=== PATIENT | male | born 1970 | race Caucasian/White ===

== ENCOUNTER 2020-12-19 17:03 | Emergency (ER) | payer OTHER, SELFPAY ==
--- NOTE | 2020-12-19 | ECG_ITS ---
Test Reason : HYPERTENSION Blood Pressure : / mmHG Vent. Rate : 071 BPM Atrial Rate : 071 BPM P-R Int : 168 ms QRS Dur : 088 ms QT Int : 414 ms P-R-T Axes : 019 006 012 degrees QTc Int : 449 ms Normal sinus rhythm Normal ECG When compared with ECG of 12-JUL-2017 01:51, No significant change was found Referred By: Generic ED Physician Electronically Signed By:FRIEDA LUBIN MD
--- NOTE | ~2020-12-19 | US_ITS ---
EXAMINATION: US VENOUS ULTRASOUND WITH DOPPLER LOWER EXTREMITY, BILATERAL CLINICAL INFORMATION: Leg pain. COMPARISON: None TECHNIQUE: Ultrasound of the deep veins is performed from the hip to the calf with compression sonography and color and pulse Doppler assessment. Spectral analysis with color-flow imaging is performed. FINDINGS: RIGHT: There is normal venous compression and respiratory variation and augmented flow. The visualized common femoral vein, superficial femoral vein, profunda femoral vein, popliteal vein, and the trifurcation region shows no evidence of deep venous thrombosis. There is no significant popliteal fossa cyst. No evidence of thrombus within the peroneal and posterior tibial veins. LEFT: There is normal venous compression and respiratory variation and augmented flow. The visualized common femoral vein, superficial femoral vein, profunda femoral vein, popliteal vein, and the trifurcation region shows no evidence of deep venous thrombosis. There is no significant popliteal fossa cyst. No evidence of thrombus in the peroneal and posterior tibial veins. If the patient's symptoms persist, followup ultrasound in 5 days 7 days might be of value to exclude proximal propagation from a non-visualized calf vein. US/US venous duplex LE IMPRESSION: No DVT demonstrated in the bilateral lower extremities.
[2020-12-19 17:27] VITALS: BP 146/100; PULSE 83; RESP 18; TEMP 36.7; O2SAT 97; BMI 35.9
[2020-12-19 18:38] LABS: Hematocrit 45.5 % (42-52); Hemoglobin 14.9 g/dl (14.0-18.0); Mean Corpuscular HGB Conc 32.7 g/dl (31.0-36.0); Mean Corpuscular Hemoglobin 29.5 pg (27.0-33.0); Mean Corpuscular Volume 90.1 fL (80-98); Mean Platelet Volume 10.6 fL (9.4-12.4); Platelet Count 198 X10*3/uL (160-400); Red Blood Count 5.05 X10*6/uL (4.60-5.80)
[2020-12-19 18:48] LABS: Anion Gap 13 (12-20); Blood Urea Nitrogen 14 mg/dL (9-16); Calcium 9.2 mg/dL (8.4-10.2); Carbon Dioxide 25 mmol/L (22-29); Chloride 109 mmol/L (96-108); Creatinine Clr Calc Pharmacy 130.2; Estimated Glomerular Filt Rate > 60; Glucose Random 96 mg/dL (60-115); Potassium 4.4 mmol/L (3.3-5.1); Sodium 143 mmol/L (135-145)
[2020-12-19 22:00] VITALS: BP 141/76; PULSE 78; RESP 16; TEMP 37; O2SAT 97
[2020-12-19 22:52] VITALS: BP 141/74; PULSE 66; RESP 16; TEMP 36.7; O2SAT 98
--- NOTE | 2020-12-19 23:16 | ED_ITS ---
HPI - General Adult General Chief complaint: General Medical Stated complaint: leg pain Time Seen by Provider: 12/19/20 23:03 History of Present Illness HPI narrative: Patient is 50 years old presents today with having bilateral leg pain has been ongoing for few days. Has a history of being on Coumadin. Patient claims compliance with medication. No fever no chills. No diaphoresis. No nausea no vomiting. Patient from home. No trauma. Related Data Previous Rx's Medication Instructions Recorded ibuprofen 400 mg PO Q6H PRN #20 tab 12/20/20 Allergies Allergy/AdvReac Type Severity Reaction Status Date / Time No Known Allergies Allergy Verified 12/19/20 17:27 Review of Systems Review of Systems: Constitutional: No Weight loss, No Fever, No Chills, No Night Sweats, No Fatigue, No Malaise ENT/Mouth: No Hearing loss, No Ear Pain, No Nasal Congestion, No Sinus Pain, No Hoarseness, No sore throat, No Rhinorrhea, No Swallowing Difficulty Eyes: No Eye Pain, No Swelling, No Redness, No Foreign Body, No Discharge, No Vision Changes Cardiovascular: No Chest Pain, No SOB, No Dyspnea on Exertion, No Orthopnea, No Edema, No Palpitations Respiratory: No Cough, No Sputum, No Wheezing, No Smoke Exposure, No Dyspnea Gastrointestinal: No Nausea, No Vomiting, No Diarrhea, No Constipation, No abdo cornelius Pain, No Hematochezia, No Melena Genitourinary: no irregular bleeding, No Dysuria, No Urinary Frequency, No Hematuria, No Urinary Incontinence, No Urgency, No Flank Pain, No Urinary Flow Changes, No Hesitancy Musculoskeletal: No joint pain, No Myalgias, No Joint Swelling. Positive bilateral lower extremity pain Skin: No Skin Lesions, No rash Neuro: No Weakness, No Numbness, No Paresthesias, No Loss of Consciousness, No Dizziness, No Headache Psych: No Anxiety/Panic, No Depression, No SI/HI/AH/VH, No Social Issues, Heme/Lymph: No Bruising, No Bleeding,No Lymphadenopathy Endocrine: No Polyuria, No Polydipsia, No Temperature Intolerance Yes all other systems are reviewed and are negative [facility] Past Medical History Attestation statement: The following information was validated with the patient. Medical History Depression DVT (deep venous thrombosis) Social History Social History Advance Directives: No Advance Directives Information Provided: Yes Physical Exam Vital Signs: Vital Signs: Last Vital Signs Temp 98.1 F 12/19/20 22:52 Pulse 66 12/19/20 22:52 Resp 16 12/19/20 22:52 BP 141/74 H 12/19/20 22:52 Pulse Ox 98 12/19/20 22:52 Body Mass Index 35.9 Appearance: Alert. Oriented X3. No acute distress. Eyes: Pupils equal, round and reactive to light. ENT: Pharynx normal. Neck: Normal inspection. Neck supple. No lymph nodes noted. No crepitus CVS: Normal heart rate and rhythm. Pulses normal. Normal S1 and S2 Respiratory: No respiratory distress. Breath sounds normal. No Wheezing. No rales Abdomen: Soft and nontender. No rigidity. No distention. good BS x4 Skin: Skin warm and dry. Normal skin color. Normal skin turgor. Extremities: No lower extremity edema. Neurovascular intact to all extremities. No Lacerations. No Rash. No calf tenderness elicited on palpation. Full range of motion. Pulses 2+ at dorsalis pedis bilaterally. Sensation of the foot intact. Neuro: Oriented X 3. No motor deficit. No sensory deficit. Moving all extermities. No slurred speech Medical Decision Making MDM Narrative Medical decision making narrative: Patient has nonspecific bilateral leg pain. There is no swelling. No travel history. Grossly able the bend the knee moves the ankle move the hip. The Doppler bilateral lower extremity was negative for DVT. Patient's creatinine is normal. Patient take Motrin for the nonspecific ache. Close follow-up outpatient basis. Lab Data Result diagrams: 12/19/20 18:20 12/19/20 18:20 Labs: Lab Results 12/19/20 12/19/20 12/19/20 Range/Units 18:20 18:20 23:25 WBC 7.0 (4.8-10.8) X10*3/uL RBC 5.05 (4.60-5.80) X10*6/uL Hgb 14.9 (14.0-18.0) g/dl Hct 45.5 (42-52) % MCV 90.1 (80-98) fL MCH 29.5 (27.0-33.0) pg MCHC 32.7 (31.0-36.0) g/dl RDW 13.0 (11.0-16.0) % Plt Count 198 (160-400) X10*3/uL MPV 10.6 (9.4-12.4) fL Absolute Nucleated RBC 0.000 (0.0-0.012) X10*3/uL Nucleated RBC % (auto) 0.0 (0.0-0.2) /100WBC PT 38.3 H (10.8-13.0) SEC INR 3.2 H (0.9-1.1) Sodium 143 (135-145) mmol/L Potassium 4.4 (3.3-5.1) mmol/L Chloride 109 H (96-108) mmol/L Carbon Dioxide 25 (22-29) mmol/L Anion Gap 13 (12-20) BUN 14 (9-16) mg/dL Creatinine 0.95 (0.5-1.4) mg/dL Estim Creat Clear Calc 130.2 Estimated GFR > 60 Random Glucose 96 (60-115) mg/dL Calcium 9.2 (8.4-10.2) mg/dL Discharge Plan Discharge Clinical Impression: Acute leg pain Patient Disposition: Home, Self-Care Instructions: Leg Pain (ED) Prescriptions: New ibuprofen 400 mg tablet 400 mg PO Q6H PRN (Reason: pain) Qty: 20 RF: 0 Referrals: Gordon Cheng MD [Primary Care Provider] - 2 days
[2020-12-19 23:50] LABS: INTERNATIONAL NORM RATIO 3.2 (0.9-1.1); Prothrombin Time 38.3 SEC (10.8-13.0)
== END 2020-12-20 02:50 | disposition home or self-care (01) ==
PROVIDERS: Emergency Provider Emergency Medicine Emergency Medical Services; PCP Internal Medicine
DX: M79.605 Pain in left leg (principal); M79.604 Pain in right leg; Z86.718 Personal history of other venous thrombosis and embolism
CPT/HCPCS: 36415; 80048; 85027; 85610; 93005; 93970; 99284

== ENCOUNTER 2021-08-27 10:39 | Emergency (ER) | payer OTHER, SELFPAY ==
--- NOTE | 2021-08-27 | ECG_ITS ---
Test Reason : chest pain Blood Pressure : / mmHG Vent. Rate : 077 BPM Atrial Rate : 077 BPM P-R Int : 158 ms QRS Dur : 086 ms QT Int : 386 ms P-R-T Axes : 037 005 008 degrees QTc Int : 436 ms Normal sinus rhythm Cannot rule out Anterior infarct , age undetermined Abnormal ECG When compared with ECG of 19-DEC-2020 18:16, No significant change was found Referred By: Generic ED Physician Electronically Signed By:FRIEDA LUBIN MD
--- NOTE | ~2021-08-27 | XR_ITS ---
EXAMINATION: XR CHEST CLINICAL INFORMATION: Chest pain. COMPARISON: Most recent CT chest dated 08/26/2018. TECHNIQUE: 2 views of the chest were obtained. FINDINGS: Stable linear scarring versus atelectasis within the left midlung. No new airspace consolidation. Redemonstration of multiple calcified granulomas. No pleural effusion or pneumothorax. Stable cardiomediastinal silhouette. XR/XR chest 2V IMPRESSION: No acute cardiopulmonary findings.
[2021-08-27 10:44] VITALS: BP 134/82; PULSE 76; RESP 20; TEMP 37.1; O2SAT 98; BMI 34.7
[2021-08-27 11:06] VITALS: BP 114/71; PULSE 78; RESP 10; TEMP 37.1; O2SAT 98
[2021-08-27 11:16] VITALS: BP 113/65; PULSE 79; RESP 14; O2SAT 97
[2021-08-27 11:20] LABS: Basophils Percent Auto 0.4 % (0-2); Eosinophils Absolute Auto 0.2 X10*3/uL (0.0-0.4); Eosinophils Percent Auto 3.5 % (0-4); Hematocrit 50.2 % (42.0-52.0); Hemoglobin 16.7 g/dl (14.0-18.0); Imm Gran Abs Auto 0.02 X10*3/uL (0.00-0.03); Imm Gran Pct Auto 0.3 % (0.0-0.4); Lymphocytes Absolute Auto 1.7 X10*3/uL (1.2-4.9); Lymphocytes Percent Auto 25.7 % (20-40); MANUAL DIFF FLAG NO; Mean Corpuscular HGB Conc 33.3 g/dl (31.0-36.0); Mean Corpuscular Hemoglobin 29.5 pg (27.0-33.0); Mean Corpuscular Volume 88.5 fL (80.0-98.0); Monocytes Absolute Auto 0.4 X10*3/uL (0.1-1.2); Monocytes Percent Auto 5.9 % (2-11); Neutrophils Absolute Auto 4.4 x10*3/uL (2.0-8.3); Neutrophils Percent Auto 64.2 % (45-73); Platelet Count 198 X10*3/uL (160-400); Red Blood Count 5.67 X10*6/uL (4.60-5.80); Red Cell Distribution Width 13.2 % (11.0-16.0); White Blood Count 6.8 X10*3/uL (4.8-10.8)
[2021-08-27 11:25] LABS: INTERNATIONAL NORM RATIO 2.4 (0.9-1.1); Prothrombin Time 28.3 SEC (9.9-13.0)
[2021-08-27 11:29] LABS: D Dimer High Sensitivity < 150 NG/ML
[2021-08-27 11:31] LABS: IDNOW Serial# 16C4AD1C
[2021-08-27 11:32] LABS: COVID-19 Test Negative (Negative)
--- NOTE | 2021-08-27 11:37 | ED_ITS ---
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 Reports feeling off over the weekend with chills and fatigue Admits CP worse on deep inspiration. Denies cough, abdominal pain, nausea/vomiting, numbness/tingling, pedal edema, recent travel complaint: chest discomfort Onset (ago): hour(s) Related Data Previous Rx's Medication Instructions Recorded ibuprofen 400 mg tablet 400 mg PO Q6H PRN #20 tab 12/20/20 Allergies Allergy/AdvReac Type Severity Reaction Status Date / Time No Known Allergies Allergy Verified 08/27/21 10:49 Review of Systems Review of Systems: Constitutional:No Fever, + Chills, + Fatigue, + Malaise ENT/Mouth: No Ear Pain, No Nasal Congestion, No sore throat, No Rhinorrhea, No Swallowing Difficulty Eyes: No Eye Pain, No Swelling, No Redness, No Discharge Cardiovascular: + Chest Pain, + SOB, No Dyspnea on Exertion, No Orthopnea, No Edema, No Palpitations Respiratory: No Cough, No Sputum, No Dyspnea Gastrointestinal: No Nausea, No Vomiting, No Diarrhea, No Constipation, No Abdominal pain Genitourinary: No irregular bleeding, No Dysuria, No Urinary Frequency, No Hematuria, No Urgency, No Flank Pain Musculoskeletal: No joint pain, No Myalgias, No Joint Swelling Skin: No Skin Lesions, No rash Neuro: No Weakness, No Numbness, No Paresthesias, No Loss of Consciousness, No Dizziness, No Headache Yes all other systems are reviewed and are negative [facility] Past Medical History Attestation statement: The following information was validated with the patient. Medical History Depression DVT (deep venous thrombosis) Social History Social History Alcohol intake: never Patient Tobacco Use Status: Never used Tobacco Use of substances other than those prescribed or required for medical reasons: No Advance Directives: No Advance Directives Information Provided: No Physical Exam Vital Signs: Vital Signs: Last Vital Signs Temp 98.6 F 08/27/21 12:24 Pulse 77 08/27/21 12:24 Resp 12 08/27/21 12:24 BP 116/67 08/27/21 12:24 Pulse Ox 97 08/27/21 12:24 BMI result Body Mass Index 34.7 Const: General: cooperative, healthy appearing and no acute distress Orientation/consciousness: patient oriented x3 Limitations: no limitations HENMT: Head: Yes normal to inspection and Yes atraumatic Ears: hearing grossly normal bilaterally General nose exam: Normal external nose present Face and sinus: Yes normal facial exam Eyes: General: appearance normal, both eyes and all related structures EOM: EOMs intact bilaterally Neck: Neck: Yes normal visual inspection and Yes no meningeal signs Chest: Chest palpation & inspection: normal inspection of the chest, no crepitus and no tenderness Resp: Effort & Inspection: normal respiratory effort and no respiratory distress Auscultation: clear to auscultation bilaterally, no rales, no rhonchi and no wheezes Cardio: Rate: regular rate Heart sounds: S1 normal heart sound present and S2 normal heart sound present GI: Inspection: Yes normal to inspection Palpation (GI): Soft to palpation, nontender, no guarding and not rigid Skin: Rashes: no rashes Wounds: no wounds Neuro: General: patient oriented x3 and no meningeal signs Gait exam (Neuro): Normal gait present Extrem: General: Yes normal to inspection, Yes no pedal edema and Yes no calf tenderness Course Course Course Narrative: -1254--no leukocytosis. INR therapeutic, D-dimer negative. Troponin negative, labs otherwise unremarkable XR chest 2V IMPRESSION: No acute cardiopulmonary findings. -1447--repeat troponin equivocal. Mi unlikely. 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 Reports feeling off over the weekend with chills and fatigue. On exam vital signs stable, NAD/nontoxic, lungs CTA, no pedal edema/calf tenderness. CP not reproducible. Concern for viral syndrome/COVID-19 vs ACS vs DVT although patient anticoagulated Plan: EKG, labs, CXR, COVID-19 testing, re-evaluate Differential Diagnosis Differential diagnosis: Likely atypical chest pain and chest pain Medical Records Data Attestation: I reviewed the patient's medical records. Lab Data Attestation: I reviewed the patient's lab results. Result diagrams: 08/27/21 11:13 08/27/21 11:13 Labs: Lab Results 08/27/21 08/27/21 08/27/21 Range/Units 11:08 11:13 11:13 WBC 6.8 (4.8-10.8) X10*3/uL RBC 5.67 (4.60-5.80) X10*6/uL Hgb 16.7 (14.0-18.0) g/dl Hct 50.2 (42.0-52.0) % MCV 88.5 (80.0-98.0) fL MCH 29.5 (27.0-33.0) pg MCHC 33.3 (31.0-36.0) g/dl RDW 13.2 (11.0-16.0) % Plt Count 198 (160-400) X10*3/uL MPV 10.0 (9.4-12.4) fL Immature Gran % (Auto) 0.3 (0.0-0.4) % Neut % (Auto) 64.2 (45-73) % Lymph % (Auto) 25.7 (20-40) % [place] % (Auto) 5.9 (2-11) % Eos % (Auto) 3.5 (0-4) % Baso % (Auto) 0.4 (0-2) % Lymph # (Auto) 1.7 (1.2-4.9) X10*3/uL [place] # (Auto) 0.4 (0.1-1.2) X10*3/uL Eos # (Auto) 0.2 (0.0-0.4) X10*3/uL Baso # (Auto) 0.0 (0.0-0.2) X10*3/uL Abs Immat Gran (auto) 0.02 (0.00-0.03) X10*3/uL Absolute Neuts (auto) 4.4 (2.0-8.3) x10*3/uL Absolute Nucleated RBC 0.000 (0.0-0.012) X10*3/uL Nucleated RBC % (auto) 0.0 (0.0-0.2) /100WBC PT (9.9-13.0) SEC INR (0.9-1.1) D-Dimer High Sensitivty NG/ML Sodium 140 (135-145) mmol/L Potassium 4.3 (3.3-5.1) mmol/L Chloride 103 (96-108) mmol/L Carbon Dioxide 29 (22-29) mmol/L Anion Gap 12 (12-20) BUN 14 (9-16) mg/dL Creatinine 0.99 (0.5-1.4) mg/dL Estim Creat Clear Calc 121.3 Estimated GFR > 60 Random Glucose 92 (60-115) mg/dL Calcium 9.6 (8.4-10.2) mg/dL Magnesium (1.6-2.6) mg/dL Total Bilirubin (0.0-1.0) mg/dL Direct Bilirubin (0.0-0.5) mg/dL AST (5-37) U/L ALT (0-40) U/L Alkaline Phosphatase (39-117) U/L Troponin I High Sens (<3.5-35.0) ng/L B-Natriuretic Peptide (<100) pg/mL Total Protein (6.5-8.0) g/dL Albumin (3.5-5.0) g/dL COVID-19 ([place]) Negative (Negative) COVID-19 Clin Com See Note 08/27/21 08/27/21 08/27/21 Range/Units 11:13 11:13 11:13 WBC (4.8-10.8) X10*3/uL RBC (4.60-5.80) X10*6/uL Hgb (14.0-18.0) g/dl Hct (42.0-52.0) % MCV (80.0-98.0) fL MCH (27.0-33.0) pg MCHC (31.0-36.0) g/dl RDW (11.0-16.0) % Plt Count (160-400) X10*3/uL MPV (9.4-12.4) fL Immature Gran % (Auto) (0.0-0.4) % Neut % (Auto) (45-73) % Lymph % (Auto) (20-40) % [place] % (Auto) (2-11) % Eos % (Auto) (0-4) % Baso % (Auto) (0-2) % Lymph # (Auto) (1.2-4.9) X10*3/uL [place] # (Auto) (0.1-1.2) X10*3/uL Eos # (Auto) (0.0-0.4) X10*3/uL Baso # (Auto) (0.0-0.2) X10*3/uL Abs Immat Gran (auto) (0.00-0.03) X10*3/uL Absolute Neuts (auto) (2.0-8.3) x10*3/uL Absolute Nucleated RBC (0.0-0.012) X10*3/uL Nucleated RBC % (auto) (0.0-0.2) /100WBC PT (9.9-13.0) SEC INR (0.9-1.1) D-Dimer High Sensitivty < 150 NG/ML Sodium (135-145) mmol/L Potassium (3.3-5.1) mmol/L Chloride (96-108) mmol/L Carbon Dioxide (22-29) mmol/L Anion Gap (12-20) BUN (9-16) mg/dL Creatinine (0.5-1.4) mg/dL Estim Creat Clear Calc Estimated GFR Random Glucose (60-115) mg/dL Calcium (8.4-10.2) mg/dL Magnesium 2.2 (1.6-2.6) mg/dL Total Bilirubin 0.8 (0.0-1.0) mg/dL Direct Bilirubin 0.3 (0.0-0.5) mg/dL AST 15 (5-37) U/L ALT 10 (0-40) U/L Alkaline Phosphatase 70 (39-117) U/L Troponin I High Sens < 3.5 (<3.5-35.0) ng/L B-Natriuretic Peptide (<100) pg/mL Total Protein 7.3 (6.5-8.0) g/dL Albumin 4.4 (3.5-5.0) g/dL COVID-19 ([place]) (Negative) COVID-19 Clin Com 08/27/21 08/27/21 08/27/21 Range/Units 11:13 11:13 14:18 WBC (4.8-10.8) X10*3/uL RBC (4.60-5.80) X10*6/uL Hgb (14.0-18.0) g/dl Hct (42.0-52.0) % MCV (80.0-98.0) fL MCH (27.0-33.0) pg MCHC (31.0-36.0) g/dl RDW (11.0-16.0) % Plt Count (160-400) X10*3/uL MPV (9.4-12.4) fL Immature Gran % (Auto) (0.0-0.4) % Neut % (Auto) (45-73) % Lymph % (Auto) (20-40) % [place] % (Auto) (2-11) % Eos % (Auto) (0-4) % Baso % (Auto) (0-2) % Lymph # (Auto) (1.2-4.9) X10*3/uL [place] # (Auto) (0.1-1.2) X10*3/uL Eos # (Auto) (0.0-0.4) X10*3/uL Baso # (Auto) (0.0-0.2) X10*3/uL Abs Immat Gran (auto) (0.00-0.03) X10*3/uL Absolute Neuts (auto) (2.0-8.3) x10*3/uL Absolute Nucleated RBC (0.0-0.012) X10*3/uL Nucleated RBC % (auto) (0.0-0.2) /100WBC PT 28.3 H (9.9-13.0) SEC INR 2.4 H (0.9-1.1) D-Dimer High Sensitivty NG/ML Sodium (135-145) mmol/L Potassium (3.3-5.1) mmol/L Chloride (96-108) mmol/L Carbon Dioxide (22-29) mmol/L Anion Gap (12-20) BUN (9-16) mg/dL Creatinine (0.5-1.4) mg/dL Estim Creat Clear Calc Estimated GFR Random Glucose (60-115) mg/dL Calcium (8.4-10.2) mg/dL Magnesium (1.6-2.6) mg/dL Total Bilirubin (0.0-1.0) mg/dL Direct Bilirubin (0.0-0.5) mg/dL AST (5-37) U/L ALT (0-40) U/L Alkaline Phosphatase (39-117) U/L Troponin I High Sens < 3.5 (<3.5-35.0) ng/L B-Natriuretic Peptide < 10 (<100) pg/mL Total Protein (6.5-8.0) g/dL Albumin (3.5-5.0) g/dL COVID-19 ([place]) (Negative) COVID-19 Clin Com Discharge Plan Discharge Clinical Impression: Atypical chest pain Patient Disposition: Home, Self-Care Instructions: Chest Pain (ED) Additional Instructions: Your blood work was reassuring today Your chest x-ray was unremarkable. you tested negative for COVID-19 Please follow-up with her doctor and Cardiology. If her symptoms persist or worsen, pain becomes more constant/unbearable please return to the emergency department Prescriptions: No Action ibuprofen 400 mg tablet 400 mg PO Q6H PRN (Reason: pain) Qty: 20 0RF Referrals: Parish Lemus MD [Physician] - 5 days
[2021-08-27 11:43] LABS: Alanine Aminotransferase 10 U/L (0-40); Albumin Level 4.4 g/dL (3.5-5.0); Alkaline Phosphatase 70 U/L (39-117); Aspartate Amino Transferase 15 U/L (5-37); Bilirubin Direct 0.3 mg/dL (0.0-0.5); Bilirubin Total 0.8 mg/dL (0.0-1.0); Magnesium 2.2 mg/dL (1.6-2.6); Total Protein 7.3 g/dL (6.5-8.0)
[2021-08-27 11:44] LABS: B Type Natriuretic Peptide < 10 pg/mL (<100); Troponin-I High Sensitivity < 3.5 ng/L (<3.5-35.0)
[2021-08-27 11:57] LABS: Anion Gap 12 (12-20); Blood Urea Nitrogen 14 mg/dL (9-16); Calcium 9.6 mg/dL (8.4-10.2); Carbon Dioxide 29 mmol/L (22-29); Chloride 103 mmol/L (96-108); Creatinine Clr Calc Pharmacy 121.3; Estimated Glomerular Filt Rate > 60; Glucose Random 92 mg/dL (60-115); Potassium 4.3 mmol/L (3.3-5.1); Sodium 140 mmol/L (135-145)
[2021-08-27 12:24] VITALS: BP 116/67; PULSE 77; RESP 12; TEMP 37; O2SAT 97
[2021-08-27 14:44] LABS: Troponin-I High Sensitivity < 3.5 ng/L (<3.5-35.0)
[2021-08-27 14:56] VITALS: BP 102/66; PULSE 76; RESP 13; TEMP 37.1; O2SAT 97
== END 2021-08-27 15:05 | disposition home or self-care (01) ==
PROVIDERS: Physician Assistant; Emergency Provider Emergency Medicine; PCP Internal Medicine
DX: R07.89 Other chest pain (principal); R06.02 Shortness of breath; Z86.718 Personal history of other venous thrombosis and embolism; Z79.01 Long term (current) use of anticoagulants; Z20.822 Contact with and (suspected) exposure to COVID-19; Z79.899 Other long term (current) drug therapy
CPT/HCPCS: 36415; 71046; 80048; 80076; 83735; 83880; 84484; 85025; 85379; 85610; 87635; 93005; 99285

== ENCOUNTER 2021-08-29 12:44 | Emergency (ER) | payer OTHER, SELFPAY ==
--- NOTE | ~2021-08-29 | CT_ITS ---
EXAMINATION: CT HEAD WITHOUT CONTRAST CLINICAL INFORMATION: Confusion. Headache. Rule out bleed. COMPARISON: Previous head CT and brain MRI June 2017 TECHNIQUE: Contiguous axial imaging was performed from the skull base to vertex without intravenous administration of contrast. This CT examination was performed using dose optimization techniques as appropriate, variously including the following: *Automated exposure control *Adjustment of mA and/or kV according to patient size (this includes techniques or standardized protocols for targeted exams where dose is matched to indication/reason for exam; i.e. extremities or head) *Use of iterative reconstruction technique DLP: 752 mGy-cm FINDINGS: There is no evidence of acute intracranial hemorrhage or territorial infarction. No abnormal mass effect or midline shift is seen. Sharpe to white matter differentiation is well preserved. No extra-axial fluid collections are identified. The ventricles are normal in size. There is no abnormal attenuation within the brain parenchyma. The osseous structures and soft tissues are normal. The mastoid air cells and visualized portions of the paranasal sinuses are well aerated. CT/CT head/brain wo con IMPRESSION: No acute intracranial findings.
--- NOTE | ~2021-08-29 | XR_ITS ---
EXAMINATION: XR CHEST CLINICAL INFORMATION: Chest pain. Rule out pneumonia. COMPARISON: Previous chest x-ray most recent August 27, 2021 TECHNIQUE: 2 views of the chest were obtained. FINDINGS: The cardiac and mediastinal contours are stable. There are small right pulmonary nodules that are stable and probably represent calcified granulomas. There is linear scarring or subsegmental atelectasis at the left lung base. This is similar to recent exam. The lungs are otherwise clear. There is no pleural effusion or pneumothorax. There are degenerative changes of the spine. XR/XR chest 2V IMPRESSION: No evidence for acute disease in the chest.
[2021-08-29 13:22] VITALS: BP 133/80; PULSE 76; RESP 18; O2SAT 98; BMI 34.7
--- NOTE | 2021-08-29 14:25 | PC.NURSE ---
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 denies hallucinations or any unsafe thoughts or plans to hurt self or others.
[2021-08-29 15:05] LABS: Appearance Urine CLEAR; Color Urine YELLOW; Glucose Urine UA NEG (NEG); Leukocyte Esterase Urine NEG (NEG); Nitrite Urine NEG (NEG); UACC Culture Trigger NO; Urine Blood 2+ (NEG); Urine Ketones 15 MG/DL (NEG); Urine Protein NEG (NEG-TRACE)
--- NOTE | 2021-08-29 15:07 | ECG_ITS ---
Test Reason : MEDCLEARANCE Blood Pressure : / mmHG Vent. Rate : 066 BPM Atrial Rate : 066 BPM P-R Int : 162 ms QRS Dur : 096 ms QT Int : 428 ms P-R-T Axes : 024 007 008 degrees QTc Int : 448 ms Normal sinus rhythm Normal ECG When compared with ECG of 27-AUG-2021 10:47, No significant change was found Referred By: Allen Anna Electronically Signed By:FRIEDA LUBIN MD
--- NOTE | 2021-08-29 15:09 | ED.AMS ---
HPI - Altered Mental Status General Chief Complaint: Psychiatric Symptoms Stated Complaint: spaced out - sent from Dr office Time Seen by Provider: 08/29/21 14:23 Source: patient and family (, Alda) Mode of arrival: ambulatory Limitations: no limitations History of Present Illness HPI narrative: 51-year-old male who presents emergency department complaining of I feel very anxious, nervous and tired. According to his , today the patient seemed to be off. He was unable to recall details of what happened in the morning. The patient states that he is depressed and feeling very anxious. He cannot identify any trigger for his symptoms. He states he does have a history of depression but was feeling better and stopped his medications about a urine half prior. He states that he has been having difficulty sleeping over the past several nights he has had insomnia. He has also had a decreased appetite. The patient was seen in the emergency department on 08/27/2021 for substernal chest pressure and shortness of breath. At that time he also stated that he was feeling off over the weekend. 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 The patient's workup for his last ED visit was unremarkable, his INR was normal, his D-dimer was below detectable limits in his troponin was below detectable limits x2. Related Data Previous Rx's Medication Instructions Recorded ibuprofen 400 mg tablet 400 mg PO Q6H PRN #20 tab 12/20/20 lorazepam 2 mg tablet (Ativan) 2 mg PO TID PRN #14 tab 08/29/21 Allergies Allergy/AdvReac Type Severity Reaction Status Date / Time No Known Allergies Allergy Verified 08/27/21 10:49 [facility] Past Medical History Medical History Depression DVT (deep venous thrombosis) Social History Social History Alcohol intake: never Patient Tobacco Use Status: Never used Tobacco Advance Directives: No Advance Directives Information Provided: No Physical Exam ED Vital Signs: Vital Signs - 24 hr 08/29/21 13:22 Pulse Rate 76 Respiratory Rate 18 Blood Pressure 133/80 Pulse Oximetry 98 BMI result Body Mass Index 34.7 Course Course Course Narrative: 51-year-old male who presents emergency department for evaluation of multiple complaints including anxiety, depression, difficulty with his memory, chest pain, insomnia, decreased appetite. Patient does have a history of depression but has not been on medications for 1.5 years. Vital signs were unremarkable. Physical examination was unremarkable. The patient's workup included EKG, COVID-19, drug screen, urinalysis, CBC, alcohol, PT/INR, comprehensive metabolic panel, D-dimer, PTT and troponin. All of these tests were unremarkable. Patient was seen by the crisis counselor who felt that the patient could be managed as an outpatient. Patient did receive Ativan 2 mg orally with some improvement of his anxiety. Patient is following up with his provider tomorrow to discuss restarting his anti depression medications. The patient was given a prescription for Ativan 2 mg tablets, 1 pill every 6-8 hours as needed for anxiety, dispense 12. MDM - Altered Mental Status Lab Data Result diagrams: 08/29/21 17:02 08/29/21 17:02 Labs: Lab Results 08/29/21 08/29/21 08/29/21 Range/Units 14:43 14:43 14:43 WBC (4.8-10.8) X10*3/uL RBC (4.60-5.80) X10*6/uL Hgb (14.0-18.0) g/dl Hct (42.0-52.0) % MCV (80.0-98.0) fL MCH (27.0-33.0) pg MCHC (31.0-36.0) g/dl RDW (11.0-16.0) % Plt Count (160-400) X10*3/uL MPV (9.4-12.4) fL Immature Gran % (Auto) (0.0-0.4) % Neut % (Auto) (45-73) % Lymph % (Auto) (20-40) % [place] % (Auto) (2-11) % Eos % (Auto) (0-4) % Baso % (Auto) (0-2) % Lymph # (Auto) (1.2-4.9) X10*3/uL [place] # (Auto) (0.1-1.2) X10*3/uL Eos # (Auto) (0.0-0.4) X10*3/uL Baso # (Auto) (0.0-0.2) X10*3/uL Abs Immat Gran (auto) (0.00-0.03) X10*3/uL Absolute Neuts (auto) (2.0-8.3) x10*3/uL Absolute Nucleated RBC (0.0-0.012) X10*3/uL Nucleated RBC % (auto) (0.0-0.2) /100WBC PT (9.9-13.0) SEC INR (0.9-1.1) APTT (24.1-38.0) SEC D-Dimer High Sensitivty NG/ML Sodium (135-145) mmol/L Potassium (3.3-5.1) mmol/L Chloride (96-108) mmol/L Carbon Dioxide (22-29) mmol/L Anion Gap (12-20) BUN (9-16) mg/dL Creatinine (0.5-1.4) mg/dL Estim Creat Clear Calc Estimated GFR Random Glucose (60-115) mg/dL Calcium (8.4-10.2) mg/dL Total Bilirubin (0.0-1.0) mg/dL AST (5-37) U/L ALT (0-40) U/L Alkaline Phosphatase (39-117) U/L Troponin I High Sens (<3.5-35.0) ng/L Total Protein (6.5-8.0) g/dL Albumin (3.5-5.0) g/dL Urine Color YELLOW Urine Appearance CLEAR Urine pH 6.0 (5.0-8.0) Ur Specific [place] 1.020 (1.005-1.025) Urine Protein NEG (NEG-TRACE) MG/DL Urine Glucose (UA) NEG (NEG) MG/DL Urine Ketones 15 (NEG) MG/DL Urine Blood 2+ H (NEG) Urine Nitrite NEG (NEG) Ur Leukocyte Esterase NEG (NEG) Urine RBC 10-14 H (0) /HPF Urine WBC 0 (0-4) /HPF Ur Squamous Epith Cells NONE /LPF Urine Bacteria NONE /LPF Urine Yeast TRACE /HPF Urine Opiates Screen Not Detected (Not Detect) Urine Fentanyl Screen Not Detected (Not Detect) Ur Barbiturates Screen Not Detected (Not Detect) Ur Phencyclidine Scrn Not Detected (Not Detect) Ur Amphetamines Screen Not Detected (Not Detect) U Benzodiazepines Scrn Not Detected (Not Detect) Urine Cocaine Screen Not Detected (Not Detect) U Marijuana (THC) Screen Not Detected (Not Detect) Ethyl Alcohol mg/dL COVID-19 ([place]) Negative (Negative) COVID-19 Clin Com See Note 08/29/21 08/29/21 08/29/21 Range/Units 17:02 17:02 17:02 WBC 6.7 (4.8-10.8) X10*3/uL RBC 5.45 (4.60-5.80) X10*6/uL Hgb 16.1 (14.0-18.0) g/dl Hct 48.3 (42.0-52.0) % MCV 88.6 (80.0-98.0) fL MCH 29.5 (27.0-33.0) pg MCHC 33.3 (31.0-36.0) g/dl RDW 13.2 (11.0-16.0) % Plt Count 189 (160-400) X10*3/uL MPV 10.3 (9.4-12.4) fL Immature Gran % (Auto) 0.1 (0.0-0.4) % Neut % (Auto) 62.7 (45-73) % Lymph % (Auto) 28.4 (20-40) % [place] % (Auto) 5.4 (2-11) % Eos % (Auto) 2.8 (0-4) % Baso % (Auto) 0.6 (0-2) % Lymph # (Auto) 1.9 (1.2-4.9) X10*3/uL [place] # (Auto) 0.4 (0.1-1.2) X10*3/uL Eos # (Auto) 0.2 (0.0-0.4) X10*3/uL Baso # (Auto) 0.0 (0.0-0.2) X10*3/uL Abs Immat Gran (auto) 0.01 (0.00-0.03) X10*3/uL Absolute Neuts (auto) 4.2 (2.0-8.3) x10*3/uL Absolute Nucleated RBC 0.000 (0.0-0.012) X10*3/uL Nucleated RBC % (auto) 0.0 (0.0-0.2) /100WBC PT (9.9-13.0) SEC INR (0.9-1.1) APTT 48.4 H (24.1-38.0) SEC D-Dimer High Sensitivty < 150 NG/ML Sodium 140 (135-145) mmol/L Potassium 4.5 (3.3-5.1) mmol/L Chloride 104 (96-108) mmol/L Carbon Dioxide 26 (22-29) mmol/L Anion Gap 15 (12-20) BUN 14 (9-16) mg/dL Creatinine 0.95 (0.5-1.4) mg/dL Estim Creat Clear Calc 126.4 Estimated GFR > 60 Random Glucose 86 (60-115) mg/dL Calcium 9.5 (8.4-10.2) mg/dL Total Bilirubin 0.9 (0.0-1.0) mg/dL AST 16 (5-37) U/L ALT 11 (0-40) U/L Alkaline Phosphatase 70 (39-117) U/L Troponin I High Sens (<3.5-35.0) ng/L Total Protein 7.3 (6.5-8.0) g/dL Albumin 4.4 (3.5-5.0) g/dL Urine Color Urine Appearance Urine pH (5.0-8.0) Ur Specific [place] (1.005-1.025) Urine Protein (NEG-TRACE) MG/DL Urine Glucose (UA) (NEG) MG/DL Urine Ketones (NEG) MG/DL Urine Blood (NEG) Urine Nitrite (NEG) Ur Leukocyte Esterase (NEG) Urine RBC (0) /HPF Urine WBC (0-4) /HPF Ur Squamous Epith Cells /LPF Urine Bacteria /LPF Urine Yeast /HPF Urine Opiates Screen (Not Detect) Urine Fentanyl Screen (Not Detect) Ur Barbiturates Screen (Not Detect) Ur Phencyclidine Scrn (Not Detect) Ur Amphetamines Screen (Not Detect) U Benzodiazepines Scrn (Not Detect) Urine Cocaine Screen (Not Detect) U Marijuana (THC) Screen (Not Detect) Ethyl Alcohol mg/dL COVID-19 ([place]) (Negative) COVID-19 Clin Com 08/29/21 08/29/21 08/29/21 Range/Units 17:02 17:02 17:02 WBC (4.8-10.8) X10*3/uL RBC (4.60-5.80) X10*6/uL Hgb (14.0-18.0) g/dl Hct (42.0-52.0) % MCV (80.0-98.0) fL MCH (27.0-33.0) pg MCHC (31.0-36.0) g/dl RDW (11.0-16.0) % Plt Count (160-400) X10*3/uL MPV (9.4-12.4) fL Immature Gran % (Auto) (0.0-0.4) % Neut % (Auto) (45-73) % Lymph % (Auto) (20-40) % [place] % (Auto) (2-11) % Eos % (Auto) (0-4) % Baso % (Auto) (0-2) % Lymph # (Auto) (1.2-4.9) X10*3/uL [place] # (Auto) (0.1-1.2) X10*3/uL Eos # (Auto) (0.0-0.4) X10*3/uL Baso # (Auto) (0.0-0.2) X10*3/uL Abs Immat Gran (auto) (0.00-0.03) X10*3/uL Absolute Neuts (auto) (2.0-8.3) x10*3/uL Absolute Nucleated RBC (0.0-0.012) X10*3/uL Nucleated RBC % (auto) (0.0-0.2) /100WBC PT 29.4 H (9.9-13.0) SEC INR 2.5 H (0.9-1.1) APTT (24.1-38.0) SEC D-Dimer High Sensitivty NG/ML Sodium (135-145) mmol/L Potassium (3.3-5.1) mmol/L Chloride (96-108) mmol/L Carbon Dioxide (22-29) mmol/L Anion Gap (12-20) BUN (9-16) mg/dL Creatinine (0.5-1.4) mg/dL Estim Creat Clear Calc Estimated GFR Random Glucose (60-115) mg/dL Calcium (8.4-10.2) mg/dL Total Bilirubin (0.0-1.0) mg/dL AST (5-37) U/L ALT (0-40) U/L Alkaline Phosphatase (39-117) U/L Troponin I High Sens < 3.5 (<3.5-35.0) ng/L Total Protein (6.5-8.0) g/dL Albumin (3.5-5.0) g/dL Urine Color Urine Appearance Urine pH (5.0-8.0) Ur Specific [place] (1.005-1.025) Urine Protein (NEG-TRACE) MG/DL Urine Glucose (UA) (NEG) MG/DL Urine Ketones (NEG) MG/DL Urine Blood (NEG) Urine Nitrite (NEG) Ur Leukocyte Esterase (NEG) Urine RBC (0) /HPF Urine WBC (0-4) /HPF Ur Squamous Epith Cells /LPF Urine Bacteria /LPF Urine Yeast /HPF Urine Opiates Screen (Not Detect) Urine Fentanyl Screen (Not Detect) Ur Barbiturates Screen (Not Detect) Ur Phencyclidine Scrn (Not Detect) Ur Amphetamines Screen (Not Detect) U Benzodiazepines Scrn (Not Detect) Urine Cocaine Screen (Not Detect) U Marijuana (THC) Screen (Not Detect) Ethyl Alcohol < 10 mg/dL COVID-19 ([place]) (Negative) COVID-19 Clin Com Discharge Plan Discharge Clinical Impression: Anxiety, Episodic memory loss Depression Qualifiers: Depression Type: unspecified Qualified Code(s): F32.A - Depression, unspecified Chest pain Qualifiers: Chest pain type: unspecified Qualified Code(s): R07.9 - Chest pain, unspecified Patient Disposition: Home, Self-Care Additional Instructions: Your laboratory evaluation today was normal. You had a CBC, CMP, D-dimer, drug screen, alcohol level, COVID-19 test, high sensitivity troponin I, D-dimer. All of these tests were normal. Your urinalysis did reveal a small amount of microscopic blood, but this is not significant and not related to your symptoms. Your INR 2.5 which is in the therapeutic range of 2-3.0. Your EKG was unremarkable. Your chest x-ray was normal. The CT scan of your head without contrast was normal. At this time, I think that your symptoms are caused by depression anxiety. I am giving you a prescription for Ativan 2 mg pills, you can take 1 pill every 6-8 hours as needed. This medication is a benzodiazepine and can be addicting. If your concerned about addiction do not get this medication filled. Follow-up with your doctor tomorrow as scheduled. Please return to the emergency department if your symptoms get worse or if you develop any symptoms that are concerning to you. Prescriptions: New lorazepam [Ativan] 2 mg tablet 2 mg PO TID PRN (Reason: anxiety) Qty: 14 0RF Rx Instructions: Patient may request partial fill No Action ibuprofen 400 mg tablet 400 mg PO Q6H PRN (Reason: pain) Qty: 20 0RF
[2021-08-29 15:13] LABS: WBC Urine 0 /HPF (0-4)
[2021-08-29 15:19] LABS: Amphetamine Screen Urine Not Detected (Not Detect); Barbiturates, Urine Not Detected (Not Detect); Benzodiazepines Screen Urine Not Detected (Not Detect); Cannabinoid Screen Urine Not Detected (Not Detect); Cocaine Screen Urine Not Detected (Not Detect); Fentanyl, urine Not Detected (Not Detect); Opiate Screen Urine Not Detected (Not Detect); Phencyclidine Screen Urine Not Detected (Not Detect)
[2021-08-29 15:20] LABS: COVID-19 Test Negative (Negative); IDNOW Serial# 55D5AD1C
[2021-08-29] MEDS: LORazepam 1 MG TABLET 2 MG PO (15:48)
[2021-08-29 17:08] LABS: MANUAL DIFF FLAG NO
[2021-08-29 17:09] LABS: Basophils Percent Auto 0.6 % (0-2); Eosinophils Absolute Auto 0.2 X10*3/uL (0.0-0.4); Eosinophils Percent Auto 2.8 % (0-4); Hematocrit 48.3 % (42.0-52.0); Hemoglobin 16.1 g/dl (14.0-18.0); Imm Gran Abs Auto 0.01 X10*3/uL (0.00-0.03); Imm Gran Pct Auto 0.1 % (0.0-0.4); Lymphocytes Absolute Auto 1.9 X10*3/uL (1.2-4.9); Lymphocytes Percent Auto 28.4 % (20-40); Mean Corpuscular HGB Conc 33.3 g/dl (31.0-36.0); Mean Corpuscular Hemoglobin 29.5 pg (27.0-33.0); Mean Corpuscular Volume 88.6 fL (80.0-98.0); Mean Platelet Volume 10.3 fL (9.4-12.4); Monocytes Absolute Auto 0.4 X10*3/uL (0.1-1.2); Monocytes Percent Auto 5.4 % (2-11); Neutrophils Absolute Auto 4.2 x10*3/uL (2.0-8.3); Neutrophils Percent Auto 62.7 % (45-73); Platelet Count 189 X10*3/uL (160-400); Red Blood Count 5.45 X10*6/uL (4.60-5.80); Red Cell Distribution Width 13.2 % (11.0-16.0); White Blood Count 6.7 X10*3/uL (4.8-10.8)
[2021-08-29 17:16] LABS: INTERNATIONAL NORM RATIO 2.5 (0.9-1.1); Prothrombin Time 29.4 SEC (9.9-13.0)
[2021-08-29 17:19] LABS: Partial Thromboplastin Time 48.4 SEC (24.1-38.0)
[2021-08-29 17:31] LABS: Alanine Aminotransferase 11 U/L (0-40); Albumin Level 4.4 g/dL (3.5-5.0); Alkaline Phosphatase 70 U/L (39-117); Anion Gap 15 (12-20); Aspartate Amino Transferase 16 U/L (5-37); Bilirubin Total 0.9 mg/dL (0.0-1.0); Blood Urea Nitrogen 14 mg/dL (9-16); Calcium 9.5 mg/dL (8.4-10.2); Carbon Dioxide 26 mmol/L (22-29); Chloride 104 mmol/L (96-108); Creatinine Clr Calc Pharmacy 126.4; Estimated Glomerular Filt Rate > 60; Glucose Random 86 mg/dL (60-115); Potassium 4.5 mmol/L (3.3-5.1); Sodium 140 mmol/L (135-145); Total Protein 7.3 g/dL (6.5-8.0)
[2021-08-29 17:34] LABS: D Dimer High Sensitivity < 150 NG/ML; Troponin-I High Sensitivity < 3.5 ng/L (<3.5-35.0)
[2021-08-29 17:35] LABS: Ethanol < 10 mg/dL
--- NOTE | 2021-08-29 18:17 | MHC.CARE ---
Pt is tired and oriented x4, laying on his bed in the behavioral health pod, dressed in hospital attire. He is disheveled and appears older than his stated age. Eye contact is intermittent. Speech is minimal. Sleep is poor. Appetite is okay. Mood is anxious with congruent affect. Pt denies AVH and does not appear to be responding to internal stimuli. Pt endorses passive thoughts of , no plan or intent. Pt denies HI/. Insight and judgment are fair. Memory and impulse control are intact. Concentration is okay. Pt is a [age] year old, , Greek-speaking, , cisgender male, who met with CARE Team today at [facility] ED secondary to worsening anxiety and depression. Pt is scheduled to meet with his PCP in the morning virtually to discuss restarting pt on his psychiatric medications which he stopped over a year ago. He reports increased panic attacks and feelings of worthlessness over the past week or so. He is interested in starting one-on-one therapy and meeting with an outpatient psychiatric provider so CARE Team will refer him to [facility]. CARE Team explored higher levels of care with pt, but pt is extremely resistant to both PHP and inpt psychiatric treatment at this time. The plan is for pt to be discharged home to meet with his PCP in the morning about restarting his psychiatric medications, he has been encouraged to reach out to [facility] crisis for assessment if his symptoms worsen or his PCP is not willing to restart his medications. CARE Team will call pt after his appointment in the morning to follow up with him. This disposition is discussed with and agreed upon by ED attending physician, Dr. Anna, and CARE dental financial coordinator, Roxanne Robison [employer].
--- NOTE | 2021-08-30 10:32 | MHC.CARE ---
CARE Team contacts pt as a follow up to his ED visit. Pt stated that he has been feeling better since his visit and found this facility to be very helpful to him.? He reports anxiety but it is not as elevated as it was when he arrived here.? He attributes this to some frustration resulting from the visit with his PCP and his not making any progress with his PCP and treatment for anxiety.? He reports that he has another appointment at the same facility tomorrow at 1115 with a different provider. Pt is looking forward to getting into therapy ([facility] referral placed by CARE Team).
== END 2021-08-29 18:55 | disposition home or self-care (01) ==
PROVIDERS: Emergency Provider Emergency Medicine Emergency Medical Services; PCP Internal Medicine
DX: R41.3 Other amnesia (principal); F41.9 Anxiety disorder, unspecified; F32.A Depression, unspecified; R07.9 Chest pain, unspecified; Z20.822 Contact with and (suspected) exposure to COVID-19; Z86.718 Personal history of other venous thrombosis and embolism; Z79.01 Long term (current) use of anticoagulants
CPT/HCPCS: 36415; 70450; 71046; 80053; 80307; 81001; 82077; 84484; 85025; 85379; 85610; 85730; 87635; 93005; 99284

== ENCOUNTER 2022-01-29 12:05 | Emergency (ER) | payer OTHER, SELFPAY ==
[2022-01-29 13:33] VITALS: BP 133/65; PULSE 75; RESP 18; TEMP 37.2; O2SAT 97; BMI 33.3
--- NOTE | 2022-01-29 15:15 | ED.GENADULT ---
HPI - General Adult General Chief complaint: General Medical Stated complaint: Bumps on arms and legs Time Seen by Provider: 01/29/22 15:08 Source: patient Mode of arrival: ambulatory Limitations: no limitations History of Present Illness HPI narrative: Patient presents emergency department for evaluation of her rash that started on his legs yesterday noticed a few small bumps on his arm well today. He tried calamine lotion and [id number] anti-itch cream without improvement. He denies any known exposures, being outdoors, plant exposure, new detergents/soaps/clothing. Denies fevers, or chills. Others in the home do not have a similar rash. Related Data Previous Rx's Medication Instructions Recorded ibuprofen 400 mg tablet 400 mg PO Q6H PRN pain #20 tabs 12/20/20 lorazepam 2 mg tablet (Ativan) 2 mg PO TID PRN anxiety #14 tabs 08/29/21 hydrocortisone 2.5 % topical cream 1 appl topical BID 1 week #28 grams 01/29/22 Allergies Allergy/AdvReac Type Severity Reaction Status Date / Time No Known Allergies Allergy Verified 01/29/22 13:33 Review of Systems Review of Systems: Skin: Positive rash Yes all other systems are reviewed and are negative PMFSH Past Medical History Attestation statement: The following information was validated with the patient. Source: old records reviewed Medical History Depression DVT (deep venous thrombosis) Social History Social History Alcohol intake: never Patient Tobacco Use Status: Never used Tobacco Advance Directives: No Advance Directives Information Provided: Yes Physical Exam ED Vital Signs: Vital Signs - 24 hr 01/29/22 13:33 Temperature 99.0 F Pulse Rate 75 Respiratory Rate 18 Blood Pressure 133/65 Pulse Oximetry 97 Oxygen Delivery Method Room Air BMI result Body Mass Index 33.3 Appearance: Alert.?Oriented to person, place and time. No acute distress.?Normal affect. Neck: Normal inspection.? Neck supple.?? CVS: Heart sounds normal. Normal heart rate and rhythm.? Pulses normal.?? Respiratory: No respiratory distress.? Lung sounds clear to auscultation bilaterally?? Abdomen: Soft and non-tender. ? Skin: Skin warm and dry.? Normal skin color.? Maculopapular rash to the bilateral lower extremities Extremities: No lower extremity edema.? No calf ttp? Neuro: Moves all extremities spontaneously. Sensation intact bilaterally. No motor deficits Ambulates with normal steady gait. Course Course Course Narrative: Patient is a 51-year-old male who presents emergency department for evaluation of a rash to the bilateral lower extremities with extension to the pains today. Unknown causes exposure. Denies any prior similar we presenting rashes. Failed OTC measures. Not consistent with scabies, no tracking. Non-tender upon palpation. No surrounding warmth, swelling, drainage. Consistent with contact dermatitis. Discussed cleansing with warm water and consented so, he prescription for topical steroids, follow-up with primary care provider as needed. Discussed worrisome signs and symptoms to return back to the emergency department for. All questions were answered, he was discharged in stable condition. Medical Decision Making Medical Records Medical records reviewed: Yes I reviewed the patient's medical records. Discharge Plan Discharge Clinical Impression: Contact dermatitis Patient Disposition: Home, Self-Care Instructions: Contact Dermatitis (ED) Additional Instructions: Be sure to cleansed the areas with warm water and non scented soap. Given given a prescription for hydrocortisone cream apply this twice daily to the areas after cleansing. Try to avoid scratching the area to prevent any further spread or worsening of symptoms. Follow-up with your primary care provider as needed. Prescriptions: New hydrocortisone 2.5 % cream 1 appl topical BID 7 Days Qty: 28 0RF No Action ibuprofen 400 mg tablet 400 mg PO Q6H PRN (Reason: pain) Qty: 20 0RF lorazepam [Ativan] 2 mg tablet 2 mg PO TID PRN (Reason: anxiety) Qty: 14 0RF Rx Instructions: Patient may request partial fill Discharge Date/Time: 01/29/22 15:45
== END 2022-01-29 15:45 | disposition home or self-care (01) ==
PROVIDERS: Emergency Provider Emergency Medicine; PCP Internal Medicine
DX: L25.9 Unspecified contact dermatitis, unspecified cause (principal)
CPT/HCPCS: 99282; 99283

== ENCOUNTER 2022-06-18 06:32 | Emergency (ER) | payer OTHER, SELFPAY ==
[2022-06-18 06:57] VITALS: BP 135/69; PULSE 71; RESP 20; TEMP 36.2; O2SAT 99; BMI 33.3
[2022-06-18 07:17] VITALS: BP 132/70; PULSE 69; RESP 15; TEMP 36.8; O2SAT 99
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
== END 2022-06-18 08:22 | disposition home or self-care (01) ==
PROVIDERS: Emergency Provider Emergency Medicine; PCP Internal Medicine
DX: T23.122A Burn of first degree of single left finger (nail) except thumb, initial encounter (principal); T31.0 Burns involving less than 10% of body surface; X17.XXXA Contact with hot engines, machinery and tools, initial encounter; Y93.9 Activity, unspecified; Y92.9 Unspecified place or not applicable; Y99.9 Unspecified external cause status
CPT/HCPCS: 99283; 99284

== ENCOUNTER 2022-09-08 19:16 | Emergency (ER) | payer OTHER, SELFPAY ==
--- NOTE | ~2022-09-08 | XR_ITS ---
EXAMINATION: CR KNEE, LEFT CLINICAL INFORMATION: Pain. COMPARISON: None available. TECHNIQUE: Two views of the left knee. FINDINGS: Mild periarticular osteopenia. No acute fracture or dislocation. Minimal joint space narrowing in the medial femoral compartment and patellofemoral compartments. No significant articular surface spurring in the knee joint. Prominent spurring at the superior pole of the patella at the quadriceps insertion site seen. No significant knee joint effusion. XR/XR knee LT 2V IMPRESSION: 1. Mild periarticular osteopenia. No acute fracture or dislocation. 2. Mild degenerative changes in the medial femoral compartment and patellofemoral compartments.
[2022-09-08 19:53] VITALS: BP 111/65; PULSE 75; RESP 18; TEMP 36.6; O2SAT 98; BMI 37.2
--- NOTE | 2022-09-08 19:56 | ED.GENADULT ---
HPI - General Adult General Chief complaint: Extremity Injury, Lower <MINDY Rae - Last Filed: 09/08/22 19:57> Stated complaint: left knee pain <MINDY Rae - Last Filed: 09/08/22 19:57> Time Seen by Provider: 09/08/22 21:28 <MINDY Rae - Last Filed: 09/08/22 19:57> Source: patient, family and RN notes reviewed <Lionel Young - Last Filed: 09/08/22 21:49> Mode of arrival: wheelchair <Lionel Young - Last Filed: 09/08/22 21:49> Limitations: no limitations <Lionel Young - Last Filed: 09/08/22 21:49> History of Present Illness HPI narrative: 52-year-old male presents for evaluation of left knee pain The patient reports that his symptoms started about an hour prior to arrival. He reports that he felt well when he woke up this morning. He states that he was on his knees working on a car for several hours. He did not fall or experiencing twisting injuries. He reports that after showering he noticed that his left knee was significantly painful and he is having difficulty walking on the leg. No other complaints or concerns <Lionel Young - Last Filed: 09/08/22 21:49> Related Data Home medications: Home Medications Medication Instructions Recorded Confirmed cholecalciferol (vitamin D3) 25 25 mcg PO DAILY 01/31/22 mcg (1,000 unit) tablet fluoxetine 40 mg capsule 40 mg PO DAILY 01/31/22 melatonin 5 mg tablet 5 mg PO BEDTIME 01/31/22 warfarin 5 mg tablet 5 mg PO DAILY 01/31/22 Previous Rx's Medication Instructions Recorded hydrocortisone 2.5 % topical cream 1 appl topical BID 1 week #28 grams 01/29/22 hydroxyzine HCl 25 mg tablet 25 mg PO BID PRN itching #14 tabs 01/31/22 prednisone 20 mg tablet 40 mg PO DAILY 5 days #10 tabs 01/31/22 bacitracin 500 unit/gram topical 1 appl topical Q8H #14 grams 06/18/22 ointment oxycodone-acetaminophen 5 mg-325 1 tab PO Q6H PRN severe pain 09/08/22 mg tablet (Percocet) (scale score 7-10) #14 tabs <MINDY Rae - Last Filed: 09/08/22 19:57> Allergies/adverse reactions: Allergies Allergy/AdvReac Type Severity Reaction Status Date / Time No Known Allergies Allergy Verified 09/08/22 19:52 <MINDY Rae - Last Filed: 09/08/22 19:57> Review of Systems Constitutional: Constitutional: Denies fever(s) and Denies frequent falls <Lionel Young - Last Filed: 09/08/22 21:49> Respiratory: Respiratory: Denies cough <Lionel Yuong - Last Filed: 09/08/22 21:49> Musculoskeletal: Musculoskeletal: Reports arthralgias and Reports joint swelling <Lionel Young - Last Filed: 09/08/22 21:49> Integumentary/Breasts: Comments: And I skin changes <Lionel Young - Last Filed: 09/08/22 21:49> Neurologic: Denies frequent falls <Lionel Young - Last Filed: 09/08/22 21:49> [facility] Past Medical History Medical History: Medical History Depression DVT (deep venous thrombosis) <MINDY Rae - Last Filed: 09/08/22 19:57> Social History Social History: Social History Alcohol intake: never Patient Tobacco Use Status: Never used Tobacco Advance Directives: No Advance Directives Information Provided: No <MINDY Rae - Last Filed: 09/08/22 19:57> Physical Exam ED Vital Signs: Vital Signs - 24 hr 09/08/22 19:53 Temperature 97.9 F Pulse Rate 75 Respiratory Rate 18 Blood Pressure 111/65 Pulse Oximetry 98 BMI result Body Mass Index 37.2 <MINDY Rae - Last Filed: 09/08/22 19:57> Vital Signs - 24 hr 09/08/22 19:53 Temperature 97.9 F Pulse Rate 75 Respiratory Rate 18 Blood Pressure 111/65 Pulse Oximetry 98 BMI result Body Mass Index 37.2 <Lionel Young - Last Filed: 09/08/22 21:49> Const General: healthy appearing, comfortable, no acute distress, alert and awake <Lionel Hoang Last Filed: 09/08/22 21:49> Nutritional Appearance: well nourished <Lionelausten Hoang Last Filed: 09/08/22 21:49> Orientation/consciousness: patient oriented x3 <Lionelausten Hoang Last Filed: 09/08/22 21:49> Resp Effort & Inspection: normal respiratory effort, able to speak in complete sentences, no audible wheezes and not labored <Lionelausten Hoang Last Filed: 09/08/22 21:49> Skin General skin exam: no rashes or lesions noted and elasticity normal <Lionel [place] - Last Filed: 09/08/22 21:49> Lesions: no lesions <Lionelausten Hoang Last Filed: 09/08/22 21:49> Rashes: no rashes <Lionelausten Hoang Last Filed: 09/08/22 21:49> Neuro General: patient oriented x3 <Lionelausten Hoagn Last Filed: 09/08/22 21:49> Extrem Other: Finger amputation of left hand. And the patient has mild edema in the left infrapatellar region. This area is tender to palpation. There are no overlying skin changes. There is a trace joint effusion. There is a left lower extremity off the bed without assistance. No laxity with anterior drawer testing. <Lionel Young Last Filed: 09/08/22 21:49> Course Course Course Narrative: RME performed by Fatuma Reeder PA-C. Patient is a 52 year old male presenting to the emergency department with left knee pain. Patient was working on a car, was on his knees, and now his pain when he extends his left knee. Imaging ordered. <MINDY Rae - Last Filed: 09/08/22 19:57> Medical Decision Making Medical Decision Making MDM Narrative: Likely the patient likely has osteoarthritis of the left knee. He likely exacerbated this well kneeling down to work on the car. There are no skin changes, redness, fevers to suggest infectious process. There was no traumatic injury to suggest ligamentous injury. The patient is on Coumadin for history of DVT. Therefore we can not give NSAIDs. The patient treated with Percocet for short course. He will follow-up with orthopedics <Lionel Young - Last Filed: 09/08/22 21:49> Differential Diagnosis Knee pain Knee sprain Osteoarthritis Joint effusion Hemarthrosis Septic joint less likely Ligamentous injury The fracture <Lionel Young - Last Filed: 09/08/22 21:49> Radiology Impression Discussion of test interpretation with radiology: I have reviewed the radiologist's reading. <Lionel Young - Last Filed: 09/08/22 21:49> Radiologist Impression: Mild degenerative changes the left knee without acute fracture <Lionel Young - Last Filed: 09/08/22 21:49> Discharge Plan Discharge Clinical Impression: Acute pain of left knee <MINDY Rae - Last Filed: 09/08/22 19:57> Patient Disposition: Home, Self-Care <MINDY Rae - Last Filed: 09/08/22 19:57> Instructions: Knee Pain (ED) <MINDY Rae - Last Filed: 09/08/22 19:57> Additional Instructions: Your pain is likely related to osteoarthritis that was exacerbated by kneeling down today. There are no evidence of bony injuries. Unfortunately you cannot take NSAIDs due to your Coumadin use. Take Percocet as needed for severe, breakthrough pain. Alcohol or drive after taking it I ice to the area every 4 hours for 15 minutes for the next 2-3 days Elevate the leg above your heart while resting <MINDY Rae - Last Filed: 09/08/22 19:57> Prescriptions: New oxycodone-acetaminophen [Percocet] 5-325 mg tablet 1 tab PO Q6H PRN (Reason: severe pain (scale score 7-10)) Qty: 14 0RF Rx Instructions: Partial Fill upon patient request. No Action hydrocortisone 2.5 % cream 1 appl topical BID 7 Days Qty: 28 0RF bacitracin 500 unit/gram ointment 1 appl topical Q8H Qty: 14 0RF warfarin 5 mg tablet 5 mg PO DAILY cholecalciferol (vitamin D3) 25 mcg (1,000 unit) tablet 25 mcg PO DAILY fluoxetine 40 mg capsule 40 mg PO DAILY melatonin 5 mg tablet 5 mg PO BEDTIME prednisone 20 mg tablet 40 mg PO DAILY 5 Days Qty: 10 0RF hydroxyzine HCl 25 mg tablet 25 mg PO BID PRN (Reason: itching) Qty: 14 0RF <MINDY Rae - Last Filed: 09/08/22 19:57> Referrals: Raphael Garvey MD [Physician] - <MINDY Rae - Last Filed: 09/08/22 19:57>
[2022-09-08] MEDS: Acetaminophen 325 MG TABLET 650 MG PO (21:46)
[2022-09-08] MEDS: oxyCODONE HCl Immed Release 5 MG TABLET 10 MG PO (21:46)
== END 2022-09-08 21:53 | disposition home or self-care (01) ==
PROVIDERS: Emergency Provider Emergency Medicine Emergency Medical Services; PCP Internal Medicine
DX: M25.562 Pain in left knee (principal); Z86.718 Personal history of other venous thrombosis and embolism; Z79.899 Other long term (current) drug therapy; Z79.01 Long term (current) use of anticoagulants
CPT/HCPCS: 73560; 99283

== ENCOUNTER 2023-04-09 10:57 | Emergency (ER) | payer OTHER, SELFPAY ==
--- NOTE | ~2023-04-09 | CT_ITS ---
EXAMINATION: CT HEAD WITHOUT CONTRAST CLINICAL INFORMATION: Fall. On Coumadin. COMPARISON: 08/29/2021. TECHNIQUE: Contiguous axial imaging was performed from the skull base to vertex without intravenous administration of contrast. This CT examination was performed using dose optimization techniques as appropriate, variously including the following: *Automated exposure control *Adjustment of mA and/or kV according to patient size (this includes techniques or standardized protocols for targeted exams where dose is matched to indication/reason for exam; i.e. extremities or head) *Use of iterative reconstruction technique DLP: 719 mGy-cm FINDINGS: The lateral, third and fourth ventricles are normally outlined. The cortical sulci and basal cisterns are normally outlined as well. There is no acute territorial defect, hemorrhage or midline shift. The extra-axial spaces are unremarkable. Calvarium: Intact. Maxillofacial sinuses and mastoids: Clear as visualized. CT/CT head/brain wo IV con IMPRESSION: No acute intracranial pathology.
--- NOTE | ~2023-04-09 | XR_ITS ---
Examination: Bilateral foot and bilateral ankle. CLINICAL INDICATION: Fall. Pain. COMPARISON: Left foot and left ankle 06/19/2011. TECHNIQUE: 3 views each foot and 2 views each ankle. FINDINGS: Left foot: There is a small calcaneal heel and retrocalcaneal enthesophytes. There is a tiny screw along the distal fifth metatarsal from previous intervention. No acute fracture or dislocation seen. The ankle mortise and subtalar joints are normal. Left ankle: The ankle mortise and subtalar joints are normal. No fracture or dislocation seen. No soft tissue swelling visualized. Small calcaneal heel spur is seen. Right ankle: The ankle mortise and subtalar joints are normal. No visible acute fracture or dislocation seen. There is a moderate-sized retrocalcaneal and a tiny calcaneal heel enthesophytes. Right foot: The distal foot joints are maintained. No bony erosive changes, loose bodies or periosteal thickening. No fracture or dislocation. The soft tissues are normal. XR/XR foot LT 2V IMPRESSION: No acute fracture or dislocation either ankle or foot. Small calcaneal heel and retrocalcaneal enthesophytes bilaterally. No abnormal joint effusion seen either.
--- NOTE | ~2023-04-09 | XR_ITS ---
Examination: Bilateral foot and bilateral ankle. CLINICAL INDICATION: Fall. Pain. COMPARISON: Left foot and left ankle 06/19/2011. TECHNIQUE: 3 views each foot and 2 views each ankle. FINDINGS: Left foot: There is a small calcaneal heel and retrocalcaneal enthesophytes. There is a tiny screw along the distal fifth metatarsal from previous intervention. No acute fracture or dislocation seen. The ankle mortise and subtalar joints are normal. Left ankle: The ankle mortise and subtalar joints are normal. No fracture or dislocation seen. No soft tissue swelling visualized. Small calcaneal heel spur is seen. Right ankle: The ankle mortise and subtalar joints are normal. No visible acute fracture or dislocation seen. There is a moderate-sized retrocalcaneal and a tiny calcaneal heel enthesophytes. Right foot: The distal foot joints are maintained. No bony erosive changes, loose bodies or periosteal thickening. No fracture or dislocation. The soft tissues are normal. XR/XR foot RT 2V IMPRESSION: No acute fracture or dislocation either ankle or foot. Small calcaneal heel and retrocalcaneal enthesophytes bilaterally. No abnormal joint effusion seen either.
--- NOTE | ~2023-04-09 | XR_ITS ---
EXAMINATION: XR KNEE, LEFT CLINICAL INFORMATION: Mechanical fall, knee pain. COMPARISON: Left knee 09/08/2022. TECHNIQUE: Two views of the left knee. FINDINGS: Trace suprapatellar joint effusion is unchanged. Mild degenerative changes in the medial and patellofemoral compartments No discrete fracture. XR/XR knee LT 2V IMPRESSION: No fracture. Mild degenerative changes and trace joint effusion appear stable.
--- NOTE | ~2023-04-09 | XR_ITS ---
Examination: Bilateral foot and bilateral ankle. CLINICAL INDICATION: Fall. Pain. COMPARISON: Left foot and left ankle 06/19/2011. TECHNIQUE: 3 views each foot and 2 views each ankle. FINDINGS: Left foot: There is a small calcaneal heel and retrocalcaneal enthesophytes. There is a tiny screw along the distal fifth metatarsal from previous intervention. No acute fracture or dislocation seen. The ankle mortise and subtalar joints are normal. Left ankle: The ankle mortise and subtalar joints are normal. No fracture or dislocation seen. No soft tissue swelling visualized. Small calcaneal heel spur is seen. Right ankle: The ankle mortise and subtalar joints are normal. No visible acute fracture or dislocation seen. There is a moderate-sized retrocalcaneal and a tiny calcaneal heel enthesophytes. Right foot: The distal foot joints are maintained. No bony erosive changes, loose bodies or periosteal thickening. No fracture or dislocation. The soft tissues are normal. XR/XR ankle LT min 3V IMPRESSION: No acute fracture or dislocation either ankle or foot. Small calcaneal heel and retrocalcaneal enthesophytes bilaterally. No abnormal joint effusion seen either.
--- NOTE | ~2023-04-09 | XR_ITS ---
Examination: Bilateral foot and bilateral ankle. CLINICAL INDICATION: Fall. Pain. COMPARISON: Left foot and left ankle 06/19/2011. TECHNIQUE: 3 views each foot and 2 views each ankle. FINDINGS: Left foot: There is a small calcaneal heel and retrocalcaneal enthesophytes. There is a tiny screw along the distal fifth metatarsal from previous intervention. No acute fracture or dislocation seen. The ankle mortise and subtalar joints are normal. Left ankle: The ankle mortise and subtalar joints are normal. No fracture or dislocation seen. No soft tissue swelling visualized. Small calcaneal heel spur is seen. Right ankle: The ankle mortise and subtalar joints are normal. No visible acute fracture or dislocation seen. There is a moderate-sized retrocalcaneal and a tiny calcaneal heel enthesophytes. Right foot: The distal foot joints are maintained. No bony erosive changes, loose bodies or periosteal thickening. No fracture or dislocation. The soft tissues are normal. XR/XR ankle RT min 3V IMPRESSION: No acute fracture or dislocation either ankle or foot. Small calcaneal heel and retrocalcaneal enthesophytes bilaterally. No abnormal joint effusion seen either.
--- NOTE | 2023-04-09 11:45 | ED_ITS ---
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 Patient thinks he rolled his ankles but noticed they were becoming bruised and swollen and notes I'm not sure what happened, my legs just gave out. Patient cannot ambulate secondary to bilateral ankle pain. Patient denies dizziness/lightheadedness preceding the fall. Denies head strike or LOC. Patient denies fever, chills, chest pain, SOB, numbness/tingling. He reports this has not happened in the past. MD complaint: left knee and ankle pain, right ankle pain s/p fall Onset (ago): hour(s) Location: lower extremity (bilateral ankles and left knee) Radiation: non-radiation Severity: moderate Severity scale (1-10): 8 Quality: sharp and constant Pain Consistency: constant Relieving factors: rest Exacerbating factors: movement Associated symptoms: denies other symptoms Treatments prior to arrival: none Related Data Home Medications Medication Instructions Recorded Confirmed cholecalciferol (vitamin D3) 25 25 mcg PO DAILY 01/31/22 mcg (1,000 unit) tablet fluoxetine 40 mg capsule 40 mg PO DAILY 01/31/22 melatonin 5 mg tablet 5 mg PO BEDTIME 01/31/22 warfarin 5 mg tablet 5 mg PO DAILY 01/31/22 Previous Rx's Medication Instructions Recorded hydrocortisone 2.5 % topical cream 1 appl topical BID 1 week #28 grams 01/29/22 hydroxyzine HCl 25 mg tablet 25 mg PO BID PRN itching #14 tabs 01/31/22 prednisone 20 mg tablet 40 mg (2 x 20 mg) PO DAILY 5 days 01/31/22 #10 tabs bacitracin 500 unit/gram topical 1 appl topical Q8H #14 grams 06/18/22 ointment oxycodone-acetaminophen 5 mg-325 1 tab PO Q6H PRN severe pain 09/08/22 mg tablet (Percocet) (scale score 7-10) #14 tabs oxycodone 10 mg tablet 10 mg PO Q8H PRN severe pain 04/09/23 (scale score 7-10) #7 tabs Allergies Allergy/AdvReac Type Severity Reaction Status Date / Time No Known Allergies Allergy Verified 09/08/22 19:52 Review of Systems Review of Systems: Constitutional: No Fever, No Chills ENT/Mouth: No sore throat, No Rhinorrhea, No Swallowing Difficulty Eyes: No Eye Pain, No Swelling, No Redness Cardiovascular: No Chest Pain, No SOB, No Orthopnea, No Edema Respiratory: No Cough, No Sputum, No Wheezing, No dyspnea Gastrointestinal: No Nausea, No Vomiting, No Diarrhea, No abdominal Pain, No Hematochezia, No Melena Genitourinary: No Dysuria, No Urinary Frequency, No Hematuria Musculoskeletal: No Myalgias. +left knee swelling and pain w movement. +bilateral ankle swelling, bruising, and pain with movement. Cannot ambulate secondary to pain. Skin: No Skin Lesions, No rash. Bruising on bilateral ankles. Neuro: No Weakness, No Numbness, No Dizziness, No Headache Psych: No Anxiety/Panic, No Depression Heme/Lymph: +Bruising on bilateral ankles, No Lymphadenopathy Endocrine: No Polyuria, No Polydipsia PMFSH Past Medical History Medical History Depression DVT (deep venous thrombosis) Social History Social History Alcohol intake: never Patient Tobacco Use Status: Never used Tobacco Advance Directives: No Advance Directives Information Provided: No Physical Exam ED Vital Signs: Vital Signs - 24 hr 04/09/23 11:47 Temperature 98.6 F Pulse Rate 68 Respiratory Rate 20 Blood Pressure 138/66 Pulse Oximetry 98 Oxygen Delivery Method Room Air BMI result Body Mass Index 34.7 Appearance: Alert. Oriented X3. No acute distress. Head: normocephalic, atraumatic. Eyes: Pupils equal, round and reactive to light. ENT: Pharynx normal. No tonsillar swelling or exudate. Neck: Normal inspection. Neck supple. CVS: Normal heart rate and rhythm. Pulses normal. Respiratory: No respiratory distress. Breath sounds normal. Abdomen: Soft and nontender. +BS x4 Skin: Skin warm and dry. Normal skin color. Normal skin turgor. No rashes. Extremities: No lower extremity edema. +posterior knee tender to palpation on the left, limited ROM secondary to pain. Mild L knee swelling compared to the right. +swelling and bruising of the lateral aspect of bilateral feet. Bilateral ankle ROM decreased secondary to pain. tender lateral malleoli bilaterally. LE sensation intact. Pedal pulses present. Neuro/psych: Oriented X 3. No motor deficit. No sensory deficit. CN II-XII intact. Normal speech and cognition. gait not tested due to pain Course Course Course Narrative: This is an RME: Additional HPI, ROS, PE not included below will be deferred to primary provider. 53-year-old male presenting for bilateral ankle pain and left knee pain after a mechanical fall this morning. States knees gave out and both ankles rolled. Denies dizziness, syncope, and head strike. 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 Vitals stable. INR checked 2 weeks ago and it was within normal range. Head CT was unremarkable as well and xrays of the left knee, bilateral ankles and feet were all unremarkable for acute findings. Based on the unremarkable xrays and head CT, patient is consistent with a bilateral ankle sprain and left knee sprain. Patient was instructed to limit weight bearing with use of crutches. Patient was encouraged to use inez wraps and tylenol for pain as needed. He additionally will be discharged with oxycodone 10mg x7tabs. Patient was instructed to return to the ED in the case of symptom persistence or worsening. Differential Diagnosis Differential Diagnoses: The differential diagnosis associated with the prese ntation includes Bilateral ankle sprain, left knee sprain. Less likely bilateral ankle fracture or ligament tear, left knee fracture or ligament tear. Admission/Observation Consideration of admission/observation: Escalation of care including admission/observation considered fall on coumadin, considered obs vs admit Independent Interpretation I performed an independent interpretation of an: Plain X-Ray and CT Scan Interpretation: CT head without acute bleed or edema Xrays of the ankles, feet and knee reviewed - no acute fracture appreciated, agree w/ radiology read Radiology Impression Discussion of test interpretation with radiology: I have reviewed the radiologist's reading. Radiologist Impression: CT/CT head/brain wo IV con IMPRESSION: No acute intracranial pathology. XR/XR foot LT 2V IMPRESSION: No acute fracture or dislocation either ankle or foot. Small calcaneal heel and retrocalcaneal enthesophytes bilaterally. No abnormal joint effusion seen either. XR/XR knee LT 2V IMPRESSION: No fracture. Mild degenerative changes and trace joint effusion appear stable. External Record Review External record reviewed: Prior outpatient labs Prescription Management I considered prescription management with: Pain Medication Chronic Conditions Patient?s care impacted by: Other (DVT's on Coumadin) Critical Care Time Critical Care Time Critical Care Time: No Discharge Plan Discharge Clinical Impression: Ankle sprain Qualifiers: Encounter type: initial encounter Involved ligament of ankle: unspecified ligament Laterality: unspecified laterality Qualified Code(s): S93.409A - Sprain of unspecified ligament of unspecified ankle, initial encounter Left knee sprain Qualifiers: Encounter type: initial encounter Involved ligament of knee: unspecified ligament Qualified Code(s): S83.92XA - Sprain of unspecified site of left knee, initial encounter Patient Disposition: Home, Self-Care Instructions: Ankle Sprain (DC), Knee Sprain (ED) Additional Instructions: Your x-rays today did not show any traumatic injuries. Your CT head was normal. Rest your ankle/knee and elevate your foot when possible. Recommend INEZ wrap for support and compression. Use ice several times per day for the next 48 hours. You may bear weight as tolerated. If pain is too severe, use crutches until better. Take Tylenol 975 mg around the clock (every 6-8 hours) as needed for pain. Follow up with your doctor as needed. If pain persists, recommend following up with Orthopedics - name and number below Prescriptions: New oxycodone 10 mg tablet 10 mg PO Q8H PRN (Reason: severe pain (scale score 7-10)) Qty: 7 0RF Rx Instructions: Partial Fill upon patient request. No Action hydrocortisone 2.5 % cream 1 appl topical BID 7 Days Qty: 28 0RF bacitracin 500 unit/gram ointment 1 appl topical Q8H Qty: 14 0RF oxycodone-acetaminophen [Percocet] 5-325 mg tablet 1 tab PO Q6H PRN (Reason: severe pain (scale score 7-10)) Qty: 14 0RF Rx Instructions: Partial Fill upon patient request. warfarin 5 mg tablet 5 mg PO DAILY cholecalciferol (vitamin D3) 25 mcg (1,000 unit) tablet 25 mcg PO DAILY fluoxetine 40 mg capsule 40 mg PO DAILY melatonin 5 mg tablet 5 mg PO BEDTIME prednisone 20 mg tablet 40 mg PO DAILY 5 Days Qty: 10 0RF hydroxyzine HCl 25 mg tablet 25 mg PO BID PRN (Reason: itching) Qty: 14 0RF Referrals: [facility] [place] Orthopedic Surgeons [Provider Group] Luis Fernando Sinha MD [Primary Care Provider] - Stand Alone Forms: Work/School Release Interventions: ED Discharge Assessment Last Done: 04/09/23 16:47 Discharge Date/Time: 04/09/23 16:47
[2023-04-09 11:47] VITALS: BP 138/66; PULSE 68; RESP 20; TEMP 37; O2SAT 98; BMI 34.7
--- NOTE | 2023-04-09 13:15 | ED_ITS ---
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 Patient thinks he rolled his ankles but noticed they were becoming bruised and swollen. Patient cannot ambulate secondary to bilateral ankle pain. Patient denies dizziness/lightheadedness preceding the fall. Denies head strike or LOC. Patient denies fever, chills, chest pain, SOB, numbness/tingling. Related Data Home Medications Medication Instructions Recorded Confirmed cholecalciferol (vitamin D3) 25 25 mcg PO DAILY 01/31/22 mcg (1,000 unit) tablet fluoxetine 40 mg capsule 40 mg PO DAILY 01/31/22 melatonin 5 mg tablet 5 mg PO BEDTIME 01/31/22 warfarin 5 mg tablet 5 mg PO DAILY 01/31/22 Previous Rx's Medication Instructions Recorded hydrocortisone 2.5 % topical cream 1 appl topical BID 1 week #28 grams 01/29/22 hydroxyzine HCl 25 mg tablet 25 mg PO BID PRN itching #14 tabs 01/31/22 prednisone 20 mg tablet 40 mg (2 x 20 mg) PO DAILY 5 days 01/31/22 #10 tabs bacitracin 500 unit/gram topical 1 appl topical Q8H #14 grams 06/18/22 ointment oxycodone-acetaminophen 5 mg-325 1 tab PO Q6H PRN severe pain 09/08/22 mg tablet (Percocet) (scale score 7-10) #14 tabs Allergies Allergy/AdvReac Type Severity Reaction Status Date / Time No Known Allergies Allergy Verified 09/08/22 19:52 [facility] Past Medical History Medical History Depression DVT (deep venous thrombosis) Social History Social History Alcohol intake: never Patient Tobacco Use Status: Never used Tobacco Advance Directives: No Advance Directives Information Provided: No Physical Exam Vital Signs: Vital Signs: Last Vital Signs Temp 98.6 F 04/09/23 11:47 Pulse 68 04/09/23 11:47 Resp 20 04/09/23 11:47 BP 138/66 04/09/23 11:47 Pulse Ox 98 04/09/23 11:47 O2 Del Method Room Air 04/09/23 11:47 BMI result Body Mass Index 34.7 Discharge Plan Discharge Prescriptions: No Action hydrocortisone 2.5 % cream 1 appl topical BID 7 Days Qty: 28 0RF bacitracin 500 unit/gram ointment 1 appl topical Q8H Qty: 14 0RF oxycodone-acetaminophen [Percocet] 5-325 mg tablet 1 tab PO Q6H PRN (Reason: severe pain (scale score 7-10)) Qty: 14 0RF Rx Instructions: Partial Fill upon patient request. warfarin 5 mg tablet 5 mg PO DAILY cholecalciferol (vitamin D3) 25 mcg (1,000 unit) tablet 25 mcg PO DAILY fluoxetine 40 mg capsule 40 mg PO DAILY melatonin 5 mg tablet 5 mg PO BEDTIME prednisone 20 mg tablet 40 mg PO DAILY 5 Days Qty: 10 0RF hydroxyzine HCl 25 mg tablet 25 mg PO BID PRN (Reason: itching) Qty: 14 0RF
== END 2023-04-09 16:47 | disposition home or self-care (01) ==
PROVIDERS: Emergency Provider Emergency Medicine Emergency Medical Services; PCP Internal Medicine
DX: S93.401A Sprain of unspecified ligament of right ankle, initial encounter (principal); S93.402A Sprain of unspecified ligament of left ankle, initial encounter; S83.92XA Sprain of unspecified site of left knee, initial encounter; W18.30XA Fall on same level, unspecified, initial encounter; Z86.718 Personal history of other venous thrombosis and embolism; Z79.01 Long term (current) use of anticoagulants; Z79.899 Other long term (current) drug therapy; Y93.89 Activity, other specified; Y92.9 Unspecified place or not applicable; Y99.9 Unspecified external cause status
CPT/HCPCS: 70450; 73560; 73610; 73620; 99282; 99284

== ENCOUNTER 2023-04-09 23:27 | Observation (INO) | payer OTHER, SELFPAY ==
[2023-04-09 23:36] VITALS: BP 105/64; PULSE 64; O2SAT 95
--- NOTE | 2023-04-09 23:59 | ECG_ITS ---
Test Reason : SYNOCOPE Blood Pressure : / mmHG Vent. Rate : 056 BPM Atrial Rate : 056 BPM P-R Int : 176 ms QRS Dur : 096 ms QT Int : 476 ms P-R-T Axes : 022 -04 003 degrees QTc Int : 459 ms Sinus bradycardia Otherwise normal ECG When compared with ECG of 29-AUG-2021 16:29, No significant change was found Referred By: Ellie Caldera Electronically Signed By:SHAVON JACOBSON MD
[2023-04-10] VITALS (10 sets, daily range): BP systolic 94–127; BP diastolic 51–70; PULSE 54–66; RESP 16–20; TEMP 36.2–36.9; O2SAT 96–97; BMI 37.8; BMI 36.9
--- NOTE | 2023-04-10 00:01 | ED_ITS ---
HPI - Syncope General Chief Complaint: Extremity Injury, Lower Stated Complaint: Weakness Time Seen by Provider: 04/09/23 23:45 Source: patient, family, EMS and old records reviewed Mode of arrival: EMS Limitations: no limitations History of Present Illness HPI narrative: 53 yo male with PMH of depression, unprovoked DVT on coumadin here with c/o seen earlier today when he was walking he did have a sense he was going to pass out nausea and lightheaded then woke up with injured R leg - at that time came here xrays showed sprain and CT head done no ICH. Tonight went home took oxycodone 10mg for pain, smoked THC went to urinate and had sweats, dizziness and woke up slumped over - no headache no head trauma reported he is sleepy now. MD complaint: loss of consciousness Onset (ago): minute(s) (prior to arrival ) -: second(s) Prodromal symptoms: lightheaded, diaphoresis and nausea/vomiting Witnessed: No Context: after urination Injuries sustained associated with event: none Current symptoms: weakness History: previous syncopal episode (hx of fainting when he doesn't feel good) Treatments prior to arrival: IV fluids Related Data Home Medications Medication Instructions Recorded Confirmed cholecalciferol (vitamin D3) 25 25 mcg PO DAILY 01/31/22 mcg (1,000 unit) tablet fluoxetine 40 mg capsule 40 mg PO DAILY 01/31/22 melatonin 5 mg tablet 5 mg PO BEDTIME 01/31/22 warfarin 5 mg tablet 5 mg PO DAILY 01/31/22 Previous Rx's Medication Instructions Recorded hydrocortisone 2.5 % topical cream 1 appl topical BID 1 week #28 grams 01/29/22 hydroxyzine HCl 25 mg tablet 25 mg PO BID PRN itching #14 tabs 01/31/22 prednisone 20 mg tablet 40 mg (2 x 20 mg) PO DAILY 5 days 01/31/22 #10 tabs bacitracin 500 unit/gram topical 1 appl topical Q8H #14 grams 06/18/22 ointment oxycodone-acetaminophen 5 mg-325 1 tab PO Q6H PRN severe pain 09/08/22 mg tablet (Percocet) (scale score 7-10) #14 tabs oxycodone 10 mg tablet 10 mg PO Q8H PRN severe pain 10/17/23 (scale score 7-10) #7 tabs Allergies Allergy/AdvReac Type Severity Reaction Status Date / Time No Known Allergies Allergy Verified 09/08/22 19:52 Review of Systems 2 Review of Systems: Constitutional : No Fever, No Chills, No Fatigue ENT/Mouth : No sore throat, No Rhinorrhea Eyes: No Eye Pain, No Swelling, No Redness Cardiovascular : No Chest Pain, No SOB, No Dyspnea on Exertion Respiratory : No Cough, No Sputum Gastrointestinal : No Nausea, No Vomiting, No Diarrhea, No abdominal Pain Genitourinary : No Dysuria, No Urinary Frequency, No Hematuria, Musculoskeletal : No joint pain, No Myalgias, No Joint Swelling Skin : No Skin Lesions, No rash Neuro : No Weakness, No Numbness, pos Dizziness, no Headache Psych : No Anxiety/Panic, No Depression Heme/Lymph: No Bruising, No Bleeding,No Lymphadenopathy Endocrine : No Polyuria, No Polydipsia All other systems reviewed and are negative [facility] Past Medical History Attestation statement: The following information was validated with the patient. Source: old records reviewed Medical History Depression DVT (deep venous thrombosis) Social History Social History Alcohol intake: current Alcohol intake frequency: holidays/special occasions only Patient Tobacco Use Status: Never used Tobacco Smoked in Last 30 Days: No Substance Use Type: Marijuana Substance Use Frequency: Daily Advance Directives: No Advance Directives Information Provided: No Physical Exam 2 Vital Signs: Vital Signs: Last Vital Signs Temp 98.4 F 04/10/23 00:22 Pulse 59 04/10/23 00:26 Resp 17 04/10/23 00:22 BP 94/51 L 04/10/23 00:26 Pulse Ox 97 04/10/23 00:22 O2 Del Method Room Air 04/10/23 00:22 BMI result Body Mass Index 37.8 Appearance: Alert. Oriented X3. No acute distress. Eyes: Pupils equal, round and reactive to light. ENT: Pharynx normal. atraumatic Neck: Normal inspection. Neck supple. CVS: Normal heart rate and rhythm. Pulses normal. Respiratory: No respiratory distress. Breath sounds normal. Abdomen: Soft and nontender. Skin: Skin warm and dry. Normal skin color. Normal skin turgor. Extremities: No lower extremity edema. No calf ttp L leg ankle and knee wrapped Neuro: Oriented X 3. No motor deficit. No sensory deficit. Course Course Course Narrative: possibly orthostatic BP 100+ laying thwn down to 94 sitting he cannot stand due to left leg injury I did order 3L of IVF any time we stand him he becomes weak and feels he is going to fall over at this time I do not feel safe sending him home 2nd possible syncope today and he is anticoagulated. Medications Administered Discontinued Medications Generic Name Dose Route Start Last Admin Trade Name Jonas PRN Reason Stop Dose Admin Acetaminophen 650 mg 04/10/23 02:32 04/10/23 04:05 Acetaminophen 325 Mg Tablet PO 04/10/23 02:33 650 mg ONCE ONE Administration Sodium Chloride 1,000 mls @ 999 mls/hr 04/09/23 23:45 04/10/23 00:17 Ns IVCONT 04/10/23 00:45 999 mls/hr .Q1H1M RAUL Administration Sodium Chloride 1,000 mls @ 999 mls/hr 04/10/23 02:45 04/10/23 03:42 Ns IV 04/10/23 03:45 999 mls/hr .Q1H1M RAUL Administration Medical Decision Making Medical Decision Making [facility] Narrative: 53 yo male with PMH of DVT on coumadin here with 2nd visit today suspect 2 syncopal events tonights event was after a dose of oxycodone, THC and urinating did have a prodrome he has no signs of head trauma or headache - he had event earlier today with negative head CT where he just woke up and was on the groun - he is not having CP/SOB preceding episodes. At this time will obtain labs, EKG, hydrated, ortho VS and observe in ED. He does have hx of syncopal events in the past but has not felt this weak with them. Differential Diagnosis Differential Diagnoses: The differential diagnosis associated with the presentation includes syncope, orthostatic hypotension Admission/Observation Consideration of admission/observation: Escalation of care including admission/observation considered after observation x 5 hours, 3L of IVF still weak and does not feel he can stand will admit Consult Healthcare Provider Management of the patient was discussed with: Hospitalist (agrees to admit) Lab Data [facility] Lab Attestation statement: I reviewed the patient's lab results. 04/10/23 00:37 04/10/23 00:37 Labs: Lab Results 04/10/23 04/10/23 Range/Units 00:37 01:33 WBC 10.3 (4.8-10.8) X10*3/uL RBC 4.68 (4.60-5.80) X10*6/uL Hgb 13.9 L (14.0-18.0) g/dl Hct 42.5 (42.0-52.0) % MCV 90.8 (80.0-98.0) fL MCH 29.7 (27.0-33.0) pg MCHC 32.7 (31.0-36.0) g/dl RDW 13.8 (11.0-16.0) % Plt Count 189 (160-400) X10*3/uL MPV 10.4 (9.4-12.4) fL Immature Gran % (Auto) 1.1 H (0.0-0.4) % Neut % (Auto) 69.5 (45-73) % Lymph % (Auto) 12.6 L (20-40) % [place] % (Auto) 7.4 (2-11) % Eos % (Auto) 8.9 H (0-4) % Baso % (Auto) 0.5 (0-2) % Lymph # (Auto) 1.3 (1.2-4.9) X10*3/uL [place] # (Auto) 0.8 (0.1-1.2) X10*3/uL Eos # (Auto) 0.9 H (0.0-0.4) X10*3/uL Baso # (Auto) 0.1 (0.0-0.2) X10*3/uL Abs Immat Gran (auto) 0.11 H (0.00-0.03) X10*3/uL Absolute Neuts (auto) 7.2 (2.0-8.3) x10*3/uL Absolute Nucleated RBC 0.000 (0.0-0.012) X10*3/uL Nucleated RBC % (auto) 0.0 (0.0-0.2) /100WBC PT 29.6 H (11.1-13.3) SEC INR 2.4 H (0.9-1.1) Sodium 138 (135-145) mmol/L Potassium 4.1 (3.3-5.1) mmol/L Chloride 106 (96-108) mmol/L Carbon Dioxide 25 (22-29) mmol/L Anion Gap 11 L (12-20) BUN 15 (9-16) mg/dL Creatinine 0.97 (0.5-1.4) mg/dL Estim Creat Clear Calc 126.4 Estimated GFR > 60 Random Glucose 115 (60-115) mg/dL Calcium 8.4 D (8.4-10.2) mg/dL Magnesium 2.1 (1.6-2.6) mg/dL Total Bilirubin 0.7 (0.0-1.0) mg/dL Direct Bilirubin 0.2 (0.0-0.5) mg/dL AST 14 (5-37) U/L ALT 10 (0-40) U/L Alkaline Phosphatase 68 (39-117) U/L Troponin I High Sens < 2.7 (<3.5-35.0) ng/L Total Protein 6.3 L (6.5-8.0) g/dL Albumin 3.7 (3.5-5.0) g/dL Lipase 29 (8-78) U/L Urine Color Dark Yellow Urine Appearance Clear Urine pH 5.5 (5.0-9.0) Ur Specific [place] 1.025 (1.005-1.025) Urine Protein Trace (Neg-Trace) mg/dL Urine Glucose (UA) 250 H (Negative) mg/dL Urine Ketones Trace (Negative) mg/dL Urine Blood Negative (Negative) Urine Nitrite Negative (Negative) Ur Leukocyte Esterase Negative (Negative) Urine Opiates Screen Not Detected (Not Detect) Urine Fentanyl Screen Not Detected (Not Detect) Ur Barbiturates Screen Not Detected (Not Detect) Ur Phencyclidine Scrn Not Detected (Not Detect) Ur Amphetamines Screen Not Detected (Not Detect) U Benzodiazepines Scrn Not Detected (Not Detect) Urine Cocaine Screen Not Detected (Not Detect) U Marijuana (THC) Screen POSITIVE H (Not Detect) Ethyl Alcohol < 10 mg/dL COVID-19 ([place]) Negative (Negative) COVID-19 Clin Com See Note Independent Interpretation I performed an independent interpretation of an: EKG Interpretation: Rate: 56 Rhythm: sinus bradycardia [place]: normal Normal P waves. Normal MARCELA. Normal QRS complex. ST T wave : normal no BOSSMAN, inverted t wave III qTC: normal prior studies: no acute ischemia The study has been interpreted contemporaneously by me. . Independent Historian Clinical information obtained from an independent historian. History obtained from or confirmed by: Spouse External Record Review External record reviewed: Inpatient record Discharge Plan Discharge Clinical Impression: Orthostatic hypotension Syncope Qualifiers: Syncope type: unspecified Qualified Code(s): R55 - Syncope and collapse Patient Disposition: Admitted As Inpatient Prescriptions: No Action hydrocortisone 2.5 % cream 1 appl topical BID 7 Days Qty: 28 0RF bacitracin 500 unit/gram ointment 1 appl topical Q8H Qty: 14 0RF oxycodone-acetaminophen [Percocet] 5-325 mg tablet 1 tab PO Q6H PRN (Reason: severe pain (scale score 7-10)) Qty: 14 0RF Rx Instructions: Partial Fill upon patient request. oxycodone 10 mg tablet 10 mg PO Q8H PRN (Reason: severe pain (scale score 7-10)) Qty: 7 0RF Rx Instructions: Partial Fill upon patient request. warfarin 5 mg tablet 5 mg PO DAILY cholecalciferol (vitamin D3) 25 mcg (1,000 unit) tablet 25 mcg PO DAILY fluoxetine 40 mg capsule 40 mg PO DAILY melatonin 5 mg tablet 5 mg PO BEDTIME prednisone 20 mg tablet 40 mg PO DAILY 5 Days Qty: 10 0RF hydroxyzine HCl 25 mg tablet 25 mg PO BID PRN (Reason: itching) Qty: 14 0RF
[2023-04-10] MEDS: 0.9 % Sodium Chloride 1,000 ML 999 ML IVCONT (00:17)
[2023-04-10 00:41] LABS: MANUAL DIFF FLAG NO
[2023-04-10 00:46] LABS: Basophils Absolute Auto 0.1 X10*3/uL (0.0-0.2); Basophils Percent Auto 0.5 % (0-2); Eosinophils Absolute Auto 0.9 X10*3/uL (0.0-0.4); Eosinophils Percent Auto 8.9 % (0-4); Hematocrit 42.5 % (42.0-52.0); Hemoglobin 13.9 g/dl (14.0-18.0); Imm Gran Abs Auto 0.11 X10*3/uL (0.00-0.03); Imm Gran Pct Auto 1.1 % (0.0-0.4); Lymphocytes Absolute Auto 1.3 X10*3/uL (1.2-4.9); Lymphocytes Percent Auto 12.6 % (20-40); Mean Corpuscular HGB Conc 32.7 g/dl (31.0-36.0); Mean Corpuscular Hemoglobin 29.7 pg (27.0-33.0); Mean Corpuscular Volume 90.8 fL (80.0-98.0); Mean Platelet Volume 10.4 fL (9.4-12.4); Monocytes Absolute Auto 0.8 X10*3/uL (0.1-1.2); Monocytes Percent Auto 7.4 % (2-11); Neutrophils Absolute Auto 7.2 x10*3/uL (2.0-8.3); Neutrophils Percent Auto 69.5 % (45-73); Platelet Count 189 X10*3/uL (160-400); Red Blood Count 4.68 X10*6/uL (4.60-5.80); Red Cell Distribution Width 13.8 % (11.0-16.0); White Blood Count 10.3 X10*3/uL (4.8-10.8)
[2023-04-10 00:48] LABS: INTERNATIONAL NORM RATIO 2.4 (0.9-1.1); Prothrombin Time 29.6 SEC (11.1-13.3)
[2023-04-10 00:56] LABS: COVID-19 Test Negative (Negative); IDNOW Serial# 6674DD1D
[2023-04-10 00:59] LABS: Alanine Aminotransferase 10 U/L (0-40); Albumin Level 3.7 g/dL (3.5-5.0); Alkaline Phosphatase 68 U/L (39-117); Anion Gap 11 (12-20); Aspartate Amino Transferase 14 U/L (5-37); Bilirubin Direct 0.2 mg/dL (0.0-0.5); Bilirubin Total 0.7 mg/dL (0.0-1.0); Blood Urea Nitrogen 15 mg/dL (9-16); Calcium 8.4 mg/dL (8.4-10.2); Carbon Dioxide 25 mmol/L (22-29); Chloride 106 mmol/L (96-108); Creatinine Clr Calc Pharmacy 126.4; Estimated Glomerular Filt Rate > 60; Glucose Random 115 mg/dL (60-115); Lipase 29 U/L (8-78); Magnesium 2.1 mg/dL (1.6-2.6); Potassium 4.1 mmol/L (3.3-5.1); Sodium 138 mmol/L (135-145); Total Protein 6.3 g/dL (6.5-8.0)
[2023-04-10 01:01] LABS: Ethanol < 10 mg/dL
[2023-04-10 01:06] LABS: Troponin-I High Sensitivity < 2.7 ng/L (<3.5-35.0)
[2023-04-10 01:40] LABS: Appearance Urine Clear; Color Urine Dark Yellow; Glucose Urine UA 250 mg/dL (Negative); Leukocyte Esterase Urine Negative (Negative); Nitrite Urine Negative (Negative); PH 5.5 (5.0-9.0); Specific Gravity - Urine 1.025 (1.005-1.025); Urine Blood Negative (Negative); Urine Ketones Trace mg/dL (Negative); Urine Protein Trace mg/dL (Neg-Trace)
[2023-04-10 01:45] LABS: Amphetamine Screen Urine Not Detected (Not Detect); Barbiturates, Urine Not Detected (Not Detect); Benzodiazepines Screen Urine Not Detected (Not Detect); Cannabinoid Screen Urine POSITIVE (Not Detect); Cocaine Screen Urine Not Detected (Not Detect); Fentanyl, urine Not Detected (Not Detect); Opiate Screen Urine Not Detected (Not Detect); Phencyclidine Screen Urine Not Detected (Not Detect)
[2023-04-10] MEDS: 0.9 % Sodium Chloride 1,000 ML 999 ML IV (03:42)
[2023-04-10] MEDS: Acetaminophen 325 MG TABLET 650 MG PO (04:05)
--- NOTE | 2023-04-10 05:22 | PM.IMHP ---
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 Patient was seen in the ER for a fall, unclear etiology and was sent home with oxycodone. Patient states he went home and smoked marijuana. While he was trying to get up, he felt dizzy/lightheaded and passed out. His saw him lying on the floor. Patient denies chest discomfort/palpitations prior to the fall. No jerking movement of extremities. No history of volume loss including diarrhea or vomiting. No fever, chills, chest discomfort, palpitations, shortness of breath, abdominal pain, changes in urinary or bowel habits. In the emergency department, orthostatic vital signs noted to be positive. Review of Systems Constitutional: Constitutional: Reports no additional constitutional complaints ENT: Reports dizziness Cardiovascular: Cardiovascular: Reports no additional cardiovascular complaints and Reports syncope Respiratory: Respiratory: Reports no additional respiratory complaints Neurologic: Reports dizziness and Reports syncope [facility] Medical History Depression DVT (deep venous thrombosis) Social History Alcohol intake: current Alcohol intake frequency: holidays/special occasions only Patient Tobacco Use Status: Never used Tobacco Smoked in Last 30 Days: No Substance Use Type: Marijuana Substance Use Frequency: Daily Advance Directives: No Advance Directives Information Provided: No Meds Allergies Allergy/AdvReac Type Severity Reaction Status Date / Time No Known Allergies Allergy Verified 09/08/22 19:52 Home Medications Medication Instructions Recorded Confirmed Last Taken Type cholecalciferol (vitamin D3) 25 25 mcg PO DAILY 01/31/22 Unknown History mcg (1,000 unit) tablet fluoxetine 40 mg capsule 40 mg PO DAILY 01/31/22 Unknown History melatonin 5 mg tablet 5 mg PO BEDTIME 01/31/22 Unknown History warfarin 5 mg tablet 5 mg PO DAILY 01/31/22 Unknown History Physical Exam Vital Signs and Narrative: Vital Signs: Last Vital Signs Temp 98.4 F 04/10/23 00:22 Pulse 59 04/10/23 00:26 Resp 17 04/10/23 00:22 BP 94/51 L 04/10/23 00:26 Pulse Ox 97 04/10/23 00:22 O2 Del Method Room Air 04/10/23 00:22 BMI result Body Mass Index 37.8 Middle-aged male lying in bed in no distress Neck supple, no JVD Regular rate and rhythm, S1-S2 heard Regular breath sounds bilaterally, no wheezing or crackles appreciated Abdomen soft nontender, no guarding, no rigidity Patient is awake, alert and oriented to self, place, time and person ; no focal motor deficit Psych: Normal mood No pedal edema Results Labs 04/10/23 00:37 04/10/23 00:37 Labs: Laboratory Results - last 24 hr 04/10/23 04/10/23 00:37 01:33 MCV 90.8 MCH 29.7 MCHC 32.7 RDW 13.8 Plt Count 189 MPV 10.4 Immature Gran % (Auto) 1.1 H Neut % (Auto) 69.5 Lymph % (Auto) 12.6 L [place] % (Auto) 7.4 Eos % (Auto) 8.9 H Baso % (Auto) 0.5 Lymph # (Auto) 1.3 [place] # (Auto) 0.8 Eos # (Auto) 0.9 H Baso # (Auto) 0.1 Abs Immat Gran (auto) 0.11 H Absolute Neuts (auto) 7.2 Absolute Nucleated RBC 0.000 Nucleated RBC % (auto) 0.0 PT 29.6 H INR 2.4 H Anion Gap 11 L Estim Creat Clear Calc 126.4 Estimated GFR > 60 Random Glucose 115 Calcium 8.4 D Magnesium 2.1 Total Bilirubin 0.7 Direct Bilirubin 0.2 AST 14 ALT 10 Alkaline Phosphatase 68 Total Protein 6.3 L Albumin 3.7 Lipase 29 Urine Color Dark Yellow Urine Appearance Clear Urine pH 5.5 Ur Specific [place] 1.025 Urine Protein Trace Urine Glucose (UA) 250 H Urine Ketones Trace Urine Blood Negative Urine Nitrite Negative Ur Leukocyte Esterase Negative Urine Opiates Screen Not Detected Urine Fentanyl Screen Not Detected Ur Barbiturates Screen Not Detected Ur Phencyclidine Scrn Not Detected Ur Amphetamines Screen Not Detected U Benzodiazepines Scrn Not Detected Urine Cocaine Screen Not Detected U Marijuana (THC) Screen POSITIVE H Ethyl Alcohol < 10 COVID-19 ([place]) Negative COVID-19 Clin Com See Note Assessment and Plan (1) Orthostatic hypotension: Status: Acute (2) Syncope: Qualifiers: Syncope type: unspecified Qualified Code(s): R55 - Syncope and collapse Status: Acute Plan This is a 53-year-old male with 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 #. Syncope, suspect orthostatic: Patient being resuscitated with IV crystalloids. Will admit patient with cardiac monitoring. Repeat orthostatics after crystalloid resuscitation #. DVT, unprovoked: On Coumadin #. Mood disorder: Continue home mood stabilizers Med rec pending DVT prophylaxis: Coumadin Time Spent With Patient Time: Total time managing care of this patient today ____ minutes. Quality Stroke Does the patient have a stroke diagnosis?: No VTE Prior VTE?: No VTE Risk Level:: Medical - moderate - high VTE Device Contraindication: Treatment Not Indicated VTE Drug Contraindication: N/A - Med Ordered
[2023-04-10] MEDS: Lactated Ringers 1,000 ML 100 ML IVCONT (05:49)
--- NOTE | 2023-04-10 07:00 | CA_ITS ---
Transthoracic Echocardiogram Patient (Last, First, Middle): Polo Escobar, Gender: Male Date of : 1970 Age: 53 Procedure Date: 04/10/2023 Procedure Type: Transthoracic Echocardiogram Location: [facility] – [place] Height: 187.96 cm Weight: 130.18 kg BSA: 2.53 m2 Heart Rate: bpm BP: 123 / 60 mmHg Choirmaster: Referring MD: Ghassan Greer MD Symptoms: syncope, vtach Study Quality: Adequate with contrast ECG Rhythm: Sinus Conclusions: - The left ventricular systolic function is normal. The calculated ejection fraction is 60% by biplane method. - No obvious valvular pathology seen on this study. Findings Procedure Information Contrast agent, definity, is being given per protocol without apparent complications. Left Ventricle Normal left ventricular cavity size. There is normal left ventricular wall thickness. The left ventricular systolic function is normal. The calculated ejection fraction is 60% by biplane method. There is no evidence of regional wall motion abnormalities. Diastolic function is normal for age. Right Ventricle Normal right ventricular cavity size and systolic function. Atria Both atria are normal in size. Aortic Valve There is a normal trileaflet aortic valve. There is no aortic valve stenosis. There is no aortic valve regurgitation. Mitral Valve The mitral valve appears normal. There is trace mitral valve regurgitation. There is no mitral valve stenosis. Pulmonic Valve The pulmonic valve is likely normal. Tricuspid Valve Normal tricuspid valve structure. There is trace tricuspid valve regurgitation. There is no evidence of pulmonary hypertension. Great Vessels The asc aorta is normal in size. Venous The inferior vena cava is normal in size and collapses less than 50% with inspiration. Pericardium/Pleural There is no evidence of pericardial effusion. Prior Study Comparison No significant change compared to prior study dated: 07/12/2017. Recommendations, Care & Conclusions No obvious valvular pathology seen on this study. Measurements 2D Linear Measurements IVSd: 0.90 0.6-0.9/0.6-1.0 cm LVIDd: 5.11 3.9-5.3/4.2-5.9 cm LVIDd Index: 2.02 2.4-3.2/2.2-3.1 cm/m2 LVIDs: 3.37 2.0-3.6 cm LVPWd: 0.94 0.7-1.1 cm LA Diam: 3.70 2.7-3.8/3.0-4.0 cm LAIDs Index: 1.46 1.5-2.3 cm/m2 LV Mass: 210.21 67-162/88-224 g LV Mass Index: 83.09 43-95/49-115 g/m2 LVOT Diam: 2.20 3.0+(-)1.3 cm 2D Systolic Function EF 4C: 66.60 >55% EF 2C: 50.60 >55% EF BiP: 59.70 >55% Mitral Valve MV Pk E: 0.87 MV PK A: 0.59 MV Decel Time: 202.00 E/A: 1.50 E'Lateral: 15.80 E'Medial: 7.62 E/E' Med: 11.40 E/E' Lat: 5.50 PHT: 59.00 MVA PHT: 3.73 Decel [place]: 4.32 Aortic Valve AoV Pk Hayden: 1.67 AoV Mn [place]: 1.12 AoV VTI: 0.36 AoV Pk Grad: 11.00 Aov Mn Grad: 6.00 CONRAD Cont.VTI: 3.00 LVOT LVOT Pk [place]den: 1.28 LVOT Mn [place]: 0.80 LVOT VTI: 0.29 LVOT Pk Grad: 7.00 LVOT Mn Grad: 3.00 LVOT Diam: 2.20 LVOT Area: 3.80 Diastolic Function MV Pk E: 0.87 MV Pk A: 0.59 E/A: 1.50 E'Medial: 7.62 E/E' Med: 11.40 E' Laterial: 15.80 E/E' Lat: 5.50 Right Ventricle TAPSE (mm): 34.10 Tricuspid Valve TR Pk Hayden: 1.71 TR Pk Grad: 12.00 RA Press: 8.00 Great Vessels Aorta Sinus of Valsalva: 3.00 2.0-3.5 cm Ao Asc: 2.90 2.1-3.4 cm Pulmonary Valve PV Pk Hayden: 1.21 Peak PV Grad: 6.00 Updated in Other Vendor System with Status of Final Aneesh Coreas MD electronically signed on 04/10/2023 4:02:18 PM with status of Final
--- NOTE | 2023-04-10 07:43 | PC.NURSE ---
bedside report given
--- NOTE | 2023-04-10 08:33 | MHC.CM.PN ---
CM met with Patient at bedside and addressed FARMER with him, providing Patient with the original and placing a copy on the chart. Patient lives in a mobile home with his and adult Daughter and he required no services nor DME [employer]E [employer]TER. Home/self care is the goal and CM has initiated and will follow for dc planning. PCP is Dr. Luis Fernando Sinha from [place].
--- NOTE | 2023-04-10 08:44 | PHA.MEDREC ---
Pharmacy Consult ? Medication Reconciliation Pharmacy has completed the medication reconciliation.spoke to pt and confirmed medications taken at home. he states he takes 0.25 mg risperidone about 1 hour before bed and 0.5 mg risperidone right at bed to best treat his restless leg.
[2023-04-10] MEDS: oxyCODONE HCl Immed Release 5 MG TABLET PO ×3 (09:48→18:19)
[2023-04-10] MEDS: Cholecalciferol (Vitamin D3) 25 MCG TABLET 50 MCG PO (09:49)
[2023-04-10] MEDS: FLUoxetine HCl 20 MG CAPSULE 40 MG PO (09:49)
--- NOTE | 2023-04-10 09:55 | P.PNIM_ITS ---
Subjective Subjective Date of Service: 04/10/23 Interval History: left knee pain Physical Exam 2 Vital Signs: Vital Signs: Last Vital Signs Temp 97.1 F 04/10/23 08:00 Pulse 57 04/10/23 08:00 Resp 18 04/10/23 08:00 BP 121/62 04/10/23 08:00 Pulse Ox 96 04/10/23 08:00 O2 Del Method Room Air 04/10/23 08:00 BMI result Body Mass Index 36.9 General: AO X 3, no acute distress Resp: CTA bilateral, no accessory muscles used CVS: S1,S2,RRR GI: soft, non tender, non distended Neuro: motor grossly intact, alert Psych: appropriate affect, appropriate insight left knee tender, decreased rom, swelling Objective Data Active Medications Acetaminophen (Acetaminophen 325 Mg Tablet) 650 mg PO Q6H PRN PRN Reason: Pain, Mild (Pain Scale 1-3) Acetaminophen (Acetaminophen Supp 650 Mg Supp.Rect) 650 mg MT Q6H PRN PRN Reason: Pain, Mild (Pain Scale 1-3) Fluoxetine HCl (Fluoxetine Hcl 20 Mg Capsule) 40 mg PO DAILY [facility] Last Admin: 04/10/23 09:49 Dose: 40 mg Documented By: CHRISTIAN Lactated Ringer's (Lr) 1,000 mls @ 100 mls/hr IVCONT .Q10H ONE Stop: 04/10/23 15:25 Last Admin: 04/10/23 05:49 Dose: 100 mls/hr Documented By: ELDER Melatonin (Melatonin 3 Mg Tablet) 6 mg PO BEDTIME PRN PRN Reason: Insomnia Ondansetron HCl (Ondansetron Hcl 4 Mg/2 Ml Vial) 4 mg IVPUSH Q8H PRN PRN Reason: Nausea and Vomiting Oxycodone HCl (Oxycodone Hcl Immed Release 5 Mg Tablet) 5 mg PO Q4H PRN PRN Reason: moderate pain Last Admin: 04/10/23 09:48 Dose: 5 mg Documented By: CHRISTIAN Ropinirole HCl (Ropinirole Hcl 0.25 Mg Tablet) 0.25 mg PO DAILY@2000 RAUL Ropinirole HCl (Ropinirole Hcl 0.5 Mg Tablet) 0.5 mg PO BEDTIME [facility] Sodium Chloride (0.9 % Sodium Chloride Flush 3 Ml Syringe) 3 ml IVFLUSH QSHIFT [facility] Last Admin: 10/18/23 09:29 Dose: Not Given Documented By: CHRISTIAN Non-Admin Reason: IV Running Vitamin D (Cholecalciferol (Vitamin D3) 25 Mcg Tablet) 50 mcg PO DAILY [facility] Last Admin: 04/10/23 09:49 Dose: 50 mcg Documented By: CHRISTIAN Warfarin Sodium (Warfarin Sodium 5 Mg Tablet) 5 mg PO DAILY@1800 [facility] Labs 04/10/23 00:37 04/10/23 00:37 Labs: Laboratory Results - last 24 hr 04/10/23 04/10/23 00:37 01:33 MCV 90.8 MCH 29.7 MCHC 32.7 RDW 13.8 Plt Count 189 MPV 10.4 Immature Gran % (Auto) 1.1 H Neut % (Auto) 69.5 Lymph % (Auto) 12.[address] [place] % (Auto) 7.4 Eos % (Auto) 8.9 H Baso % (Auto) 0.5 Lymph # (Auto) 1.3 [place] # (Auto) 0.8 Eos # (Auto) 0.9 H Baso # (Auto) 0.1 Abs Immat Gran (auto) 0.11 H Absolute Neuts (auto) 7.2 Absolute Nucleated RBC 0.000 Nucleated RBC % (auto) 0.0 PT 29.6 H INR 2.4 H Anion Gap 11 L Estim Creat Clear Calc 126.4 Estimated GFR > 60 Random Glucose 115 Calcium 8.4 D Magnesium 2.1 Total Bilirubin 0.7 Direct Bilirubin 0.2 AST 14 ALT 10 Alkaline Phosphatase 68 Total Protein 6.3 L Albumin 3.7 Lipase 29 Urine Color Dark Yellow Urine Appearance Clear Urine pH 5.5 Ur Specific [place] 1.025 Urine Protein Trace Urine Glucose (UA) 250 H Urine Ketones Trace Urine Blood Negative Urine Nitrite Negative Ur Leukocyte Esterase Negative Urine Opiates Screen Not Detected Urine Fentanyl Screen Not Detected Ur Barbiturates Screen Not Detected Ur Phencyclidine Scrn Not Detected Ur Amphetamines Screen Not Detected U Benzodiazepines Scrn Not Detected Urine Cocaine Screen Not Detected U Marijuana (THC) Screen POSITIVE H Ethyl Alcohol < 10 COVID-19 ([place]) Negative COVID-19 Clin Com See Note Assessment and Plan (1) Syncope: Status: Acute Plan 53M PMH unprovoked DVT on coumadin, history of obesity complicated by preDM, WAYNE, HTN, HLD now resolved s/p gastric sleeve, chronic pain s/p spinal stimulator - now removed, mood disorder, presented with syncope syncope differential includes orthostatic hypotension concern for cardiac arrythmia given 6 beat VT on tele iv hydration cardio eval, check echo left knee pain, effussion from previous mechanical fall, not syncopal event no fracture on xr continue RICE, consider outpatient ortho/MRI if no improvement history of unprovoked DVT coumadin, monitor inr mood disorder fluoextine full code reason for continued hospitalization:awaiting echo, mckenzie tele Time Spent With Patient Time: Total time managing care of this patient today ____ minutes. Quality Stroke Does the patient have a stroke diagnosis?: No VTE Prior VTE?: No VTE Risk Level:: Medical - moderate - high VTE Device Contraindication: Treatment Not Indicated VTE Drug Contraindication: N/A - Med Ordered
[2023-04-10] MEDS: Warfarin Sodium 5 MG TABLET PO (18:18)
--- NOTE | 2023-04-10 18:26 | PC.NURSE ---
Patient arrived to unit from ED this am oriented to room, call pratt system and staff. A&OX4 speech clear. Neurologically intact. BRADY to command 5/5 except LLE d/t to pain ronnie wrap to left knee and ankle on arrival. Pt removed knee wrap mild edema noted. c/o pain 04/02 Dr Greer notified. Ice pack given for comfort oxycodone ordered and given every 4 hours with some effect. LSCTA denies SOB or CP, NSR on tele. Echo at bedside this afternoon per order. BS+X4 abdomen soft non-tender denies nausea/vomiting. Voiding in urinal without difficulty. Tolerating diet with good appetite. Bed in lowest locked position alarm for safety. Will continue to monitor and report changes
[2023-04-10] MEDS: rOPINIRole HCL 0.5 MG TABLET PO (20:36)
[2023-04-10] MEDS: Melatonin 3 MG TABLET 6 MG PO (20:37)
[2023-04-10] MEDS: rOPINIRole HCL 0.25 MG TABLET PO (20:37)
[2023-04-11] VITALS (7 sets, daily range): BP systolic 100–123; BP diastolic 56–74; PULSE 53–74; RESP 20; TEMP 36.4–36.7; O2SAT 95
[2023-04-11] MEDS: 0.9 % Sodium Chloride Flush 3 ML SYRINGE IVFLUSH ×2 (03:41→08:00)
[2023-04-11] MEDS: oxyCODONE HCl Immed Release 5 MG TABLET PO ×2 (03:41→07:59)
--- NOTE | 2023-04-11 03:50 | PC.NURSE ---
PT C/O ITCHINESS.NO RASH NOTED. NOTIFIED.ORDER FOR BENADRYL 50MG IV X 1 GIVEN.MED GIVEN WITH GOOD EFFECT.
[2023-04-11] MEDS: diphenhydrAMINE HCL 50 MG/ML VIAL IVPUSH (03:56)
[2023-04-11 05:45] LABS: MANUAL DIFF FLAG NO
[2023-04-11 05:51] LABS: Basophils Absolute Auto 0.1 X10*3/uL (0.0-0.2); Basophils Percent Auto 0.7 % (0-2); Eosinophils Absolute Auto 1.3 X10*3/uL (0.0-0.4); Hemoglobin 13.7 g/dl (14.0-18.0); Imm Gran Abs Auto 0.02 X10*3/uL (0.00-0.03); Imm Gran Pct Auto 0.3 % (0.0-0.4); Lymphocytes Absolute Auto 1.8 X10*3/uL (1.2-4.9); Lymphocytes Percent Auto 25.5 % (20-40); Mean Corpuscular HGB Conc 32.6 g/dl (31.0-36.0); Mean Corpuscular Hemoglobin 30.3 pg (27.0-33.0); Mean Corpuscular Volume 92.9 fL (80.0-98.0); Mean Platelet Volume 10.7 fL (9.4-12.4); Monocytes Absolute Auto 0.5 X10*3/uL (0.1-1.2); Monocytes Percent Auto 7.5 % (2-11); Neutrophils Absolute Auto 3.3 x10*3/uL (2.0-8.3); Platelet Count 168 X10*3/uL (160-400); Red Blood Count 4.52 X10*6/uL (4.60-5.80); Red Cell Distribution Width 13.9 % (11.0-16.0); White Blood Count 6.9 X10*3/uL (4.8-10.8)
[2023-04-11 05:57] LABS: INTERNATIONAL NORM RATIO 2.2 (0.9-1.1); Prothrombin Time 27.1 SEC (11.1-13.3)
[2023-04-11 06:14] LABS: Anion Gap 10 (12-20); Blood Urea Nitrogen 8 mg/dL (9-16); Calcium 8.9 mg/dL (8.4-10.2); Carbon Dioxide 29 mmol/L (22-29); Chloride 104 mmol/L (96-108); Creatinine Clr Calc Pharmacy 147.8; Estimated Glomerular Filt Rate > 60; Glucose Random 89 mg/dL (60-115); Sodium 139 mmol/L (135-145)
[2023-04-11] MEDS: Cholecalciferol (Vitamin D3) 25 MCG TABLET 50 MCG PO (07:58)
[2023-04-11] MEDS: Acetaminophen 325 MG TABLET 650 MG PO (07:59)
[2023-04-11] MEDS: FLUoxetine HCl 20 MG CAPSULE 40 MG PO (07:59)
[2023-04-11] MEDS: diphenhydrAMINE HCL 25 MG CAPSULE PO ×2 (10:39→14:31)
[2023-04-11] MEDS: Docusate Sodium 100 MG CAPSULE PO (10:39)
--- NOTE | 2023-04-11 11:54 | MHC.CM.PN ---
[facility] is unable to accept Patient; additional [facility] referrals have been made. PT is recommending home with (new)services/ [facility]. CM will follow.
--- NOTE | 2023-04-11 12:03 | P.DS_ITS ---
DS: Providers Provider Date of Service: 04/11/23 Date of admission: 04/10/23 05:21 Date of discharge: 04/11/23 Primary care physician: Letty Antony PA-C Consults: 04/10/23 09:41 Consult to Cardiology Routine Consulting Provider: [facility] Reason for consultation: syncope, 6 beat vtach on tele 04/11/23 09:43 Consult to Orthopedics Routine Consulting Provider: [facility] Reason for consultation: left knee/ankle pain after fall Has provider been notified: No Attending physician on discharge: Erlin Bradley Discharging clinician: Keena Bain DS: Diagnosis Discharge Diagnosis (1) Syncope: Status: Acute DS: Summary Hospital Course Hospital Course: From H&P on day of admission This is a 53-year-old male with 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 Patient was seen in the ER for a fall, unclear etiology and was sent home with oxycodone. Patient states he went home and smoked marijuana. While he was trying to get up, he felt dizzy/lightheaded and passed out. His saw him lying on the floor. Patient denies chest discomfort/palpitations prior to the fall. No jerking movement of extremities. No history of volume loss including diarrhea or vomiting. No fever, chills, chest discomfort, palpitations, shortness of breath, abdominal pain, changes in urinary or bowel habits. In the emergency department, orthostatic vital signs noted to be positive. syncope Likely realted to orthostatic hypotension as orthostatic vital signs were positive on arrival. They improved with IVF and were negative on the day of discharge. He was noted to have 6 beat VT on tele x1 which was not associated with any symptoms. echo obtained with preserved EF and no valvular pathology. INR is therapeutic on coumadin and no evidence for right heart strain and no hypoxia, tachyardia or chest pain to suggest PE. No further dizziness, was able to ambulate with PT without dizziness. Orthostatic precautions were discussed. Recommend outpatient follow up with PCP. left knee pain, effusion from previous mechanical fall, not syncopal event. no fracture on xr. no white count or erythema to suggest infection. seen by PT recommended home PT and use of crutches which patient has. continue RICE and should follow up with ortho as outpatient. Time Spent with Patient Time attestation: Total time managing care of this patient today ____ minutes. Discharge coordination time: Greater than 30 minutes Quality: Safe Use of Opioids Does Pt have an Active Cancer Diagnosis on the Problem List?: No Quality: Stroke Does the patient have a stroke diagnosis?: No Physical Exam Vital Signs: Vital Signs: Last Vital Signs Temp 97.6 F 04/11/23 11:37 Pulse 58 04/11/23 11:37 Resp 20 04/11/23 11:37 BP 101/62 04/11/23 11:37 Pulse Ox 95 04/11/23 11:37 O2 Del Method Room Air 04/11/23 11:37 BMI result Body Mass Index 36.9 Const: General: cooperative, comfortable, no acute distress, alert and awake Nutritional Appearance: overweight Orientation/consciousness: patient oriented x3 Resp: Effort & Inspection: normal respiratory effort, able to speak in complete sentences, no respiratory distress and no use of accessory muscles Cardio: Rate: regular rate Heart sounds: S1 normal heart sound present and S2 normal heart sound present GI: Inspection: No distended Palpation (GI): Soft to palpation and nontender Neuro: General: patient oriented x3, moves all extremities and CN's II-XI intact bilaterally Extrem: Other: swelling left knee. no erythema, no open wounds or drainage DS: Data Data Completed and Pending Labs on day of discharge: Laboratory Results - last 24 hr 04/11/23 05:36 WBC 6.9 RBC 4.52 L Hgb 13.7 L Hct 42.0 MCV 92.9 MCH 30.3 MCHC 32.6 RDW 13.9 Plt Count 168 MPV 10.7 Immature Gran % (Auto) 0.3 Neut % (Auto) 47.0 Lymph % (Auto) 25.5 [place] % (Auto) 7.5 Eos % (Auto) 19.0 H Baso % (Auto) 0.7 Lymph # (Auto) 1.8 [place] # (Auto) 0.5 Eos # (Auto) 1.3 H Baso # (Auto) 0.1 Abs Immat Gran (auto) 0.02 Absolute Neuts (auto) 3.3 Absolute Nucleated RBC 0.000 Nucleated RBC % (auto) 0.0 PT 27.1 H INR 2.2 H Sodium 139 Potassium 4.0 Chloride 104 Carbon Dioxide 29 Anion Gap 10 L BUN 8 L Creatinine 0.82 Estim Creat Clear Calc 147.8 Estimated GFR > 60 Random Glucose 89 Calcium 8.9 Discharge Plan Discharge Anticipated Discharge Date/Time: 04/11/23 14:31 Patient Disposition: Home Health Service Discharge Diagnosis: orthostatic hypotension syncope NSVT left knee/ankle pain Referrals: Letty Antony PA-C [Primary Care Provider] - 1 Week Joseph Bird PA-C [Physician Weather Forcaster] - 1 Week Aneesh Coreas MD [Physician] - 2 Weeks Discharge Medications: Continued ropinirole 0.25 mg tablet 0.25 mg PO DAILY@2000 ropinirole 0.25 mg tablet 0.5 mg PO BEDTIME warfarin 5 mg tablet 5 mg PO DAILY cholecalciferol (vitamin D3) 25 mcg (1,000 unit) tablet 50 mcg PO DAILY fluoxetine 40 mg capsule 40 mg PO DAILY Discharge Orders: Discharge Order (Routine); Ordered 04/11/23 Ordered By: Keena Bain Activity on Discharge: As tolerated Stand Alone Forms: Patient Portal Discharge page, Work/School Release Care Plan Goals: see below Health Concerns: orthostatic hypotension syncope left knee/ankle strain NSVT Plan of Treatment: stay hydrated. follow orthostatic precautions as discussed call to schedule follow up with PCP call to schedule follow up with orthopedic surgery use crutches for ambulation, can use ronnie wraps and tylenol PT recommended home PT services for non sustained ventricular tachyardia - can follow up with cardiology on outpatient basis. echocardiogram without acute abnormality Assessment: see discharge summary
--- NOTE | 2023-04-11 12:07 | P.CONCA_ITS ---
History of Present Illness History of Present Illness Date of Service: 04/11/23 Chief complaint: Syncope Narrative: This is a cardiology consultation regarding syncopal episode. Patient denies any history of any coronary artery disease or myocardial infarction or cardiomyopathy or in fact any cardiac issues in the past. Stated history of DVT on Coumadin, mood disorder, presenting for syncopal episode. He was initially seen in the emergency room for fall, unclear etiology and then sent home on oxycodone. Then apparently went home and smoke marijuana. He was trying to get up and then felt dizzy and lightheaded and passed out. His saw him lying on the floor. No clear-cut anginal-type symptoms or any palpitations or any other cardiac concerns around that episode. Currently, he states he feels fine. Review of Systems 2 Review of Systems: Yes all other systems are reviewed and are negative Constitutional: Constitutional: Reports as per HPI and Reports no additional constitutional complaints Eyes: Eyes: Reports as per HPI and Denies no additional eye complaints ENT: Denies system reviewed and no additional complaints, except as documented and Reports as per HPI Cardiovascular: Cardiovascular: Reports as per HPI, Reports no additional cardiovascular complaints, Denies acrocyanosis, Denies cool extremities, Denies chest pain, Denies leg edema, Denies lightheadedness, Denies palpitations and Denies dyspnea Respiratory: Respiratory: Reports as per HPI, Denies no additional respiratory complaints and Denies dyspnea Gastrointestinal: Gastrointestinal: Reports as per HPI and Denies no additional gastrointestinal complaints Genitourinary: Genitourinary: Reports no additional male genitourinary complaints and Reports as per HPI Musculoskeletal: Musculoskeletal: Reports no additional musculoskeletal complaints and Reports as per HPI Integumentary/Breasts: Skin/Breast: Reports system reviewed and no additional complaints, except as docu Neurologic: Reports system reviewed and no additional complaints, except as documented and Reports as per HPI Psychiatric: Psychiatric: Reports no additional psychiatric complaints and Reports as per HPI Endocrine: Endocrine: Reports no additional endocrine complaints, Reports as per HPI and Denies palpitations Hematologic/Lymphatic: Hematologic/Lymphatic: Reports no additional hematologic/lymphatic complaints and Reports as per HPI Allergic/Immunologic: Allergic/Immunologic: Reports no additional allergic/immunologic complaints and Reports as per HPI [facility] Past Medical History Medical History Depression DVT (deep venous thrombosis) Family History Pertinent family history: No significant family history pertinent to this admission. Social History Social History Household Members: Spouse and Children Housing: House Do you presently have visiting nurse or other home services: No Alcohol intake: current Alcohol intake frequency: holidays/special occasions only Patient Tobacco Use Status: Never used Tobacco Substance Use Type: Marijuana service: No Meds Allergies Allergy/AdvReac Type Severity Reaction Status Date / Time No Known Allergies Allergy Verified 09/08/22 19:52 Active Medications: Current Medications Acetaminophen (Acetaminophen 325 Mg Tablet) 650 mg PO Q6H PRN PRN Reason: Pain, Mild (Pain Scale 1-3) Last Admin: 04/11/23 07:59 Dose: 650 mg Acetaminophen (Acetaminophen Supp 650 Mg Supp.Rect) 650 mg NE Q6H PRN PRN Reason: Pain, Mild (Pain Scale 1-3) Docusate Sodium (Docusate Sodium 100 Mg Capsule) 100 mg PO DAILY PRN PRN Reason: Constipation Last Admin: 04/11/23 10:39 Dose: 100 mg Fluoxetine HCl (Fluoxetine Hcl 20 Mg Capsule) 40 mg PO DAILY [facility] Last Admin: 04/11/23 07:59 Dose: 40 mg Melatonin (Melatonin 3 Mg Tablet) 6 mg PO BEDTIME PRN PRN Reason: Insomnia Last Admin: 04/10/23 20:37 Dose: 6 mg Ondansetron HCl (Ondansetron Hcl 4 Mg/2 Ml Vial) 4 mg IVPUSH Q8H PRN PRN Reason: Nausea and Vomiting Oxycodone HCl (Oxycodone Hcl Immed Release 5 Mg Tablet) 5 mg PO Q4H PRN PRN Reason: moderate pain Last Admin: 04/11/23 07:59 Dose: 5 mg Ropinirole HCl (Ropinirole Hcl 0.25 Mg Tablet) 0.25 mg PO DAILY@1999 [facility] Last Admin: 04/10/23 20:37 Dose: 0.25 mg Ropinirole HCl (Ropinirole Hcl 0.5 Mg Tablet) 0.5 mg PO BEDTIME [facility] Last Admin: 04/10/23 20:36 Dose: 0.5 mg Sodium Chloride (0.9 % Sodium Chloride Flush 3 Ml Syringe) 3 ml IVFLUSH QSHIFT [facility] Last Admin: 04/11/23 08:00 Dose: 3 ml Vitamin D (Cholecalciferol (Vitamin D3) 25 Mcg Tablet) 50 mcg PO DAILY [facility] Last Admin: 04/11/23 07:58 Dose: 50 mcg Warfarin Sodium (Warfarin Sodium 5 Mg Tablet) 5 mg PO DAILY@1800 [facility] Last Admin: 04/10/23 18:18 Dose: 5 mg Home Medications Medication Instructions Recorded Confirmed Last Taken Type cholecalciferol (vitamin D3) 25 50 mcg PO DAILY 01/31/22 04/10/23 Unknown History mcg (1,000 unit) tablet fluoxetine 40 mg capsule 40 mg PO DAILY 01/31/22 04/10/23 Unknown History warfarin 5 mg tablet 5 mg PO DAILY 01/31/22 04/10/23 04/09/23 History ropinirole 0.25 mg tablet 0.25 mg PO DAILY@2000 04/10/23 04/10/23 04/08/23 History ropinirole 0.25 mg tablet 0.5 mg PO BEDTIME 04/10/23 04/10/23 04/08/23 History Physical Exam 2 Vital Signs: Vital Signs: Last Vital Signs Temp 97.6 F 04/11/23 11:37 Pulse 58 04/11/23 11:37 Resp 20 04/11/23 11:37 BP 101/62 04/11/23 11:37 Pulse Ox 95 04/11/23 11:37 O2 Del Method Room Air 04/11/23 11:37 BMI result Body Mass Index 36.9 Const: General: comfortable and no acute distress O rientation/consciousness: patient oriented x3 HEENT: Other: Unremarkable Head: Yes normal to inspection Neck: Neck: Yes normal visual inspection Chest: Chest palpation & inspection: normal inspection of the chest Resp: Auscultation: clear to auscultation bilaterally Cardio: Palpation: normal PMI Heart sounds: S1 normal heart sound present, S2 normal heart sound present, no gallops, no murmurs and no rubs GI: Palpation (GI): Soft to palpation Back/Spine/Pelvis: Other: unremarkable Skin: General skin exam: no rashes or lesions noted Neuro: General: patient oriented x3 Extrem: General: Yes normal to inspection Psych: Mental Status: mental status grossly normal Objective Labs and Meds 04/11/23 05:36 04/11/23 05:36 Lab results: Laboratory Results - last 24 hr 04/11/23 05:36 WBC 6.9 RBC 4.52 L Hgb 13.7 L Hct 42.0 MCV 92.9 MCH 30.3 MCHC 32.6 RDW 13.9 Plt Count 168 MPV 10.7 Immature Gran % (Auto) 0.3 Neut % (Auto) 47.0 Lymph % (Auto) 25.5 [place] % (Auto) 7.5 Eos % (Auto) 19.0 H Baso % (Auto) 0.7 Lymph # (Auto) 1.8 [place] # (Auto) 0.5 Eos # (Auto) 1.3 H Baso # (Auto) 0.1 Abs Immat Gran (auto) 0.02 Absolute Neuts (auto) 3.3 Absolute Nucleated RBC 0.000 Nucleated RBC % (auto) 0.0 PT 27.1 H INR 2.2 H Sodium 139 Potassium 4.0 Chloride 104 Carbon Dioxide 29 Anion Gap 10 L BUN 8 L Creatinine 0.82 Estim Creat Clear Calc 147.8 Estimated GFR > 60 Random Glucose 89 Calcium 8.9 ECG Interpretation: In the EKG, underlying rhythm is sinus bradycardia at 56/Min; no significant ST- T changes and otherwise unremarkable. Normal NE and corrected QT. On telemetry, underlying sinus rhythm. One run of 6 beats NSVT. Monomorphic. Assessment and Plan (1) Orthostatic hypotension: Status: Acute (2) Syncope: Qualifiers: Syncope type: unspecified Qualified Code(s): R55 - Syncope and collapse Status: Acute Plan High sensitivity troponin within normal limits. Cardiac BNP is also within normal limits. Echocardiogram with preserved LVEF. Otherwise unremarkable. Telemetry shows sinus rhythm only. There is a 6 beat run of NSVT but that is probably just an incidental finding and do not believe that is etiology for any symptom. Symptoms possibly orthostatic in nature. Can increase fluid intake, hydration. Otherwise, no need for any specific meds or other cardiac care. The NSVT is likely not a significant finding and more likely to be just incidental. We will pursue that as an outpatient. Discussed with hospitalist. Time Spent With Patient Time: Total time managing care of this patient today ____ minutes. Procedures Date of Service Date of Service: 04/11/23
--- NOTE | 2023-04-11 15:01 | P.F2F_ITS ---
Service Date Service Date: 04/11/23 Encounter Date of encounter: 04/11/23 Reasons for Services Signs and symptoms assessed: needs PT for left knee and ankle pain for gait training, therapeutic exercises Reason for physical therapy: home safety and mobility and therapeutic exercises Overseeing Care: Letty Antony Homebound: Leaving the home is medically contraindicated at this time without the asist of a device and/or another person due th the listed conditions above and below. Reason homebound: pain with ambulation Certification: Based on the above findings, I certify that this patient is confined to the home and needs intermittent longterm care, physical therapy and/or speech therapy, or continues to need occupational therapy. The patient is under my care, and I have initiated the establishment of the plan of care. The patient will be followed by a physician who will periodically review the plan of care. Time Spent With Patient Time: Total time managing care of this patient today ____ minutes.
--- NOTE | 2023-04-11 15:03 | MHC.CM.PN ---
Patient has been medically cleared for dc to home today with [facility]. [facility] has accepted Patient and they are aware of today's dc.
== END 2023-04-11 16:00 | disposition home health service (06) ==
LOC: HO.ED 04-10 05:18 → HO.EDOVER 04-10 05:25 → HO.IMC 04-10 07:08
PROVIDERS: Internal Medicine; Admitting Provider Student in an Organized Health Care Education/Training Program; Emergency Provider Emergency Medicine; PCP Physician Assistant Surgical; Visit Provider Physician Assistant Medical
DX: R55 Syncope and collapse (principal); I47.20 Ventricular tachycardia, unspecified; M25.562 Pain in left knee; M25.572 Pain in left ankle and joints of left foot; F12.90 Cannabis use, unspecified, uncomplicated; I10 Essential (primary) hypertension; E78.5 Hyperlipidemia, unspecified; R73.03 Prediabetes; M25.462 Effusion, left knee; Z79.899 Other long term (current) drug therapy; Z11.52 Encounter for screening for COVID-19; Z23 Encounter for immunization; Z86.718 Personal history of other venous thrombosis and embolism; Z79.01 Long term (current) use of anticoagulants
CPT/HCPCS: 36415; 80048; 80076; 80307; 81003; 83690; 83735; 84484; 85025; 85610; 87635; 90471; 90686; 93005; 93306; 96361; 96374; 97162; 99222; 99285; J1200; Q9957

== ENCOUNTER 2023-04-10 05:21 | Outpatient (BNV) | payer OTHER, SELFPAY | END 2023-04-10 07:00 | PROVIDERS: Admitting Provider Student in an Organized Health Care Education/Training Program; Emergency Provider Emergency Medicine; PCP Physician Assistant Surgical; Visit Provider Internal Medicine | DX: I47.10 Supraventricular tachycardia, unspecified (principal) | CPT/HCPCS: 93306 ==

== ENCOUNTER → 2023-04-10 05:21 | Outpatient (BNV) | payer OTHER, SELFPAY | PROVIDERS: Admitting Provider Student in an Organized Health Care Education/Training Program; Emergency Provider Emergency Medicine; PCP Physician Assistant Surgical; Visit Provider Student in an Organized Health Care Education/Training Program | DX: R55 Syncope and collapse (principal) | CPT/HCPCS: 99222; 99239; 99499; G0180 ==

== ENCOUNTER → 2023-04-10 05:21 | Outpatient (BNV) | payer OTHER, SELFPAY | PROVIDERS: Admitting Provider Student in an Organized Health Care Education/Training Program; Emergency Provider Emergency Medicine; PCP Physician Assistant Surgical; Visit Provider Internal Medicine | DX: I95.1 Orthostatic hypotension (principal) | CPT/HCPCS: 99223 ==

== ENCOUNTER → 2023-04-29 12:26 | Outpatient (REF) | payer OTHER, SELFPAY ==
--- NOTE | 2023-04-29 12:41 | HM_ITS ---
Conclusion: 1. Patient was monitored for total period of 6 days and 22 hours 2. Baseline was normal sinus rhythm with average heart of 61 beats per minute 3. Frequent sinus bradycardia noted with 51% of time heart rate below 60 beats per minute with no significant pauses 4. Occasional PACs and PVCs noted 5. One 5 beat run of accelerated idioventricular rhythm on day 3 6. No patient reported symptoms MTDD
== END ==
LOC: HO.CARD 12:26
PROVIDERS: PCP Internal Medicine; Visit Provider Internal Medicine
DX: I47.29 Other ventricular tachycardia (principal); R55 Syncope and collapse
CPT/HCPCS: 93242

== ENCOUNTER → 2023-04-29 12:41 | Outpatient (BNV) | payer OTHER, SELFPAY | PROVIDERS: PCP Internal Medicine; Visit Provider Internal Medicine Cardiovascular Disease | DX: R00.1 Bradycardia, unspecified (principal) | CPT/HCPCS: 93244 ==

== ENCOUNTER 2023-05-30 12:08 | Outpatient (AMB) | payer OTHER, SELFPAY ==
--- NOTE | 2023-05-30 12:23 | A.OFFVIS_ITS ---
Intake Vital Signs 05/30/23 12:24 05/30/23 13:04 05/30/23 13:04 05/30/23 13:05 Height 6 ft 2 in Weight 266 lb 12.149 oz BMI 34.2 BP 120/72 118/68 114/62 104/68 Blood Pressure Location Lt brachial Lt brachial Lt brachial Lt brachial Position Sitting Supine Sitting Standing Pulse 82 68 88 98 Pulse Source Pulse Oximeter Intake Visit Reasons: [facility] [place] discharge follow up, post holter Intake Note: [facility] [place] discharge f/up PT its doing good Fiscal Technician Required: No Accompanied by: Self / Same As Patient Allergies No Known Allergies Allergy (Verified 09/08/22 19:52) Medication List - Last Reconciled 05/30/23 by Claudia Person NP cholecalciferol (vitamin D3) 50 mcg PO DAILY fluoxetine 40 mg PO DAILY ropinirole 0.25 mg PO DAILY@1999 ropinirole 0.5 mg PO BEDTIME warfarin 5 mg PO DAILY HPI HPI Comments History of Present Illness Details 53-year-old male presents today [facility] and after having a holter monitor placed. Holter showed heart rate of 43 - 125 bpm average of 61 bpm, one 5 beat of ventriulcar tach. While hospitalized for syncope he had a 6 beat run of ventricular tach. When he had the syncopal episode he had goten up from a nap an went to use the restroom, yelled out for his spouse and suddenly woke up with EMS around him. He reports he gets an occasional chest discomfort that he is unsure how to describe he thinks may be GERD like and occasionally gets a lightheaded zoned out feeling for a few seconds. He denies any other full syncopal episodes or shortness of breath. He reports he has not been hydrating the best due to recent knee operation. [facility] Medical History Depression DVT (deep venous thrombosis) Social History Household Members: Spouse and Children Housing: House Do you presently have visiting nurse or other home services: No Alcohol intake: current Alcohol intake frequency: holidays/special occasions only Patient Tobacco Use Status: Never used Tobacco Substance Use Type: Marijuana service: No Review of Systems Const Reports chills, Reports fatigue, Reports fever(s), Reports frequent falls, Reports weakness, Reports weight gain and Reports weight loss ENT Reports dizziness Card Reports chest pain, Reports leg edema, Reports lightheadedness, Reports palpitations, Reports dyspnea and Reports dyspnea on exertion Resp Reports cough, Reports dyspnea and Reports dyspnea on exertion GI Reports hematochezia Musc Reports abnormal gait, Reports muscle weakness, Reports numbness, Reports radiating pain into limb and Reports tingling Neuro Reports abnormal gait, Reports dizziness, Reports frequent falls, Reports numbness, Reports tingling and Reports weakness Endo Reports fatigue and Reports palpitations Physical Exam Vital Signs: Last Vital Signs Pulse 98 05/30/23 13:05 BP 104/68 05/30/23 13:05 BMI result Body Mass Index 34.2 Assessment & Plan Assessment & Plan (1) Syncope: Code(s): R55 - Syncope and collapse Qualifiers: Syncope type: unspecified Qualified Code(s): R55 - Syncope and collapse (2) Chest discomfort: Code(s): R07.89 - Other chest pain (3) NSVT (nonsustained ventricular tachycardia): Comment: 6 beat during hospitalization and 5 beat during Holter monitoring. Code(s): I47.29 - Other ventricular tachycardia Plan Will get exercise stress test with images to assess the chest discomfort. Will get nuclear images due to possibility of him not eing able to exercise on the treadmill due to recent knee surgery. Orthostatic blood pressures today show a systolic decrease from supine to sitting of 114 mHg. Encourage hydrating well. Report any palpitations, syncopal episodes. or near syncope. Will have him return in 6-[address] Coreas after getting his stress test performed. Orders: Orders NM cardiolite stress test 05/30/23 R07.89 - Other chest pain, R55 - Syncope and collapse CA stress test 05/30/23 R07.89 - Other chest pain, R55 - Syncope and collapse Coding Level of Care Code Est Pt Level 3 (84291) Diagnoses Syncope R55 Syncope type: unspecified Chest discomfort R07.89 NSVT (nonsustained ventricular tachycardia) I47.29
[2023-05-30 12:24] VITALS: BP 120/72; PULSE 82; BMI 34.2
[2023-05-30 13:04] VITALS: BP 114/62; BP 118/68; PULSE 68; PULSE 88
[2023-05-30 13:05] VITALS: BP 104/68; PULSE 98
== END 2023-05-30 13:01 | disposition home or self-care (01) ==
PROVIDERS: PCP Physician Assistant Surgical; Visit Provider Nurse Practitioner
DX: R55 Syncope and collapse (principal); R07.89 Other chest pain; I47.29 Other ventricular tachycardia
CPT/HCPCS: 99213

== ENCOUNTER → 2023-05-30 12:08 | Outpatient (BNVA) | payer OTHER, SELFPAY | PROVIDERS: PCP Physician Assistant Surgical; Visit Provider Nurse Practitioner | DX: R55 Syncope and collapse (principal); R07.89 Other chest pain; I47.29 Other ventricular tachycardia | CPT/HCPCS: 99212 ==

== ENCOUNTER → 2023-07-16 07:44 | Outpatient (REF) | payer OTHER, SELFPAY ==
--- NOTE | ~2023-07-16 | NM_ITS ---
EXERCISE MYOCARDIAL PERFUSION STUDY INDICATION: Significant collapse TECHNIQUE: The patient was brought in for an exercise perfusion study on 07/16/2023. Patient performed exercise as per Zay protocol and was injected 40 mCi of sestamibi once target heart rate was achieved. Images were obtained using the SPECT gamma camera interlaced with the gating device. Images were obtained in supine position. Resting perfusion study was performed on 07/18/2023. Patient was administered 40 mCi of sestamibi intravenously at rest. Images were then obtained in supine position. Images were processed with the software and compared side to side in short axis, horizontal long axis and vertical long axis views. Total DLP 145mGy-cm. FINDINGS: Raw images were reviewed. The stress perfusion study showed diminished tracer uptake along the inferior wall. With CT attenuation correction, there is improved uptake seen just to of diaphragmatic attenuation artifact. The gated study shows normal LV systolic function with calculated LVEF of 55%. LV cavity is normal in size. The gated study shows normal wall thickening and contraction of segments. Resting study shows diminished tracer uptake along the inferior wall. With CT attenuation correction, there is improvement suggestive of diaphragmatic attenuation artifact. Gating at rest reveals normal wall motion with ejection fraction at 53%. The findings are consistent with fixed inferior defect suspected to be from diaphragmatic attenuation artifact. NM/NM cardiolite stress test IMPRESSION: 1. Myocardial perfusion imaging study shows no clear evidence of any ischemia or infarction. Probably normal myocardial perfusion. 2. Gated LVEF is 55% during stress and 53% during rest. 3. Transient ischemic dilatation not present. EKG component of the test reported separately.
--- NOTE | 2023-07-16 07:47 | CA_ITS ---
Acquisition Time: 2023-07-16 07:52:50 Total Exercise Time: 00:08:59 Test Indications: CP, SYNCOPE Medications: SEE H Protocol: ELISABET Max HR: 157 BPM 94% of Pred: 166 BPM Max BP: 134/080 mmHG Max Work Load: 10.1 METS Exercise stress test exercise 8 min 59 sec of Elisabet protocol achieving 94% MPHR, with mild SOB, no chest discomfort, with isolated PVCs, with normotensive response to exercise, without EKG changes, Nuclear images pending, Test reviewed with Dr. Lemus. Referred By: Claudia Person Overread By: Claudia Person
== END ==
LOC: HO.CARD 07:44
PROVIDERS: PCP Physician Assistant Surgical; Visit Provider Nurse Practitioner
DX: R07.89 Other chest pain (principal); R55 Syncope and collapse
CPT/HCPCS: 78452; 93017; A9500

== ENCOUNTER → 2023-07-16 07:47 | Outpatient (BNV) | payer OTHER, SELFPAY | PROVIDERS: PCP Physician Assistant Surgical; Visit Provider Nurse Practitioner | DX: R06.02 Shortness of breath (principal); R07.89 Other chest pain | CPT/HCPCS: 78452; 93016; 93018 ==

== ENCOUNTER 2023-12-15 10:14 | Emergency (ER) | payer OTHER, SELFPAY ==
--- NOTE | ~2023-12-15 | XR_ITS ---
EXAMINATION: XR SHOULDER, LEFT CLINICAL INFORMATION: Pain. Fall. COMPARISON: None available. TECHNIQUE: AP external rotation, Grashey, scapular Y, and axillary views of the left shoulder. FINDINGS: Bone alignment is normal. No fracture or dislocation. Degenerative changes at the glenohumeral and acromioclavicular joints. Normal soft tissues. XR/XR shoulder LT min 2V IMPRESSION: Degenerative changes. No fracture or dislocation.
--- NOTE | ~2023-12-15 | XR_ITS ---
EXAMINATION: XR ELBOW, LEFT CLINICAL INFORMATION: Pain post fall COMPARISON: None available. TECHNIQUE: AP, lateral, and oblique views of the left elbow. FINDINGS: The bones and soft tissues are normal. No fracture or joint effusion. Alignment is anatomic. Joint spaces are maintained. XR/XR elbow LT 2V IMPRESSION: Normal left elbow.
--- NOTE | ~2023-12-15 | XR_ITS ---
EXAMINATION: XR HAND/WRIST, LEFT CLINICAL INFORMATION: Fall. Pain. COMPARISON: None TECHNIQUE: PA, lateral, and oblique views of the left hand and wrist. 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 Amputation of the third finger and most of the third metacarpal bone. Surgical hardware adjacent to the distal shafts of the second and fourth metacarpal bones. Question old trauma to the distal tuft of the fifth finger. No acute fracture or dislocation. Joint spaces are normal. Carpal bones are normal. Soft tissue calcification in between the shafts of the second and fourth metacarpal bones. XR/XR hand wrist LT IMPRESSION: No acute fracture or dislocation. Postsurgical changes described above.
[2023-12-15 10:25] VITALS: BP 136/82; PULSE 53; RESP 16; TEMP 36.7; O2SAT 98; BMI 32.1
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
[2023-12-15 13:13] VITALS: BP 136/82; PULSE 53; RESP 16; TEMP 36.7; O2SAT 98
== END 2023-12-15 13:13 | disposition home or self-care (01) ==
PROVIDERS: Emergency Provider Emergency Medicine; PCP Internal Medicine
DX: S63.502A Unspecified sprain of left wrist, initial encounter (principal); W10.9XXA Fall (on) (from) unspecified stairs and steps, initial encounter; Y93.9 Activity, unspecified; Y92.9 Unspecified place or not applicable; Y99.9 Unspecified external cause status; M79.622 Pain in left upper arm
CPT/HCPCS: 29125; 73030; 73070; 73110; 73130; 99282; 99283

== ENCOUNTER 2023-12-20 12:11 | Emergency (ER) | payer OTHER, SELFPAY ==
[2023-12-20 12:25] VITALS: BP 115/67; PULSE 66; RESP 18; TEMP 36.7; O2SAT 97; BMI 31.4
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
--- OUTSIDE RECORDS SUMMARY | 2023-12-20 14:04 | XMS_ITS | Continuity of Care Document ---
Author Organization [facility] Address [address] [place] [address]- Care Team Providers Care Exercise Rider Name Role Phone Ernestine AC, Luis Fernando Alexandre Primary Care Physician [phone] [place] [facility] [id number] Date(s): 05/02/23 - 05/09/23 [facility] [address] [place] [id number] Attending Physician: Faith AC, Ranjan Corral Referring Physician: Tc AC, Reymundo Alfaro Allergies, Adverse Reactions, Alerts No Known Allergies Medications . ., See Instructions, # 1 each, Refills 0, Tot. Refills 0, Maintenance, Sacroiliac Joint Belt. DX Sacroilitis. M53.3, 07/25/17 10:11:26, Compound Start Date: 07/25/17 Status: Ordered Fluoxetine = 20 mg, By Mouth, 0 Refills, Maintenance, 11/14/16 10:41:33 Start Date: 11/14/16 Status: Ordered rOPINIRole 0.25 mg oral tablet 1 tablet = 0.25 mg, By Mouth, Daily, 0 Refills, Maintenance, 10/31/22 7:50:00 EDT, Partial fill upon patient request if the prescription is for a schedule II opioid drug. Start Date: 10/31/22 Status: Ordered Vitamin D3 2000 intl units oral capsule 1 capsule = 50 mcg, By Mouth, Daily, # 60 capsule, 0 Refills, Maintenance, 10/09/22 8:01:00 EDT, Capsule, Partial fill upon patient request if the prescription is for a schedule II opioid drug. 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 5 Confirmed 07/21/12 Active Gastroesophageal reflux disease Confirmed Active Chronic anticoagulation Confirmed Active Hand pain Confirmed Active Hand reconstruction 6 Confirmed 04/24/08 Active Hematoma complicating a procedure Confirmed Active Hypersomnia 7 Confirmed Active Hypothyroidism Confirmed Active Liver function tests abnormal Confirmed Active Mechanical low back pain Confirmed Active Myofascial pain, regional Confirmed Active Neuropathic pain 8 Confirmed Active Not getting enough sleep Confirmed Active Obese class I Confirmed Active Obstructive sleep apnea syndrome 9 Confirmed Active Ray amputation of finger 10 Confirmed 08/23/07 Active Reactive depression (situational) Confirmed Active Revision of current traumatic amputation of finger 11 Confirmed 12/22/06 Active Tarsal tunnel decompression 12 Confirmed 2006 Active Tarsal tunnel syndrome 13 Confirmed Active Therapy outcome measure 14 Confirmed Active Traumatic amputation of finger with complication 15 Confirmed 05/29/03 Active Traumatic amputation of finger without complication 16 Confirmed 05/29/03 Active 1History of antidepressant, cholesterol lowering agent and opioid co-treatment; history of warfarin treatment; no history of CK > 150. 2ethosuximide trial: 09/03-09/19/13: @1250 mg/day: cogntive changes,daytime somnolence, no analgesic benefit 3off cholesterol lowering medication and antidepressant since December 2010 4no benefit @ 40 mg/day of memantine. 10/02/11 5On 07/21/2012 1. excision of neuroma radial digital nerve long finger 2. excision of neuroma ulnar digital nerve long finger 3. implantation of stump radial digital nerve long finger into adductor pollicis 4. implantation of stump ulnar digital nerve long finger into adductor pollicis for neuropathic pain with volar tinel's sign in palm related to neuroma radial digital nerve long finger by Daniella Bernal at [facility]. 6left 7Epworth Sleepiness Scale total score: 17 on 05/31/11; [place] Sleepiness Scale: 14 on 04/26/13 8left hand 9[facility] study at [facility] on 05/27 reveled moderate obstructive sleep apnea (AHI 17.1) and periodic leg movements in the severe range. 10left 3rd finger 11left 3rd finger; partial amputation above PIP 12right; history of varicosities 13right 14Initial Oswestry Disability Index: 42% ( severe disability ) on 05/31/2011, Updated Oswestry: 30% ( moderate disability ) on 04/26/13; Initial [place] Back Pain Disability Scale: 33 on 04/26/13. 15left 3rd tuft/incomplete DIP(nail fragment retained; August 24, 2003 surgery resulted in complication/infection) 16left 4th finger to DIP joint; he did have retained finger nail fragments removed 08/24/2003 Vital Signs Most recent to oldest [Reference Range]: 1 Height 187.96 cm (05/02/23 1:51 PM) Weight 122.1 kg (05/02/23 1:51 PM) Oxygen Saturation [94-100 %] 97 % (05/02/23 1:51 PM) Pulse Rate [55-90 bpm] 64 bpm (05/02/23 1:51 PM) Body Mass Index [18.5-24.99 kg/m2] 34.56 kg/m2 *>HHI* (05/02/23 1:51 PM) Blood Pressure [90-138/55-84 mm Hg] 132/ 84mm Hg (05/02/23 1:51 PM) Respiratory Rate [16-30 br/min] 18 br/mi n (05/02/23 1:51 PM) Mode of Delivery (Oxygen) Room air (05/02/23 1:51 PM) Blood pressure sites Arm, right (05/02/23 1:51 PM) Weight Obtained Via Standing scale (05/02/23 1:51 PM) Social History Social History Type Response Smoking Status Never smoker entered on: 05/29/13 Sex Patient Care team information Care Team Personnel Name: Ernestine AC, Luis Fernando Alexandre Position: Reference Physician Member Role: PCP Address: Address: [address] [place] [address] [place] [address]- Name: Dick Sheldon Jr, MD Position: [facility] Anesthesiology MD Member Role: Lifetime Consulting Physician Address: Address: [address] [place] [address] [place] [address]- Name: Franky GRACE, Zaida Branch Position: [facility] Onco RN Member Role: Primary Care Nurse Care Team Related Persons Name: LIZETH JEFFERSON Address: home [address] [place] [address]
--- OUTSIDE RECORDS SUMMARY | 2023-12-20 14:04 | XMS_ITS | Continuity of Care Document ---
Author Organization [facility] Address [address] [place] [address]- Care Team Providers Care Hydrotreater Operator Name Role Phone Ernestine AC, Luis Fernando Alexandre Primary [id number] - 06/01/23 [facility] [address] [place], [place] [address] Attending Physician: Emily Gan Admitting Physician: AdmtrEmily Referring Physician: Admtr, Ar8 Allergies, Adverse Reactions, Alerts No Known Allergies [...] nerve long finger by Daniella Bernal at [facility]. 6left 7Epworth Sleepiness Scale total score: 17 on 05/31/11; [place] Sleepiness Scale: 14 on 04/26/13 8left hand 9[facility] study at [facility] on 05/27 reveled moderate obstructive sleep apnea (AHI 17.1) and periodic leg movements in the severe range. 10left 3rd finger 11left 3rd finger; partial amputation above PIP 12right; history of varicosities 13right 14Initial Oswestry Disability Index: 42% ( severe disability ) on 05/31/2011, Updated Oswestry: 30% ( moderate disability ) on 04/26/13; Initial [place] Back Pain Disability Scale: 33 on 04/26/13. 15left 3rd tuft/incomplete DIP(nail fragment retained; August 24, 2003 surgery resulted in complication/infection) 16left 4th finger to DIP joint; he did have retained finger nail fragments removed 08/24/2003 Social History Social History Type Response Smoking Status Never smoker entered on: 05/29/13 Sex Patient Care team information Care Team Personnel Name: Ernestine AC, Luis Fernando Alexandre Position: Reference Physician Member Role: PCP Address: Address: [address] [place] [address]- Name: Monalisa Zurita MD, Dick Houser Position: [facility] Anesthesiology MD Member Role: Lifetime Consulting Physician Address: Address: [address] [place] [address] [place] [address]- Name: Franky GRACE, Zaida Branch Position: [facility] Onco RN Member Role: Primary Care Nurse Care Team Related Persons Name: LIZETH JEFFERSON Address: home [address] [place] [address]
--- OUTSIDE RECORDS SUMMARY | 2023-12-20 14:04 | XMS_ITS | Continuity of Care Document ---
Author Organization [facility] Address [address] [place] [address]- Care Team Providers Care Customer Service Officer Name Role Phone Ernestine AC, Luis Fernando Alexandre Primary Care Physician Encounter [facility] R [id number] Date(s): 02/13/23 - 05/16/23 [facility] [address] [place] [address]- Attending Physician: Laron Ward MD Admitting Physician: Laron Ward MD Allergies, Adverse Reactions, Alerts No Known Allergies [...] nerve long finger by Daniella Bernal at [facility]. 6left 7Epworth Sleepiness Scale total score: 17 on 05/31/11; [place] Sleepiness Scale: 14 on 04/26/13 8left hand 9Sleep study at [facility] on 05/27 reveled moderate obstructive sleep apnea (AHI 17.1) and periodic leg movements in the severe range. 10left 3rd finger 11left 3rd finger; partial amputation above PIP 12right; history of varicosities 13right 14Initial Oswestry Disability Index: 42% ( severe disability ) on 05/31/2011, Updated Oswestry: 30% ( moderate disability ) on 04/26/13; Initial [place] Back Pain Disability Scale: 33 on 04/26/13. [...] Reference Physician Member Role: PCP Address: Address: [address] [place] [address] [place] [address]- Name: Monalisa Zurita MD, Dick Houser Position: [facility] Anesthesiology MD Member Role: Lifetime Consulting Physician Address: Address: [address] [place] [address] [place] [address]- Name: Franky GRACE, Zaida Branch Position: [facility] Onco RN Member Role: Primary Care Nurse Care Team Related Persons Name: LIZETH JEFFERSON Address: home [address] [place] [address]
--- OUTSIDE RECORDS SUMMARY | 2023-12-20 14:04 | XMS_ITS | Continuity of Care Document ---
Author Organization [facility] Address [address] [place] [address]- Care Team Providers Care Sand Car Worker Name Role Phone Ernestine AC, Luis Fernando Alexandre Primary Care Physician [phone] [place] [facility] [place](s): 01/01/23 - 01/31/23 [facility] [address] [place] [address]- Allergies, Adverse Reactions, Alerts No Known Allergies [...] Active Not getting enough sleep Confirmed Active Obstructive sleep apnea syndrome 9 Confirmed Active Ray amputation of finger 10 Confirmed 08/23/07 Active Reactive depression (situational) Confirmed Active Revision of current traumatic amputation of finger 11 Confirmed 12/22/06 Active Severe obesity (BMI 35.0-39.9) with comorbidity Confirmed Active Tarsal tunnel decompression 12 Confirmed 2006 [...] nerve long finger by Daniella Bernal at [facility]. 6left 7Epworth Sleepiness Scale total score: 17 on 05/31/11; [place] Sleepiness Scale: 14 on 04/26/13 8left hand 9Sleep study at [facility] on 05/27 reveled moderate obstructive sleep apnea (AHI 17.1) and periodic leg movements in the severe range. 10left 3rd finger 11left 3rd finger; partial amputation above PIP 12right; history of varicosities 13right 14Initial Oswestry Disability Index: 42% ( severe disability ) on 05/31/2011, Updated Oswestry: 30% ( moderate disability ) on 04/26/13; Initial [place] Back Pain Disability Scale: 33 on 04/26/13. [...] Reference Physician Member Role: PCP Address: Address: [address] [place] [address] [place] [address]- Name: Monalisa Zurita MD, Dick Houser Position: [facility] Anesthesiology MD Member Role: Lifetime Consulting Physician Address: Address: [address] [place] [address] [place] [address]- Name: Franky GRACE, Zaida Branch Position: [facility] Onco RN Member Role: Primary Care Nurse Care Team Related Persons Name: LIZETH JEFFERSON Address: home [address] [place] [address]
--- OUTSIDE RECORDS SUMMARY | 2023-12-20 14:04 | XMS_ITS | Continuity of Care Document ---
Author Organization [facility] Address [address] [place] [address]- Care Team Providers Care Script Girl Name Role Phone Ernestine AC, Luis Fernando Alexandre Primary Care Physician [place] [facility] [place] [id number] Date(s): 04/16/23 - 05/16/23 [facility] [address] [place] [address]- Attending Physician: Emily Gan Admitting Physician: AdmEmily beckwith Referring Physician: Admtr ArReji Allergies, Adverse Reactions, Alerts No Known Allergies [...] nerve long finger by Daniella Bernal at [facility]. 6left 7Epworth Sleepiness Scale total score: 17 on 05/31/11; [place] Sleepiness Scale: 14 on 04/26/13 8left hand 9Sleep study at [facility] on 05/27 reveled moderate obstructive sleep apnea (AHI 17.1) and periodic leg movements in the severe range. 10left 3rd finger 11left 3rd finger; partial amputation above PIP 12right; history of varicosities 13right 14Initial Oswestry Disability Index: 42% ( severe disability ) on 05/31/2011, Updated Oswestry: 30% ( moderate disability ) on 04/26/13; Initial [place] Back Pain Disability Scale: 33 on 04/26/13. 15left 3rd tuft/incomplete DIP(nail fragment retained; August 24, 2003 surgery resulted in complication/infection) 16left 4th finger to DIP joint; he did have retained finger nail fragments removed 08/24/2003 Social History Social History Type Response Smoking Status Never smoker entered on: 05/29/13 Sex Patient Care team information Care Team Personnel Name: Ernestine AC, Luis Feranndo Alexandre Position: Reference Physician Member Role: PCP Address: Address: [address] [place] [address] [place] [address]- Name: Monalisa Zurita MD, Dick Houser Position: [facility] Anesthesiology MD Member Role: Lifetime Consulting Physician Address: Address: [address] [place] [address] [place] [address]- Name: Franky GRACE, Zaida Branch Position: [facility] Onco RN Member Role: Primary Care Nurse Care Team Related Persons Name: LIZETH JEFFERSON Address: home [address] [place] [address]
--- OUTSIDE RECORDS SUMMARY | 2023-12-20 14:04 | XMS_ITS | Continuity of Care Document ---
Author Organization [facility] Address [address] [place] [address]- Care Team Providers Care Manager Of School Name Role Phone Luis Fernando Sinha MD Primary Care Physician Encounter [facility] Date(s): 05/15/23 - 05/15/[address] [address]- Discharge Disposition: A-D/C Home Attending Physician: Reymundo Monetz MD Admitting Physician: Reymundo Montez MD Referring Physician: Reymundo Montez MD Allergies, Adverse Reactions, Alerts No Known Allergies Medications . ., See Instructions, # 1 each, Refills 0, Tot. Refills 0, Maintenance, Sacroiliac Joint Belt. DX Sacroilitis. M53.3, 07/25/17 10:11:26, Compound Start Date: 07/25/17 Status: Ordered Fluoxetine = 20 mg, By Mouth, 0 Refills, Maintenance, 11/14/16 10:41:33 Start Date: 11/14/16 Status: Ordered oxyCODONE 5 mg oral tablet 10 mg, Tablet, By Mouth, Once, Routine, 05/15/23 15:00:00 EST, Stop date 05/15/23 15:00:00 EST Start Date: 05/15/23 Stop Date: 05/15/23 Status: Completed rOPINIRole 0.25 mg oral tablet 1 tablet [...] nerve long finger by Daniella Bernal at [facility]. 6left 7Epworth Sleepiness Scale total score: 17 on 05/31/11; [place] Sleepiness Scale: 14 on 04/26/13 8left hand 9Sleep study at [facility] on 05/27 reveled moderate obstructive sleep apnea (AHI 17.1) and periodic leg movements in the severe range. 10left 3rd finger 11left 3rd finger; partial amputation above PIP 12right; history of varicosities 13right 14Initial Oswestry Disability Index: 42% ( severe disability ) on 05/31/2011, Updated Oswestry: 30% ( moderate disability ) on 04/26/13; Initial [place] Back Pain Disability Scale: 33 on 04/26/13. 15left 3rd tuft/incomplete DIP(nail fragment retained; August 24, 2003 surgery resulted in complication/infection) 16left 4th finger to DIP joint; he did have retained finger nail fragments removed 08/24/2003 Vital Signs Most recent to oldest [Reference Range]: 1 2 3 Height 188 cm (05/15/23 11:45 AM) Weight 121.7 kg (05/15/23 11:45 AM) Oxygen Saturation [94-100 %] 97 % (05/15/23 2:00 PM) 97 % (05/15/23 1:45 PM) 100 % (05/15/23 1:30 PM) Pulse Rate [55-90 bpm] 62 bpm (05/15/23 11:45 AM) Body Mass Index [18.5-24.99 kg/m2] 34.43 kg/m2 *>HHI* (05/15/23 11:45 AM) Blood Pressure [90-138/55-84 mm Hg] 119/71mm Hg (05/15/23 2:00 PM) 118/73mm Hg (05/15/23 1:45 PM) 120/73mm Hg (05/15/23 1:30 PM) Respiratory Rate [16-30 br/min] 11 br/min *L* (05/15/23 2:00 PM) 12 br/min *L* (05/15/23 1:55 PM) 9 br/min *L* (05/15/23 1:45 PM) Temperature [96.8-100.4 DegF] 98.4 DegF (05/15/23 2:00 PM) 98.3 DegF (05/15/23 12:55 PM) 99.1 DegF (05/15/23 11:45 AM) Liters per Minute 6 L/min (05/15/23 1:30 PM) 6 L/min (05/15/23 12:55 PM) Mode of Delivery (Oxygen) Room air (05/15/23 2:00 PM) Room air (05/15/23 1:45 PM) Blow by (05/15/23 1:30 PM) Blood pressure sites Arm, left (05/15/23 12:55 PM) Arm, left (05/15/23 11:45 AM) Temperature Route Temporal (05/15/23 2:00 PM) Temporal (05/15/23 12:55 PM) Oral (05/15/23 11:45 AM) Dry Weight 121.7 kg (05/15/23 11:45 AM) Weight Obtained Via Standing scale (05/15/23 11:45 AM) Dry Weight Obtained Via Standing scale (05/15/23 11:45 AM) Social History Social History Type Response Smoking Status Never smoker entered on: 05/29/13 Sex History and physical note * Tc AC, Reymundo Alfaro: PERFORM Event Display: History and Physical Hospital Authored Date: Patient: ??CHEMA JEFFERSON ? Age:??53 Years?Sex:??Male?:??1970?? Chief complaint: Left knee pain Interval history: Patient following up today for MRI review for his left knee. Reports still havingsevere knee pain. Patient had evaluation with Dr. Perez and was diagnosed with anterior process calcaneus avulsion fracture. He had been using a CAM boot and reports his foot pain has been improving. ?? Interval history: Patient is a 53-year-old male here today for follow-up evaluation for his left knee. He was last seen October 02, 2022. Diagnosed with osteoarthritis exacerbation and a steroid injection was administered. Patient reports he sustained a new injury to his knee on April 09, 2023 whenhe was walking and injured both ankles and twisted his knee. He had evaluation at emergency room and was provided oxycodone. He then had an episode later that night where he believes he lost consciousness and is not sure if he reinjured his knee. He complains of severe knee pain and swelling. He has been using crutches and limiting weightbearing on the left lower extremity. ?? PMH: DVTs on Coumadin, depression PSH: Denies?? ALLERGIES: No known drug allergies SOCIAL: Patient is not employed. Nonsmoker. ?? 14 Point ROS conducted and negative except as mentioned in HPI Family history reviewed and noncontributory to HPI ? PHYSICAL EXAM: Height and weight recorded on intake form GEN: NAD, Resting comfortably PSYCH: A+Ox3, appropriate mood and affect CARDIAC: RRR CHEST: No labored respirations, no wheezing ABDOMEN: ??Non distended ? Knee SIDE: Left INSPECTION: Estimated 5 cc effusion normal alignment, no ecchymosis PALPATION: Positive tenderness palpation anterior soft tissues, medial and lateral joint line LOWER EXTREMITY EXAM: unremarkable, no motor or sensory deficits AROM:Straight leg raise intact: Knee range of motion 0-120 degrees with pain Pain and guarding limiting limited examination Negative Jl negative anterior and posture drawer?? Stable to varus and valgus stress at 0 and 30 degrees ? X-rays 4 views previously obtained: bilateral AP weightbearing, Francisco, sunrise and lateral view, left knee demonstrate unchanged appearance ??mild osteoarthritis with joint space narrowing in themedial compartment. There is spurring superior inferior pole of the patella with osteophyte formation. ?? MRI left knee obtained on April 17, 2023 imaging and report independent reviewed: Complex tear medial meniscus involving the body and posterior horn. Radial tear body lateral meniscus. Tricompartmental chondromalacia with areas of chondral thinning and fissuring. Mucoid degeneration of the ACL with possible proximal partial tear. Segond fracture lateral tibial plateau. Low-grade sprains of the popliteus and LCL. ?? Impression: Left knee medial and lateral meniscus tears. Plan: Reviewed diagnosis with the patient today. MRI demonstrates medial lateral meniscus tears in addition to mild tricompartmental chondromalacia. These findings likely chronic. Acute findings including ACL sprain with Segond fracture We discussed various treatment options including continued conservative management, injections, physical therapy, activity modification, anti- inflammatory medication or considering surgery: [Left knee arthroscopy, partial medial and lateral meniscectomy, and other indicated procedures]. We reviewed the proposed procedure, reasonable expectations, ??anticipatedrehabilitation timeline, and restrictions. Risks, benefits, and alternatives of the procedure were discussed at length with the patient. Risks discussed included but were not limited to bleeding, infection, damage to neurovascular structures, pain after surgery, incomplete or temporary symptom relief, inability to return to previous level of activity, progression of osteoarthritis, medical and anesthesia related complications, and thromboembolic events. Patient had a chance to have all questions answered today and wishes to move forward with surgical scheduling Patient Care team information Care Team Personnel Name: Ernestine AC, Luis Fernando Alexandre Position: Reference Physician Member Role: PCP Address: Address: [address] [place] [address]- Name: Monalisa Zurita MD, Dick Houser Position: [facility] Anesthesiology MD Member Role: Lifetime Consulting Physician Address: Address: [address] [place] [address] [place] [address]- Name: Franky GRACE, Zaida Branch Position: [facility] Onco RN Member Role: Primary Care Nurse Care Team Related Persons Name: LIZETH JEFFERSON Address: home [address] [place] [address]
[2023-12-20 15:19] VITALS: BP 115/67; PULSE 66; RESP 18; TEMP 36.7; O2SAT 97
== END 2023-12-20 15:19 | disposition home or self-care (01) ==
PROVIDERS: Emergency Provider Emergency Medicine; PCP Internal Medicine
DX: S63.502A Unspecified sprain of left wrist, initial encounter (principal); X58.XXXA Exposure to other specified factors, initial encounter; Y93.9 Activity, unspecified; Y92.9 Unspecified place or not applicable; Y99.8 Other external cause status; Z79.899 Other long term (current) drug therapy
CPT/HCPCS: 99282

== ENCOUNTER 2024-02-20 18:04 | Emergency (ER) | payer OTHER, SELFPAY ==
--- NOTE | ~2024-02-20 | US_ITS ---
EXAMINATION: US TRIPLEX LOWER EXTREMITY, LEFT CLINICAL INFORMATION: Left calf/ Posterior knee pain COMPARISON: Bilateral lower extremity duplex 12/19/20 TECHNIQUE: Color-flow triplex imaging with spectral analysis and compression Doppler were performed on the left lower extremity. FINDINGS: Respiratory variation, normal compression and augmented flow are noted throughout the left lower extremity. The visualized common femoral vein, superficial femoral vein, profunda femoral vein, popliteal vein and midcalf peroneal and posterior tibial venous segments show no evidence of deep venous thrombosis. There is no Tobias's cyst. US/US venous duplex LE IMPRESSION: No evidence of deep venous thrombosis involving the left lower extremity. Electronically signed by: Sindi Oviedo MD 02/20/2024 07:21 PM EDT
[2024-02-20 18:15] VITALS: BP 112/76; PULSE 72; RESP 16; TEMP 36.9; O2SAT 98; BMI 30.8
--- NOTE | 2024-02-20 18:31 | ED_ITS ---
HPI - Extremity Injury (Lower) General Chief Complaint: Extremity Injury, Lower Stated Complaint: blood clot in L leg per On Coumadin Related Data Home Medications ?Medication ?Instructions ?Recorded ?Confirmed cholecalciferol (vitamin D3) 25 50 mcg PO DAILY 01/31/22 04/10/23 mcg (1,000 unit) tablet fluoxetine 40 mg capsule 40 mg PO DAILY 01/31/22 04/10/23 warfarin 5 mg tablet 5 mg PO DAILY 01/31/22 04/10/23 ropinirole 0.25 mg tablet 0.25 mg PO DAILY@199904/10/23 04/10/23 ropinirole 0.25 mg tablet 0.5 mg PO BEDTIME 04/10/23 04/10/23 Previous Rx's ?Medication ?Instructions ?Recorded cyclobenzaprine 10 mg tablet 10 mg PO TID PRN muscle spasm #15 12/15/23 tabs oxycodone 5 mg tablet 5 mg PO Q8H PRN pain #6 tabs 12/15/23 diclofenac sodium 1 % topical gel 2 g topical QID #100 grams 12/20/23 oxycodone 5 mg tablet 5 mg PO TID PRN severe pain (scale 12/20/23 score 7-10) #9 tabs Allergies Allergy/AdvReac Type Severity Reaction Status Date / Time No Known Allergies Allergy Verified 02/20/24 18:17 [facility] Past Medical History Medical History Depression DVT (deep venous thrombosis) Social History Social History Household Members: Spouse and Children Housing: House Do you presently have visiting nurse or other home services: No Alcohol intake: current Alcohol intake frequency: holidays/special occasions only Patient Tobacco Use Status: Never used Tobacco Substance Use Type: Marijuana Advance Directives: No Advance Directives Information Provided: No service: No Physical Exam Vital Signs: Vital Signs: Last Vital Signs Temp 98.5 F 02/20/24 18:15 Pulse 72 02/20/24 18:15 Resp 16 02/20/24 18:15 BP 112/76 02/20/24 18:15 Pulse Ox 98 02/20/24 18:15 O2 Del Method Room Air 08/29/24 18:15 BMI result Body Mass Index 30.8 Course Course Course Narrative: This is a Rapid Medical Examination (RME) performed by Alfredo Abbasi PA-C in triage. Full HPI, ROS, assessment and treatment plan per primary provider in the Main ED. 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 no recent travel/ long car rides. Denies injury or trauma Plan: Ultrasound Reevaluation(s) Reevaluation #1: Patient left the emergency department before myself or any of the other clinicians could review or explain physical exam findings, test results, need or lack there of for additional testing, treatment options, or a treatment plan. Discharge Plan Discharge Clinical Impression: Lower extremity pain, left Patient Disposition: Left W/O Completing Treatment Prescriptions: No Action cyclobenzaprine 10 mg tablet 10 mg PO TID PRN (Reason: muscle spasm) Qty: 15 0RF oxycodone 5 mg tablet 5 mg PO Q8H PRN (Reason: pain) Qty: 6 0RF Rx Instructions: Partial Fill upon patient request. ropinirole 0.25 mg tablet 0.25 mg PO DAILY@2000 ropinirole 0.25 mg tablet 0.5 mg PO BEDTIME oxycodone 5 mg tablet 5 mg PO TID PRN (Reason: severe pain (scale score 7-10)) Qty: 9 0RF Rx Instructions: Partial Fill upon patient request. diclofenac sodium 1 % gel 2 g topical QID Qty: 100 0RF Rx Instructions: apply to single elbow, wrist or hand; for hand includes palm/fingers/back of hand warfarin 5 mg tablet 5 mg PO DAILY cholecalciferol (vitamin D3) 25 mcg (1,000 unit) tablet 50 mcg PO DAILY fluoxetine 40 mg capsule 40 mg PO DAILY Discharge Date/Time: 02/20/24 20:43
== END 2024-02-20 20:43 | disposition left against medical advice (07) ==
LOC: HO.ED 20:30
PROVIDERS: Emergency Provider Emergency Medicine; PCP Internal Medicine
DX: M79.605 Pain in left leg (principal); R60.0 Localized edema
CPT/HCPCS: 93971; 99281

== ENCOUNTER 2024-02-21 06:25 | Emergency (ER) | payer OTHER, SELFPAY ==
[2024-02-21 06:39] VITALS: BP 115/69; PULSE 63; RESP 16; TEMP 36.9; O2SAT 97; BMI 30.8
--- NOTE | 2024-02-21 06:50 | ED.GENADULT ---
HPI - General Adult General Chief complaint: General Medical Stated complaint: leg pain Time Seen by Provider: 02/21/24 06:50 Source: patient Mode of arrival: ambulatory Limitations: no limitations History of Present Illness HPI narrative: Patient is a 54-year-old male who presents emergency department for evaluation of pain to the left leg reported to be to the proximal posterior calf just inferior to the popliteal fossa. Denies any known injury. He states that if he is resting it is not particularly painful, but is made worse with activity. He does state that in April of 2023 he underwent meniscus repair with Dr. Montez through [facility] [place]. He denies any numbness or tingling to the leg. He has been compliant with his warfarin by his account. He does state that he came to the emergency department yesterday and had an ultrasound obtained which showed no evidence of DVT Related Data Home Medications ?Medication ?Instructions ?Recorded ?Confirmed cholecalciferol (vitamin D3) 25 50 mcg PO DAILY 01/31/22 04/10/23 mcg (1,000 unit) tablet fluoxetine 40 mg capsule 40 mg PO DAILY 01/31/22 04/10/23 warfarin 5 mg tablet 5 mg PO DAILY 01/31/22 04/10/23 ropinirole 0.25 mg tablet 0.25 mg PO DAILY@199904/10/23 04/10/23 ropinirole 0.25 mg tablet 0.5 mg PO BEDTIME 04/10/23 04/10/23 Previous Rx's ?Medication ?Instructions ?Recorded cyclobenzaprine 10 mg tablet 10 mg PO TID PRN muscle spasm #15 12/15/23 tabs oxycodone 5 mg tablet 5 mg PO Q8H PRN pain #6 tabs 12/15/23 diclofenac sodium 1 % topical gel 2 g topical QID #100 grams 12/20/23 oxycodone 5 mg tablet 5 mg PO TID PRN severe pain (scale 12/20/23 score 7-10) #9 tabs Allergies Allergy/AdvReac Type Severity Reaction Status Date / Time No Known Allergies Allergy Verified 02/21/24 06:39 Review of Systems Review of Systems: Yes all other systems are reviewed and are negative PMFSH Past Medical History Attestation statement: The following information was validated with the patient. Source: old records reviewed Medical History Depression DVT (deep venous thrombosis) Social History Social History Household Members: Spouse and Children Housing: House Do you presently have visiting nurse or other home services: No Alcohol intake: current Alcohol intake frequency: holidays/special occasions only Patient Tobacco Use Status: Never used Tobacco Substance Use Type: Marijuana service: No Physical Exam ED Vital Signs: Vital Signs - 24 hr 02/21/24 06:39 Temperature 98.4 F Pulse Rate 63 Respiratory Rate 16 Blood Pressure 115/69 Pulse Oximetry 97 Oxygen Delivery Method Room Air BMI result Body Mass Index 30.8 Appearance: Alert.?Oriented to person, place and time. No acute distress.?Normal affect. Neck: Normal inspection.? Neck supple.?? CVS: Heart sounds normal. Normal heart rate and rhythm.? Pulses normal.?? Respiratory: No respiratory distress.? Lung sounds clear to auscultation bilaterally?? Skin: Skin warm and dry.? Normal skin color.? Extremities: No lower extremity edema.? Pain upon palpation to the proximal gastrocnemius muscle. Full range of motion to the knee. No effusion. No laxity. 2+ PT/DP pulse Neuro: Moves all extremities spontaneously. Sensation intact bilaterally. Ambulates with normal steady gait. Medical Decision Making Medical Decision Making MDM Narrative: Patient is a 54-year-old male presenting for evaluation of pain to the left lower extremity as per HPI. Pertinent physical exam findings as per PE portion of this note. Venous duplex ultrasound obtained yesterday without evidence of DVT he is anticoagulated. Symptoms at this time most concerning for gastrocnemius strain, pain slightly exacerbates with plantar flexion dorsiflexion of the ankle. I have low suspicion for acute ligamentous injury no instability laxity or obvious deformity. No overt fall to suggest a fracture dislocation. No overlying skin changes to suggest acute infection, no varicosities are noted. We did discuss the possibility following up with Orthopedics given his duration of pain, and recent meniscus repair. Over Ana test is negative. Advised heat to the area, Aristides bandage for compression, and outpatient follow-up. Advised he may speak further with his primary care provider and consider possible course of physical therapy. Differential Diagnosis Differential Diagnoses: The differential diagnosis associated with the presentation includes (See narrative above) Independent Interpretation I performed an independent interpretation of an: Ultrasound (No DVT) Radiology Impression Discussion of test interpretation with radiology: I have reviewed the radiologist's reading. Radiologist Impression: US/US venous duplex LE LT IMPRESSION: No evidence of deep venous thrombosis involving the left lower extremity. External Record Review External record reviewed: Outpatient record Prescription Management I considered prescription management with: Pain Medication Considered NSAID, unfortunately can not take secondary to warfarin. Discharge Plan Discharge Clinical Impression: Gastrocnemius strain, left Patient Disposition: Home, Self-Care Instructions: Muscle Strain (ED), R.I.C.E. Treatment (ED), How to Use an Elastic Bandage (ED) Prescriptions: No Action cyclobenzaprine 10 mg tablet 10 mg PO TID PRN (Reason: muscle spasm) Qty: 15 0RF oxycodone 5 mg tablet 5 mg PO Q8H PRN (Reason: pain) Qty: 6 0RF Rx Instructions: Partial Fill upon patient request. ropinirole 0.25 mg tablet 0.25 mg PO DAILY@2000 ropinirole 0.25 mg tablet 0.5 mg PO BEDTIME oxycodone 5 mg tablet 5 mg PO TID PRN (Reason: severe pain (scale score 7-10)) Qty: 9 0RF Rx Instructions: Partial Fill upon patient request. diclofenac sodium 1 % gel 2 g topical QID Qty: 100 0RF Rx Instructions: apply to single elbow, wrist or hand; for hand includes palm/fingers/back of hand warfarin 5 mg tablet 5 mg PO DAILY cholecalciferol (vitamin D3) 25 mcg (1,000 unit) tablet 50 mcg PO DAILY fluoxetine 40 mg capsule 40 mg PO DAILY Referrals: Physician,Unknown J [Physician] - Print Language: Italian
[2024-02-21 07:30] VITALS: BP 109/61; PULSE 62; RESP 18; TEMP 36.6; O2SAT 97
[2024-02-21 07:33] VITALS: BP 109/61; PULSE 62; RESP 18; TEMP 36.6; O2SAT 97
== END 2024-02-21 07:33 | disposition home or self-care (01) ==
PROVIDERS: Emergency Provider Emergency Medicine; PCP Internal Medicine
DX: S86.812A Strain of other muscle(s) and tendon(s) at lower leg level, left leg, initial encounter (principal); X58.XXXA Exposure to other specified factors, initial encounter; Y93.9 Activity, unspecified; Y92.9 Unspecified place or not applicable; Y99.9 Unspecified external cause status; Z79.01 Long term (current) use of anticoagulants; Z79.899 Other long term (current) drug therapy; Z86.718 Personal history of other venous thrombosis and embolism
CPT/HCPCS: 99282; 99284

== ENCOUNTER 2024-03-18 09:06 | Outpatient (AMB) | payer OTHER, SELFPAY ==
[2024-03-18 09:29] VITALS: BP 110/64; PULSE 63; O2SAT 99; BMI 30.6
--- NOTE | 2024-03-18 09:29 | MHC.OFFVIS ---
Vital Signs 03/18/24 09:29 Height 6 ft 2 in Weight 238 lb 8.642 oz BMI 30.6 BP 110/64 Blood Pressure Location Lt brachial Position Sitting Pulse 63 Pulse Source Pulse Oximeter Pulse Oximetry (%) 99 Oxygen Delivery Method Room Air Intake Visit Reasons: joint Pain ? FM,Polyarthralgia Intake Note: Patient is a new patient, was referred by PCP for FM polyarthralgia. Allergies No Known Allergies Allergy (Verified 03/18/24 09:33) Medication List - Last Reconciled 03/18/24 by Bubba Pratt MD atorvastatin 20 mg PO DAILY cholecalciferol (vitamin D3) 50 mcg PO DAILY cyclobenzaprine 10 mg PO TID PRN diclofenac sodium 1% 2 grams topical QID fluoxetine 40 mg PO DAILY oxycodone 5 mg PO Q8H PRN oxycodone 5 mg PO TID PRN ropinirole 0.25 mg PO DAILY@1999 ropinirole 0.5 mg PO BEDTIME warfarin 5 mg PO DAILY HPI Comments Details: This is a 54-year-old male who presents for evaluation of diffuse pain. He states that symptoms have been going on for a few years but they have become worse over the last 3 or 4 months. He has pain in his neck, back, hips, thighs. Significant fatigue. He has history of morbid obesity s/p bariatric surgery. He lost significant weight. His sleep apnea also resolved. He was prescribed an antidepressant by his PCP. He took it for approximately 1 year which helped his would but not his pain. He states that both his mother and sister have Guillain-[place]. [facility] Medical History Depression DVT (deep venous thrombosis) Family History Mother Guillain Spencer? syndrome Sister Guillain Spencer? syndrome Social History Household Members: Spouse and Children Housing: House Do you presently have visiting nurse or other home services: No Alcohol intake: current Alcohol intake frequency: holidays/special occasions only Patient Tobacco Use Status: Never used Tobacco Substance Use Type: Marijuana service: No Review of Systems Const Reports difficulty sleeping, Reports fatigue and Reports weakness Musc Reports back pain, Reports myalgias, Reports arthralgias, Reports muscle weakness and Reports numbness Neuro Reports numbness and Reports weakness Psych Reports abnormal sleep pattern and Reports anxiety Endo Reports fatigue Physical Exam Vital Signs: BMI result Body Mass Index 30.6 Const General: cooperative, healthy appearing and comfortable Nutritional Appearance: overweight Orientation/consciousness: patient oriented x3 Limitations: no limitations HEENT Head: Yes normocephalic and Yes atraumatic Mouth: moist mucous membranes Resp Effort & Inspection: normal respiratory effort and able to speak in complete sentences Cardio Rate: regular rate Rhythm: regular rhythm Skin General skin exam: no rashes or lesions noted Neuro General: patient oriented x3 Extrem Other: Significant deformity of left hand. No active synovitis Multiple fibromyalgia tender points Normal nailfold capillaroscopy Results Reviewed Results Reviewed: Labs in 2023 ERICK/RF/Lyme screen all negative ESR normal Assessment & Plan Assessment & Plan (1) Fibromyalgia, primary: Code(s): M79.7 - Fibromyalgia Category: Medical Plan: This is a 54-year-old male who presents for evaluation of diffuse pain, fatigue. I do not see any evidence of an autoimmune rheumatic disease upon my evaluation Discussed management of fibromyalgia with patient. Is a noninflammatory, non-autoimmune central afferent processing disorder leading to a diffuse pain syndrome. I suggested that patient try to address his underlying psychiatric issues, anxiety/depression. I suggested evaluation by a therapist and/or a psychiatrist. Try to follow sleep hygiene practices. Discuss CBT for sleep with psychotherapist. Patient would benefit from increased physical activity, either through formal physical therapy or by joining a gym. Advised patient that he should start activity slowly and increase as tolerated. Consider low-impact exercises such as walking, swimming, aqua therapy stretching. Follow-up with PCP Plan I spent 30 minutes reviewing patient's chart, evaluating patient, , counseling patient and documenting in the chart Coding Level of Care Code New Pt Level 3 (45795) Diagnoses Fibromyalgia, primary M79.7
== END 2024-03-18 09:55 | disposition home or self-care (01) ==
PROVIDERS: PCP Internal Medicine; Visit Provider Student in an Organized Health Care Education/Training Program
DX: M79.7 Fibromyalgia (principal)
CPT/HCPCS: 99203

== ENCOUNTER → 2024-03-18 09:06 | Outpatient (BNVA) | payer OTHER, SELFPAY | PROVIDERS: PCP Internal Medicine; Visit Provider Student in an Organized Health Care Education/Training Program | DX: M79.7 Fibromyalgia (principal) | CPT/HCPCS: 99202 ==

== ENCOUNTER 2024-05-06 17:16 | Emergency (ER) | payer OTHER, SELFPAY ==
--- NOTE | ~2024-05-06 | XR_ITS ---
EXAMINATION: XR CHEST CLINICAL INFORMATION: Pneumonia COMPARISON: Chest 08/29/2021 TECHNIQUE: Frontal view of the chest was obtained. FINDINGS: No significant abnormality is noted involving the heart, lungs, mediastinum, bony thorax or soft tissues. XR/XR chest 1V IMPRESSION: Unremarkable chest examination. Electronically signed by: Vincent Ng MD 05/06/2024 06:30 [facility]
[2024-05-06 17:36] VITALS: BP 105/71; PULSE 74; RESP 18; TEMP 36.7; O2SAT 97; BMI 30.6
--- NOTE | 2024-05-06 17:49 | ED.GENADULT ---
HPI - General Adult General Chief complaint: Upper Respiratory Symptoms Stated complaint: cough Time Seen by Provider: 05/06/24 19:11 Source: patient Mode of arrival: ambulatory Limitations: no limitations History of Present Illness HPI narrative: This is a 54-year-old man with a past medical history of DVT, mood disorder, orthostatic hypotension who presents for evaluation of cough. Patient states he has had a cough for the last approximate 2 weeks. He reports production of white/clear sputum. States no hemoptysis. He states no chest pain or dyspnea. He states no exertional symptoms or syncope. He States no sore throat. He was having some discomfort in his bilateral anterior neck. He states no trauma. He states no vision changes, speech changes or hearing changes. He states no extremity weakness or pain. He states no back or abdominal pain. He states no GI or symptoms. Related Data Home Medications ?Medication ?Instructions ?Recorded ?Confirmed cholecalciferol (vitamin D3) 25 50 mcg PO DAILY 01/31/22 03/18/24 mcg (1,000 unit) tablet fluoxetine 40 mg capsule 40 mg PO DAILY 01/31/22 03/18/24 warfarin 5 mg tablet 5 mg PO DAILY 01/31/22 03/18/24 ropinirole 0.25 mg tablet 0.25 mg PO DAILY@199904/10/23 03/18/24 ropinirole 0.25 mg tablet 0.5 mg PO BEDTIME 04/10/23 03/18/24 atorvastatin 20 mg tablet 20 mg PO DAILY 03/18/24 03/18/24 Previous Rx's ?Medication ?Instructions ?Recorded cyclobenzaprine 10 mg tablet 10 mg PO TID PRN muscle spasm #15 12/15/23 tabs oxycodone 5 mg tablet 5 mg PO Q8H PRN pain #6 tabs 12/15/23 diclofenac sodium 1 % topical gel 2 g topical QID #100 grams 12/20/23 oxycodone 5 mg tablet 5 mg PO TID PRN severe pain (scale 12/20/23 score 7-10) #9 tabs Allergies Allergy/AdvReac Type Severity Reaction Status Date / Time No Known Allergies Allergy Verified 05/06/24 17:40 Review of Systems Review of Systems: ROS as per [facility] Past Medical History Medical History Depression DVT (deep venous thrombosis) Family History Family History Mother Fer Spencer? syndrome Sister Fer Spencer? syndrome Social History Social History Household Members: Spouse and Children Housing: House Do you presently have visiting nurse or other home services: No Alcohol intake: current Alcohol intake frequency: holidays/special occasions only Patient Tobacco Use Status: Never used Tobacco Substance Use Type: Marijuana Advance Directives: No Advance Directives Information Provided: No Do you have a plan to hurt others: No Plan service: No Physical Exam ED Vital Signs: Vital Signs - 24 hr 05/06/24 17:36 05/06/24 19:25 05/06/24 20:20 Temperature 98.1 F 98.1 F 98.1 F Pulse Rate 74 58 58 Respiratory Rate 18 14 14 Blood Pressure 105/71 109/64 109/64 Pulse Oximetry 97 98 98 Oxygen Delivery Method Room Air Room Air Room Air BMI result Body Mass Index 30.6 Gen: NAD, AOx3 HEENT: NCAT, EOMI, normal conjunctiva, uvula midline without edema, no posterior oropharynx erythema/exudates, no sublingual edema, no nuchal rigidity, mild bilateral tender anterior cervical lymphadenopathy without overlying skin changes, no anterior neck edema/brawny overlying skin changes CV: RRR Pulm: CTAB, no increased work of breathing GI: Soft, NTND Neuro: Grossly non focal Course Course Course Narrative: RME: 54-year-old male presents to ED for URI symptoms. Patient states cough with white phlegm and body aches. Patient states also bilateral neck pain without any trauma. Patient states chest pain only when he coughs. SARs strep chest x-ray ordered Medical Decision Making Medical Decision Making MDM Narrative: Differential diagnosis includes, but is not limited to viral URI, bronchitis, pneumonia, pharyngitis. Patient is afebrile and hemodynamically stable on room air. Exam is benign and reassuring. I reviewed labs and diagnostic imaging as below. On re-examination, patient is well-appearing and in no acute distress. ?There is no indication for further emergent evaluation in this otherwise well-appearing patient as above. ?Patient is provided written and verbal instructions, educational materials, recommendations for outpatient follow-up, strict return precautions and teach back is performed. ?Patient states understanding and agreement with plan of care. ?Patient is discharged home in stable and improved condition. Differential Diagnosis Differential Diagnoses: The differential diagnosis associated with the presentation includes Admission/Observation Consideration of admission/observation: Escalation of care including admission/observation considered Lab Data MDM Lab Attestation statement: I reviewed the patient's lab results. Patient has negative for COVID-19, influenza and RSV. Strep test is negative. Labs: Lab Results 05/06/24 Range/Units 18:48 Influenza Type A (PCR) NEGATIVE (Negative) Influenza Type B (PCR) NEGATIVE (Negative) RSV RNA Qual (PCR) NEGATIVE (Negative) SARS-CoV-2 RNA (RT-PCR) NEGATIVE (Negative) S. pyogenes GrpA PAT Negative (Negative) Independent Interpretation I performed an independent interpretation of an: Plain X-Ray Interpretation: I independently reviewed and interpreted the patient's chest x-ray, which demonstrates no focal consolidation, pleural effusion or pneumothorax Radiology Impression Discussion of test interpretation with radiology: I have reviewed the radiologist's reading. Radiologist Impression: XR/XR chest 1V IMPRESSION: Unremarkable chest examination. Electronically signed by: Vincent Ng MD 05/06/2024 06:30 PM [facility] Dictated By: Vincent Ng MD Signed By: <Electronically signed by Vincent Ng MD in OV> 05/06/24 1830 Discharge Plan Discharge Clinical Impression: Bronchitis Patient Disposition: Home, Self-Care Instructions: Acute Bronchitis (ED) Additional Instructions: You were seen and evaluated in the emergency room. Your vital signs were normal and you did not have fever. You tested negative for strep throat. You tested negative for COVID-19, influenza and RSV. Your chest x-ray showed no findings of pneumonia. Please consider using [id number] medications that contain medicine for cough suppression or cough expectorant. Please continue monitoring herself very closely at home for development of any new fevers, severe pain or difficulty breathing. Please follow-up with your primary care doctor in next 5-7 days for re-evaluation. Return to the emergency room with any new symptoms or concerns including, but not limited to severe pain, difficulty breathing or fever. Prescriptions: No Action cyclobenzaprine 10 mg tablet 10 mg PO TID PRN (Reason: muscle spasm) Qty: 15 0RF oxycodone 5 mg tablet 5 mg PO Q8H PRN (Reason: pain) Qty: 6 0RF Rx Instructions: Partial Fill upon patient request. ropinirole 0.25 mg tablet 0.25 mg PO DAILY@2000 ropinirole 0.25 mg tablet 0.5 mg PO BEDTIME oxycodone 5 mg tablet 5 mg PO TID PRN (Reason: severe pain (scale score 7-10)) Qty: 9 0RF Rx Instructions: Partial Fill upon patient request. diclofenac sodium 1 % gel 2 g topical QID Qty: 100 0RF Rx Instructions: apply to single elbow, wrist or hand; for hand includes palm/fingers/back of hand warfarin 5 mg tablet 5 mg PO DAILY cholecalciferol (vitamin D3) 25 mcg (1,000 unit) tablet 50 mcg PO DAILY fluoxetine 40 mg capsule 40 mg PO DAILY atorvastatin 20 mg tablet 20 mg PO DAILY Interventions: ED Discharge Assessment Last Done: 05/06/24 20:20 Discharge Date/Time: 05/06/24 20:20 Print Language: Indonesian
[2024-05-06 19:04] LABS: IDNOW Serial# 58CA691E; Strep A Nucleic Acid Negative (Negative)
[2024-05-06 19:25] VITALS: BP 109/64; PULSE 58; RESP 14; TEMP 36.7; O2SAT 98
[2024-05-06 19:36] LABS: Influenza A PCR NEGATIVE (Negative); Influenza B PCR NEGATIVE (Negative); Resp Syncy Virus RNA Qual PCR NEGATIVE (Negative); SARS COV2 PCR INHOUSE NEGATIVE (Negative)
[2024-05-06 20:20] VITALS: BP 109/64; PULSE 58; RESP 14; TEMP 36.7; O2SAT 98
== END 2024-05-06 20:20 | disposition home or self-care (01) ==
PROVIDERS: Physician Assistant; Emergency Provider Emergency Medicine
DX: J40 Bronchitis, not specified as acute or chronic (principal); R05.9 Cough, unspecified; Z86.718 Personal history of other venous thrombosis and embolism; Z03.818 Encounter for observation for suspected exposure to other biological agents ruled out
CPT/HCPCS: 0241U; 71045; 87651; 99283

== ENCOUNTER 2024-06-02 10:00 | Outpatient (AMB) | payer OTHER, SELFPAY ==
--- NOTE | 2024-06-02 10:52 | AM.OFFWIN_ITS ---
<Statement entered by Amy Barahona PA-C - 06/02/24 13:45> I was not involved in the care of this patient. RTCUBA Barahona Intake Vital Signs 06/02/24 10:54 Weight 240 lb BP 120/78 Blood Pressure Location Rt brachial Position Sitting Pulse 79 Pulse Source Pulse Oximeter Temp 97.1 F Temp Source Temporal Artery Scan Pulse Oximetry (%) 97 Oxygen Delivery Method Room Air Intake Visit Reasons: EP-sob,sore throat & neck,chest pain & congestion Intake Note: Patient here because he was recently diagnosed with bronchitis and since then he has been having neck pain, chest pain, throat pain and congestion. Patient Tobacco Use Status: Never used Tobacco Allergies No Known Allergies Allergy (Verified 06/02/24 10:55) Do you need a note to return to daycare/school/sports/work: No HPI HPI Comments History of Present Illness Details History The patient is a 54-year-old male presenting with persistent cough and sore throat. The patient reports feeling unwell for about one week, despite initial symptoms presenting more than a month ago. He initially sought care at [facility] on May 06, where comprehensive checks returned negative results for pneumonia or other acute findings. Despite these earlier evaluations and treatment attempts, the cough, described as productive with mucus, has persisted and worsened, leading to disturbed sleep and a new onset of sore throat. The patient reports having difficulty swallowing and experiencing a sensation of fullness in the chest, though he denies fever. Medication history includes DayQuil, which provided no relief, and Benzonatate for the cough, prescribed by a physician assistant buyer at [place], which was also ineffective. The patient notes increased respiratory distress, with shortness of breath and wheezing, though he has no history of asthma or chronic obstructive pulmonary disease (COPD). 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 The patient reports comorbid fibromyalgia and significant past surgical history since 2002. Physical Exam General: Cooperative, healthy appearing, comfortable and no acute distress Orientation/consciousness: Patient oriented x3 Limitations: No limitations Head: Normal to inspection Ears: Hearing grossly normal bilaterally, external ears normal and TM's normal bilaterally Nose: Normal external nose present, Normal nares present and No nasal discharge present Face and sinus: Normal facial exam and Yes sinuses nontender Mouth: Normal oral and palatal mucosa present and moist mucous membranes Throat: Yes tonsils normal, Yes uvula midline. Posterior oropharynx erythema and red back there Eyes: Appearance normal, both eyes and all related structures Neck: Normal visual inspection Respiratory: Clear but dim to auscultation bilaterally. Normal respiratory effort, able to speak in complete sentences, Actively coughing, no respiratory distress, not tachypneic, no tripod positioning and no use of accessory muscles. Shortness of breath and wheezing noted Cardiovascular: Regular rate and rhythm. Normal S1 and S2 Skin: No rashes or lesions noted Neuro: Patient oriented x3 Extremities: Normal to inspection and Yes no clubbing, cyanosis or edema PFSH Medical History Depression DVT (deep venous thrombosis) Family History Mother Guillain Spencer? syndrome Sister Guillain Spencer? syndrome Social History Household Members: Spouse and Children Housing: House Do you presently have visiting nurse or other home services: No Alcohol intake: current Alcohol intake frequency: holidays/special occasions only Patient Tobacco Use Status: Never used Tobacco Substance Use Type: Marijuana service: No Review of Systems Const All systems reviewed & are unremarkable except as noted in HPI and below Physical Exam Vital Signs: Last Vital Signs Temp 97.1 F 06/02/24 10:54 Pulse 79 06/02/24 10:54 BP 120/78 06/02/24 10:54 Pulse Ox 97 06/02/24 10:54 Oxygen Delivery Method Room Air 06/02/24 10:54 Assessment & Plan Assessment & Plan (1) URI, acute: Code(s): J06.9 - Acute upper respiratory infection, unspecified Plan: Plan 1. Acute Bronchitis: - Order a chest x-ray to rule out the development of pneumonia. Prescribed Doxycycline, will add Augmentin if PNA found on CXR. Also sent albuterol inhaler for shortness of breath and explained how to use. Patient was informed and verbally consented to the use of an ambient scribe for clinic note documentation during this visit Orders: Orders XR chest 2V Today R05.9 - Cough, unspecified Medications: New doxycycline hyclate 100 mg PO BID 10 tabs 0RF albuterol sulfate 90 mcg/actuation 2 puffs inhalation Q6H PRN 8.5 grams 0RF shortness of breath or wheezing or cough Coding Level of Care Code New Pt Level 4 (71429) Diagnoses URI, acute J06.9
[2024-06-02 10:54] VITALS: BP 120/78; PULSE 79; TEMP 36.2; O2SAT 97
== END 2024-06-02 11:25 | disposition home or self-care (01) ==
PROVIDERS: Visit Provider Physician Assistant
DX: J06.9 Acute upper respiratory infection, unspecified (principal)

== ENCOUNTER 2024-12-22 17:47 | Emergency (ER) | payer OTHER, SELFPAY ==
--- NOTE | ~2024-12-22 | CT_ITS ---
CLINICAL HISTORY: Pelvic vein thrombosis? CT abdomen and pelvis with contrast Comparison: None provided Findings: The lung bases are clear. Unremarkable gallbladder and solid organs. No urolithiasis. No bowel obstruction, pneumoperitoneum, or pneumatosis. Pelvic contents unremarkable. Normal appendix. Large ascending and transverse colon stool burden. The bones are intact. Visualized pelvic veins grossly unremarkable. IMPRESSION: No acute findings. Large ascending and transverse colon stool burden may represent constipation. Visualized pelvic veins are grossly unremarkable. No evidence of pelvic vein thrombosis. This document has been electronically signed by: Giovanni Lieberman MD on 12/22/2024 22:41:47
--- NOTE | ~2024-12-22 | US_ITS ---
CLINICAL HISTORY: pain, swelling, hx DVT, stopped AC Venous duplex ultrasound bilateral lower extremity COMPARISON: None provided. FINDINGS: The visualized deep veins are fully compressible with normal Doppler color flow and spectral tracings. No popliteal cyst. IMPRESSION: 1. Negative for bilateral lower extremity deep vein thrombosis. This document has been electronically signed by: Khris Griffin MD on 12/22/2024 20:03:13
[2024-12-22 18:16] VITALS: BP 124/70; PULSE 81; RESP 16; TEMP 36.1; O2SAT 100; BMI 27.6
--- NOTE | 2024-12-22 18:22 | ECG_ITS ---
Test Reason : swelling Blood Pressure : */* mmHG Vent. Rate : 60 BPM Atrial Rate : 60 BPM P-R Int : 162 ms QRS Dur : 100 ms QT Int : 436 ms P-R-T Axes : 1 -2 8 degrees QTcB Int : 436 ms Normal sinus rhythm Cannot rule out Anterior infarct , age undetermined Abnormal ECG When compared with ECG of 10-Apr-2023 00:09, No significant change was found Referred By: Generic ED Physician Electronically Signed By: FRIEDA LUBIN MD
[2024-12-22 18:39] LABS: MANUAL DIFF FLAG NO
[2024-12-22 18:41] LABS: Hematocrit 41.4 % (42.0-52.0); Hemoglobin 14.2 g/dl (14.0-18.0); Imm Gran Abs Auto 0.03 X10*3/uL (0.00-0.03); Imm Gran Pct Auto 0.4 % (0.0-0.4); Lymphocytes Absolute Auto 2.0 X10*3/uL (1.2-4.9); Mean Corpuscular HGB Conc 34.3 g/dl (31.0-36.0); Mean Corpuscular Hemoglobin 31.4 pg (27.0-33.0); Mean Corpuscular Volume 91.6 fL (80.0-98.0); NRBC Abs Auto 0.000 X10*3/uL (0.0-0.012); NRBC Pct Auto 0.0 /100WBC (0.0-0.2); Platelet Count 177 X10*3/uL (160-400); Red Blood Count 4.52 X10*6/uL (4.60-5.80); White Blood Count 7.5 X10*3/uL (4.8-10.8)
--- NOTE | 2024-12-22 18:47 | ED.GENADULT ---
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 Patient denies any shortness a breath no abdominal pain no alcohol use or liver problems in the past patient never had similar swelling in the past Related Data Home Medications ?Medication ?Instructions ?Recorded ?Confirmed cholecalciferol (vitamin D3) 25 50 mcg PO DAILY 01/31/22 03/18/24 mcg (1,000 unit) tablet warfarin 5 mg tablet 5 mg PO DAILY 01/31/22 03/18/24 ropinirole 0.25 mg tablet 0.5 mg PO BEDTIME 04/10/23 03/18/24 atorvastatin 20 mg tablet 20 mg PO DAILY 03/18/24 03/18/24 Previous Rx's ?Medication ?Instructions ?Recorded cyclobenzaprine 10 mg tablet 10 mg PO TID PRN muscle spasm #15 12/15/23 tabs albuterol sulfate 90 mcg/actuation 2 puff inhalation Q6H PRN 06/02/24 aerosol inhaler shortness of breath or wheezing or cough #8.5 grams doxycycline hyclate 100 mg capsule 100 mg PO BID #10 caps 06/02/24 furosemide 20 mg tablet (Lasix) 20 mg PO QAM #30 tabs 12/22/24 polyethylene glycol 3350 17 17 g PO DAILY #510 grams 12/22/24 gram/dose oral powder (Miralax) Allergies Allergy/AdvReac Type Severity Reaction Status Date / Time No Known Allergies Allergy Verified 12/22/24 18:20 Review of Systems Review of Systems: Yes all other systems are reviewed and are negative PMFSH Past Medical History Medical History Depression DVT (deep venous thrombosis) Family History Family History Mother Guillain Spencer? syndrome Sister Guillain Spencer? syndrome Social History Social History Household Members: Spouse and Children Housing: House Do you presently have visiting nurse or other home services: No Alcohol intake: current Alcohol intake frequency: 3 or more drinks per day Alcohol type: other Patient Tobacco Use Status: Never used Tobacco Smoked in Last 30 Days: Yes Use of substances other than those prescribed or required for medical reasons: Yes Substance Use Type: Marijuana Advance Directives: No Advance Directives Information Provided: No Do you have a plan to hurt others: No Plan service: No Physical Exam ED Vital Signs: Vital Signs - 24 hr 12/22/24 18:16 12/22/24 20:04 12/22/24 23:00 Temperature 97 F 98.7 F 98.5 F Pulse Rate 81 58 59 Respiratory Rate 16 16 15 Blood Pressure 124/70 113/69 113/65 Pulse Oximetry 100 97 99 Oxygen Delivery Method Room Air Room Air Room Air 12/22/24 23:51 12/23/24 00:01 Temperature 0 F L Pulse Rate 64 64 Respiratory Rate 18 18 Blood Pressure 123/72 123/72 Pulse Oximetry 99 99 Oxygen Delivery Method Room Air Room Air BMI result Body Mass Index 27.6 Appearance: Alert. Oriented X3. No acute distress. Eyes: PERRLA, No Nystagmus ENT: Pharynx normal. Oral Mucosa moist Neck: Normal inspection. Neck supple. CVS: Normal heart rate and rhythm. Pulses normal. Respiratory: No respiratory distress. Equal air entry bilateral, no wheezing/rales/rhonchi Abdomen: Soft and nontender. Bowel sounds are present, no mass palpable, no CVA tenderness Skin: Skin warm and dry. Normal skin color. Normal skin turgor. Extremities: 3+ lower extremity edema. No calf tenderness Neuro: Oriented X 3. No motor deficit. No sensory deficit.No cerebellar signs , cranial nerves II-XII intact Course Course Course Narrative: This is an RME performed by Monalisa White CNP: Additional HPI, ROS, PE not included below will be deferred to primary provider. patient is a 54-year-old male who presents emergency department for evaluation. He has been experiencing bilateral lower extremity swelling for the past 2-3 days, admits to a history of DVT took himself off warfarin approximately 2 weeks ago reporting that nobody had really talked to him about it nor further mentioned it so he decided to stop taking it. Denies chest pain, shortness of breath difficulty breathing. Recent car travel 2.5 hours. Additionally states he has gained several lb over the past few days. Medications Administered Discontinued Medications Generic Name Dose Route Start Last Admin Trade Name Jonas PRN Reason Stop Dose Admin Bisacodyl 10 mg 12/22/24 23:45 12/23/24 00:01 Bisacodyl 5 Mg Tablet. PO 12/22/24 23:46 Not Given ONCE ONE Iohexol 85 ml 12/22/24 21:56 12/22/24 21:56 Iohexol 350 Mg/Ml 100 Ml Infus..Btl IV 12/22/24 21:57 85 ml ONCE ONE Administration Magnesium Hydroxide 30 ml 12/22/24 23:45 12/23/24 00:01 Milk Of Magnesia 30 Ml Oral.Susp PO 12/22/24 23:46 Not Given ONCE ONE Medical Decision Making Medical Decision Making MDM Narrative: Patient has significant leg edema workup negative for DVT CHF or liver failure as the cause for leg edema. CT scan of the abdomen showed significant amount of stool in the abdomen there was no venous blood clot as the cause likely because of the pressure of the stool patient does have venous congestion in the lower extremities. Will prescribe Lasix advised to follow with logging truck driver for further management about recurrent DVT patient advised to continue Coumadin for now till further diagnose is Differential Diagnosis Differential Diagnoses: The differential diagnosis associated with the presentation includes Pelvic mass/pelvic vein thrombosis/dependent edema/liver failure/renal failure/CHF Lab Data MDM Lab Attestation statement: I reviewed the patient's lab results. 12/22/24 18:36 12/22/24 18:36 Labs: Lab Results 12/22/24 12/22/24 Range/Units 18:36 21:48 WBC 7.5 (4.8-10.8) X10*3/uL RBC 4.52 L (4.60-5.80) X10*6/uL Hgb 14.2 (14.0-18.0) g/dl Hct 41.4 L (42.0-52.0) % MCV 91.6 (80.0-98.0) fL MCH 31.4 (27.0-33.0) pg MCHC 34.3 (31.0-36.0) g/dl RDW 14.3 (11.0-16.0) % Plt Count 177 (160-400) X10*3/uL MPV 9.5 (9.4-12.4) fL Immature Gran % (Auto) 0.4 (0.0-0.4) % Neut % (Auto) 60.4 (45-73) % Lymph % (Auto) 26.0 (20-40) % [place] % (Auto) 6.0 (2-11) % Eos % (Auto) 6.4 H (0-4) % Baso % (Auto) 0.8 (0-2) % Lymph # (Auto) 2.0 (1.2-4.9) X10*3/uL [place] # (Auto) 0.5 (0.1-1.2) X10*3/uL Eos # (Auto) 0.5 H (0.0-0.4) X10*3/uL Baso # (Auto) 0.1 (0.0-0.2) X10*3/uL Abs Immat Gran (auto) 0.03 (0.00-0.03) X10*3/uL Absolute Neuts (auto) 4.6 (2.0-8.3) x10*3/uL Absolute Nucleated RBC 0.000 (0.0-0.012) X10*3/uL Nucleated RBC % (auto) 0.0 (0.0-0.2) /100WBC PT 12.2 (10.9-12.4) SEC INR 1.1 (0.9-1.1) APTT 30.0 (26.0-36.8) SEC Sodium 140 (135-145) mmol/L Potassium 4.5 (3.3-5.1) mmol/L Chloride 104 (96-108) mmol/L Carbon Dioxide 28 (22-29) mmol/L Anion Gap 13 (12-20) BUN 7 L (9-16) mg/dL Creatinine 0.92 (0.5-1.4) mg/dL Estim Creat Clear Calc 105.4 Estimated GFR > 60 Random Glucose 85 (60-115) mg/dL Calcium 8.8 (8.4-10.2) mg/dL Magnesium 2.2 (1.6-2.6) mg/dL Total Bilirubin 0.6 (0.0-1.0) mg/dL AST 14 (5-37) U/L ALT 11 (0-40) U/L Alkaline Phosphatase 60 (39-117) U/L Troponin I High Sens < 2.7 (<3.5-35.0) ng/L B-Natriuretic Peptide 38 (<100) pg/mL Total Protein 6.8 (6.5-8.0) g/dL Albumin 4.5 (3.5-5.0) g/dL Independent Interpretation I performed an independent interpretation of an: CT Scan Radiology Impression Discussion of test interpretation with radiology: I have reviewed the radiologist's reading. Radiologist Impression: [address] [address] [address] Scan Report Signed Patient: Polo Escobar MR#: [id number] : 1970 Acct:[id number] Age/Sex: 54 / M ADM Date: 12/22/24 Loc: HO.ED Attending Dr: Ordering Physician: Melchor Shelton MD Date of Service: 12/22/24 Procedure(s): CT abdomen pelvis w IV con Accession Number(s): [id number] cc: Luis Fernando Sinha MD; Melchor Shelton MD~ Report Number: [id number]: Total DLP = 784.00 mGy-cm CLINICAL HISTORY: Pelvic vein thrombosis? CT abdomen and pelvis with contrast Comparison: None provided Findings: The lung bases are clear. Unremarkable gallbladder and solid organs. No urolithiasis. No bowel obstruction, pneumoperitoneum, or pneumatosis. Pelvic contents unremarkable. Normal appendix. Large ascending and transverse colon stool burden. The bones are intact. Visualized pelvic veins grossly unremarkable. IMPRESSION: No acute findings. Large ascending and transverse colon stool burden may represent constipation. Visualized pelvic veins are grossly unremarkable. No evidence of pelvic vein thrombosis. This document has been electronically signed by: Giovanni Lieberman MD on 12/22/2024 22:41:47 Discharge Plan Discharge Clinical Impression: Leg edema, Constipation Patient Disposition: Home, Self-Care Instructions: Constipation (ED), Leg Edema (ED) Additional Instructions: Cause of your leg swelling is not clear likely from large amount of stool/dependent edema Keep your legs elevated Water pill as advised for severe leg swelling Follow up with logging truck driver about your blood thinner use Prescriptions: New furosemide [Lasix] 20 mg tablet 20 mg PO QAM Qty: 30 0RF polyethylene glycol 3350 [Miralax] 17 gram/dose powder 17 g PO DAILY Qty: 510 0RF No Action doxycycline hyclate 100 mg capsule 100 mg PO BID Qty: 10 0RF cyclobenzaprine 10 mg tablet 10 mg PO TID PRN (Reason: muscle spasm) Qty: 15 0RF ropinirole 0.25 mg tablet 0.5 mg PO BEDTIME warfarin 5 mg tablet 5 mg PO DAILY cholecalciferol (vitamin D3) 25 mcg (1,000 unit) tablet 50 mcg PO DAILY atorvastatin 20 mg tablet 20 mg PO DAILY albuterol sulfate 90 mcg/actuation HFA aerosol inhaler 2 puff inhalation Q6H PRN (Reason: shortness of breath or wheezing or cough) Qty: 8.5 0RF Referrals: Marguerite Nicole MD [Physician, Hematology & Oncology] Referral Note: Recurrent DVT Interventions: ED Discharge Assessment Last Done: 12/23/24 00:01 Discharge Date/Time: 12/23/24 00:03 Print Language: Tamazight
[2024-12-22 18:56] LABS: Alanine Aminotransferase 11 U/L (0-40); Albumin Level 4.5 g/dL (3.5-5.0); Alkaline Phosphatase 60 U/L (39-117); Anion Gap 13 (12-20); Aspartate Amino Transferase 14 U/L (5-37); Blood Urea Nitrogen 7 mg/dL (9-16); Calcium 8.8 mg/dL (8.4-10.2); Carbon Dioxide 28 mmol/L (22-29); Chloride 104 mmol/L (96-108); Creatinine Clr Calc Pharmacy 105.4; Estimated Glomerular Filt Rate > 60; Magnesium 2.2 mg/dL (1.6-2.6); Potassium 4.5 mmol/L (3.3-5.1); Sodium 140 mmol/L (135-145); Total Protein 6.8 g/dL (6.5-8.0)
[2024-12-22 19:02] LABS: B Type Natriuretic Peptide 38 pg/mL (<100)
[2024-12-22 19:06] LABS: Troponin-I High Sensitivity < 2.7 ng/L (<3.5-35.0)
[2024-12-22 20:04] VITALS: BP 113/69; PULSE 58; RESP 16; TEMP 37.1; O2SAT 97
[2024-12-22] MEDS: iohexoL 350 MG/ML 100 ML INFUS..BTL 85 ML IV (21:56)
[2024-12-22 22:09] LABS: INTERNATIONAL NORM RATIO 1.1 (0.9-1.1); Prothrombin Time 12.2 SEC (10.9-12.4)
[2024-12-22 22:12] LABS: Partial Thromboplastin Time 30.0 SEC (26.0-36.8)
[2024-12-22 23:00] VITALS: BP 113/65; PULSE 59; RESP 15; TEMP 36.9; O2SAT 99
[2024-12-22 23:51] VITALS: BP 123/72; PULSE 64; RESP 18; O2SAT 99
--- NOTE | 2024-12-22 23:59 | PC.NURSE ---
attempting to medicate pt upon DC, pt refused all medications stating I'm all set with all that, I can take something at home DC instructions verbalized and signed by pt
[2024-12-23 00:01] VITALS: BP 123/72; PULSE 64; RESP 18; TEMP -17.7; TEMP 0; O2SAT 99
== END 2024-12-23 00:03 | disposition home or self-care (01) ==
PROVIDERS: Emergency Provider Internal Medicine; PCP Internal Medicine
DX: R60.0 Localized edema (principal); K59.00 Constipation, unspecified; R10.2 Pelvic and perineal pain; R94.31 Abnormal electrocardiogram [ECG] [EKG]; Z79.899 Other long term (current) drug therapy; Z79.01 Long term (current) use of anticoagulants
CPT/HCPCS: 36415; 74177; 80053; 83735; 83880; 84484; 85025; 85610; 85730; 93005; 93970; 99284; Q9967

== ENCOUNTER → 2024-12-22 18:22 | Outpatient (BNV) | payer OTHER, SELFPAY | PROVIDERS: Emergency Provider Internal Medicine; PCP Internal Medicine; Visit Provider Internal Medicine Cardiovascular Disease | DX: R94.31 Abnormal electrocardiogram [ECG] [EKG] (principal); R22.43 Localized swelling, mass and lump, lower limb, bilateral | CPT/HCPCS: 93010 ==

== ENCOUNTER → 2024-12-22 18:48 | Outpatient (BNV) | payer OTHER, SELFPAY | PROVIDERS: Emergency Provider Internal Medicine; PCP Internal Medicine; Visit Provider Radiology Diagnostic Radiology | DX: K56.41 Fecal impaction (principal); M79.605 Pain in left leg; M79.604 Pain in right leg; R22.43 Localized swelling, mass and lump, lower limb, bilateral; Z86.718 Personal history of other venous thrombosis and embolism | CPT/HCPCS: 74177; 93970 ==

== ENCOUNTER 2025-02-03 11:50 | Emergency (ER) | payer OTHER, SELFPAY ==
--- NOTE | ~2025-02-03 | XR_ITS ---
EXAMINATION: XR KNEE 4 OR MORE VIEWS LEFT HISTORY: pain since October COMPARISON: Comparison is made with the prior examination dated 04/09/2023. FINDINGS: Four views of the left knee are submitted. Osseous mineralization is normal. There is no fracture or dislocation. The joint spaces are preserved. There are vascular calcifications. There is no joint effusion. XR/XR knee LT 4V IMPRESSION: Unremarkable examination of the left knee. Electronically signed by: Antonio Garcia MD 02/03/2025 12:52 PM EDT
[2025-02-03 12:09] VITALS: BP 122/58; PULSE 79; RESP 16; TEMP 36.9; O2SAT 100; BMI 27.0
--- NOTE | 2025-02-03 12:10 | ED.GENADULT ---
HPI - General Adult General Chief complaint: Extremity Injury, Lower Stated complaint: L knee pain, R toes numb Related Data Home Medications ?Medication ?Instructions ?Recorded ?Confirmed cholecalciferol (vitamin D3) 25 50 mcg PO DAILY 01/31/22 03/18/24 mcg (1,000 unit) tablet warfarin 5 mg tablet 5 mg PO DAILY 01/31/22 03/18/24 ropinirole 0.25 mg tablet 0.5 mg PO BEDTIME 04/10/23 03/18/24 atorvastatin 20 mg tablet 20 mg PO DAILY 03/18/24 03/18/24 Previous Rx's ?Medication ?Instructions ?Recorded cyclobenzaprine 10 mg tablet 10 mg PO TID PRN muscle spasm #15 12/15/23 tabs albuterol sulfate 90 mcg/actuation 2 puff inhalation Q6H PRN 06/02/24 aerosol inhaler shortness of breath or wheezing or cough #8.5 grams doxycycline hyclate 100 mg capsule 100 mg PO BID #10 caps 06/02/24 furosemide 20 mg tablet (Lasix) 20 mg PO QAM #30 tabs 12/22/24 polyethylene glycol 3350 17 17 g PO DAILY #510 grams 12/22/24 gram/dose oral powder (Miralax) Allergies Allergy/AdvReac Type Severity Reaction Status Date / Time No Known Allergies Allergy Verified 02/03/25 12:11 [facility] Past Medical History Medical History Depression DVT (deep venous thrombosis) Family History Family History Mother Guillain Spencer? syndrome Sister Guillain Spencer? syndrome Social History Social History Household Members: Spouse and Children Housing: House Do you presently have visiting nurse or other home services: No Alcohol intake: current Alcohol intake frequency: 3 or more drinks per day Alcohol type: other Patient Tobacco Use Status: Never used Tobacco Substance Use Type: Marijuana Advance Directives: No Advance Directives Information Provided: No Do you have a plan to hurt others: No Plan service: No Physical Exam ED Vital Signs: BMI result Body Mass Index 27.0 Course Course Course Narrative: This is a rapid medical exam performed by Mark Rogers NP: Additional HPI, ROS, PE not included below will be deferred to primary provider. Patient is a 54-year-old male with history of gastric sleeve, fibromyalgia presenting with complaint of pain from left hip down to mid left lower leg since November 14. States he stepped wrong and felt like something exploded in my knee. Also has been having numbness to toes of right foot. Stopped warfarin on his own 3 mos ago, calling it poisons. Has an appt with [facility] ortho but has not gone yet. Had x-rays in November at [facility] in [place]. Plan: left knee xray Patient left the emergency department before myself or any of the other clinicians could review or explain physical exam findings, test results, need or lack there of for additional testing, treatment options, or a treatment plan. Discharge Plan Discharge Clinical Impression: Chronic pain of left knee Patient Disposition: Left W/O Completing Treatment Prescriptions: No Action doxycycline hyclate 100 mg capsule 100 mg PO BID Qty: 10 0RF cyclobenzaprine 10 mg tablet 10 mg PO TID PRN (Reason: muscle spasm) Qty: 15 0RF ropinirole 0.25 mg tablet 0.5 mg PO BEDTIME furosemide [Lasix] 20 mg tablet 20 mg PO QAM Qty: 30 0RF polyethylene glycol 3350 [Miralax] 17 gram/dose powder 17 g PO DAILY Qty: 510 0RF warfarin 5 mg tablet 5 mg PO DAILY cholecalciferol (vitamin D3) 25 mcg (1,000 unit) tablet 50 mcg PO DAILY atorvastatin 20 mg tablet 20 mg PO DAILY albuterol sulfate 90 mcg/actuation HFA aerosol inhaler 2 puff inhalation Q6H PRN (Reason: shortness of breath or wheezing or cough) Qty: 8.5 0RF Discharge Date/Time: 02/03/25 17:37
== END 2025-02-03 17:37 | disposition left against medical advice (07) ==
PROVIDERS: Emergency Provider Emergency Medicine; PCP Internal Medicine
DX: M25.562 Pain in left knee (principal); R20.0 Anesthesia of skin; Z79.899 Other long term (current) drug therapy
CPT/HCPCS: 73564; 99281; 99283

== ENCOUNTER → 2025-02-03 12:15 | Outpatient (BNV) | payer MEDICAID, SELFPAY | PROVIDERS: PCP Internal Medicine; Visit Provider Radiology Diagnostic Radiology | DX: M25.562 Pain in left knee (principal) | CPT/HCPCS: 73564 ==

== ENCOUNTER 2025-02-09 11:05 | Outpatient (AMB) | payer OTHER, SELFPAY ==
--- NOTE | 2025-02-09 11:16 | MHC.OFFVIS ---
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 Accompanied by: Spouse Allergies No Known Allergies Allergy (Verified 02/09/25 11:16) Medication List - Last Reconciled 02/09/25 by Kalee Batres MD albuterol sulfate 90 mcg/actuation 2 puffs inhalation Q6H PRN cholecalciferol (vitamin D3) 50 mcg PO DAILY cyclobenzaprine 10 mg PO TID PRN gabapentin 100 mg PO BEDTIME gabapentin 600 mg (2 x 300 mg) PO BEDTIME polyethylene glycol 3350 (Miralax) 17 grams PO DAILY ropinirole 0.5 mg PO BEDTIME tramadol 50 mg PO TID PRN trazodone 150 mg PO BEDTIME PRN HPI Comments Details: 54y/o male comes for evaluation of numbness and tingling in yinka distal LE which he started noticing about 1 month ago. He reports it started as a sharp pain in his toes and progressed to lower 1/3 of his legs. He reports feeling like walking on cotton , has poor balance and has had falls. He has h/o restless leg syndrome and is on medications - but says this is different. He reports fh/o neuropathy in his 2 siblings and his mother . He had a gastric sleeve surgery in 2016 and lost 160 lbs . 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 [facility] Medical History Numbness and tingling of both legs Hyperreflexic Low back pain Neuropathy Mild persistent asthma without complication Other specified polyneuropathies RLS (restless legs syndrome) Anxiety and depression Venous insufficiency of left lower extremity Recurrent deep vein thrombosis of both lower extremities Depression DVT (deep venous thrombosis) Surgical History S/P gastric sleeve procedure Family History Mother Guillain Spencer? syndrome Sister Guillain Spencer? syndrome Social History Household Members: Spouse and Children Housing: House Do you presently have visiting nurse or other home services: No Alcohol intake: current Alcohol intake frequency: 3 or more drinks per day Alcohol type: other Patient Tobacco Use Status: Never used Tobacco Substance Use Type: Marijuana service: No Review of Systems Neuro Reports Sensory deficit (Neuro) Physical Exam Vital Signs: Last Vital Signs Pulse 64 02/09/25 11:17 BP 120/76 02/09/25 11:17 Pulse Ox 99 02/09/25 11:17 Oxygen Delivery Method Room Air 02/09/25 11:17 BMI result Body Mass Index 27.5 Const General: cooperative, comfortable and no acute distress Nutritional Appearance: average body habitus Orientation/consciousness: patient oriented x3 Eyes Pupils: Equal, round and reactive pupils present Neuro General: patient oriented x3, moves all extremities and no focal motor deficits Cranial nerves: Yes Facial sensation intact/muscles of mastication intact, Yes Equal, round and reactive pupils present, Yes Bilaterally intact EOM present, Yes Nystagmus not present, Yes Normal facial strength present, Yes Midline tongue present, Yes Symmetric palate elevation present and Yes Ability to bilaterally elevate shoulders present Cognition (Neuro): normal cognition Gait exam (Neuro): Antalgic gait present Motor exam (neuro): 5/5 motor strength present throughout and Normal motor muscle tone present throughout Sensory Exam: Sensory deficit (Neuro) and Abnormal lower extremity sensory exam (decreased PP and light touch vibration in yinka LE upto lower 1/3 leg .) Deep tendon reflexes (DTR's): Right triceps reflex intensity grade: 2+, Left triceps reflex intensity grade: 2+, Rt Biceps (C5, C6): 2+, Left biceps reflex intensity grade: 2+, Right brachioradialis reflex intensity grade: 2+, Left brachioradialis reflex intensity grade: 2+, Right patellar reflex intensity grade: 4+, Left patellar reflex intensity grade: 4+, Right ankle reflex intensity grade: 0 and Left ankle reflex intensity grade: 0 Coordination: [id number] test normal Assessment & Plan Assessment & Plan (1) Numbness and tingling of both legs: Code(s): R20.0 - Anesthesia of skin; R20.2 - Paresthesia of skin Category: Medical (2) Neuropathy: Code(s): G62.9 - Polyneuropathy, unspecified Category: Medical (3) Hyperreflexic: Code(s): R29.2 - Abnormal reflex Category: Medical (4) Low back pain: Code(s): M54.50 - Low back pain, unspecified Category: Medical Plan I will evaluate him with MRI LS spine EMG NCS LE Check his Vit B12 B 6 ESR ERICK CBC CMP TSH etc to r/o reversible causes Increase gabapentin 300 mg 1-2 tabs qhs Orders: Orders TSH reflex Free T4 Today G62.9 - Polyneuropathy, unspecified Ferritin Today G62.9 - Polyneuropathy, unspecified Vitamin B6 Today G62.9 - Polyneuropathy, unspecified MR lumbar spine wo con Today M54.50 - Low back pain, unspecified, R20.0 - Anesthesia of skin, R20.2 - Paresthesia of skin, R29.2 - Abnormal reflex NE electromyogram (EMG) Today R20.0 - Anesthesia of skin, R20.2 - Paresthesia of skin Vitamin B12 and Folate Today G62.9 - Polyneuropathy, unspecified Complete Blood Count Auto Diff Today G62.9 - Polyneuropathy, unspecified Comprehensive Met. Panel Today G62.9 - Polyneuropathy, unspecified Erythrocyte Sedimentation Rate Today G62.9 - Polyneuropathy, unspecified Vitamin D 25-OH (D2 and D3) Today G62.9 - Polyneuropathy, unspecified EIRCK Reflex Titer and Pattern Today G62.9 - Polyneuropathy, unspecified Vitamin E Today G62.9 - Polyneuropathy, unspecified NE nerve conduction velocity Today R20.0 - Anesthesia of skin, R20.2 - Paresthesia of skin Medications: New gabapentin 600 mg (2 x 300 mg) PO BEDTIME 60 caps 6RF Coding Level of Care Code New Pt Level 4 (54458) Complex EM visit Add On G2211 Diagnoses Numbness and tingling of both legs R20.0; R20.2 Neuropathy G62.9 Hyperreflexic R29.2 Low back pain M54.50
[2025-02-09 11:17] VITALS: BP 120/76; PULSE 64; O2SAT 99; BMI 27.5
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
--- OUTSIDE RECORDS SUMMARY | 2025-02-09 12:39 | XMS_ITS ---
Author Name [facility] Organization Unknown Care Team Organization Name Specialty Phone Email Start Date End Da te [facility] Luis Fernando Sinha Primary Care 08/29/202201/22 [facility] 05/01/2022 02/10/2024
== END 2025-02-09 12:22 | disposition home or self-care (01) ==
LOC: HO.HSMS 11:06
PROVIDERS: PCP Internal Medicine; Visit Provider Psychiatry & Neurology Neurology
DX: R20.0 Anesthesia of skin (principal); R20.2 Paresthesia of skin; G62.9 Polyneuropathy, unspecified; R29.2 Abnormal reflex; M54.50 Low back pain, unspecified
CPT/HCPCS: 99204

== ENCOUNTER → 2025-02-09 11:05 | Outpatient (BNVA) | payer OTHER, SELFPAY | PROVIDERS: PCP Internal Medicine; Visit Provider Psychiatry & Neurology Neurology | DX: R20.0 Anesthesia of skin (principal); R20.2 Paresthesia of skin; G62.9 Polyneuropathy, unspecified; R29.2 Abnormal reflex; M54.50 Low back pain, unspecified | CPT/HCPCS: 99202 ==

== ENCOUNTER 2025-02-15 06:51 | Outpatient (REF) | payer OTHER, SELFPAY ==
[2025-02-15 07:08] LABS: MANUAL DIFF FLAG NO
[2025-02-15 07:16] LABS: Hematocrit 43.0 % (42.0-52.0); Hemoglobin 14.4 g/dl (14.0-18.0); Imm Gran Abs Auto 0.01 X10*3/uL (0.00-0.03); Imm Gran Pct Auto 0.1 % (0.0-0.4); Lymphocytes Absolute Auto 2.1 X10*3/uL (1.2-4.9); Mean Corpuscular HGB Conc 33.5 g/dl (31.0-36.0); Mean Corpuscular Hemoglobin 31.4 pg (27.0-33.0); Mean Corpuscular Volume 93.7 fL (80.0-98.0); NRBC Abs Auto 0.000 X10*3/uL (0.0-0.012); NRBC Pct Auto 0.0 /100WBC (0.0-0.2); Platelet Count 179 X10*3/uL (160-400); Red Blood Count 4.59 X10*6/uL (4.60-5.80); White Blood Count 7.0 X10*3/uL (4.8-10.8)
[2025-02-15 07:54] LABS: Alanine Aminotransferase 11 U/L (0-40); Albumin Level 4.1 g/dL (3.5-5.0); Alkaline Phosphatase 65 U/L (39-117); Anion Gap 11 (12-20); Aspartate Amino Transferase 18 U/L (5-37); Blood Urea Nitrogen 9 mg/dL (9-16); Calcium 8.7 mg/dL (8.4-10.2); Carbon Dioxide 30 mmol/L (22-29); Chloride 104 mmol/L (96-108); Estimated Glomerular Filt Rate > 60; Potassium 4.3 mmol/L (3.3-5.1); Sodium 141 mmol/L (135-145); Total Protein 6.2 g/dL (6.5-8.0)
[2025-02-15 08:15] LABS: Ferritin 41 ng/mL (20-250)
[2025-02-15 08:21] LABS: Folate 3.7 ng/mL (> or = 4.0); Vitamin B12 190 pg/mL (200-900)
[2025-02-17 18:53] LABS: Anti Nuclear Antibody Screen NEGATIVE (NEGATIVE)
[2025-02-19 17:18] LABS: Vitamin D 25-OH, D2 <4 ng/mL; Vitamin D 25-OH, D3 37 ng/mL; Vitamin D 25-OH, Total 37 ng/mL (30-100)
== END 2025-02-15 06:52 | disposition home or self-care (01) ==
LOC: HO.LAB 06:51
PROVIDERS: PCP Internal Medicine; Visit Provider Psychiatry & Neurology Neurology
DX: G62.9 Polyneuropathy, unspecified (principal)
CPT/HCPCS: 36415; 80053; 82306; 82607; 82728; 82746; 84207; 84443; 84446; 85025; 85652; 86038

== ENCOUNTER 2025-03-07 10:41 | Emergency (ER) | payer OTHER, SELFPAY ==
--- NOTE | ~2025-03-07 | XR_ITS ---
CLINICAL HISTORY: pain, injury 4 view left knee Comparison: None provided Findings: No fractures or dislocations. No significant loss of joint space, osteophytes, or erosions. No joint effusion. No radiopaque foreign body. There is regional arterial calcification. IMPRESSION: 1. No acute findings. This document has been electronically signed by: Neri Naqvi MD on 03/07/2025 11:38:09
[2025-03-07 11:02] VITALS: BP 122/76; PULSE 76; RESP 16; TEMP 36.4; O2SAT 100; BMI 27.0
--- NOTE | 2025-03-07 11:13 | ED.GENADULT ---
HPI - General Adult General Chief complaint: Extremity Injury, Lower Stated complaint: fell t-1, L knee inj Time Seen by Provider: 03/07/25 12:20 Source: patient Mode of arrival: ambulatory Limitations: no limitations History of Present Illness ED Provider: PARIS SPENCER PA-C HPI narrative: 55 yo M with PMH of fibromyalgia, orthostatic hypotension, and DVT no longer on AC presents to the ED today for evaluation of left knee pain status post mechanical fall yesterday. Patient reports losing his balance while walking outside yesterday, landing on his left knee, right shoulder and right elbow. Denies head strike or LOC. Denies any preceding symptoms of dizziness, chest pain, palpitations, nausea changes for GERD Sports abrasion to the front of his left knee with continued pain into today, prompting him to come to the ED for further evaluation. Pain is exacaerbated with flexion of the knee. He is able to ambulate unassisted with some pain. He has not trialed any [id number] pain medications prior to arrival. Denies new numbness/tingling/weakness of the left lower extremity. Denies chest pain, palpitations, shortness of breath. No recent travel or long car rides. Related Data Home Medications ?Medication ?Instructions ?Recorded ?Confirmed cholecalciferol (vitamin D3) 25 50 mcg PO DAILY 01/31/22 02/09/25 mcg (1,000 unit) tablet ropinirole 0.25 mg tablet 0.5 mg PO BEDTIME 04/10/23 02/09/25 gabapentin 100 mg capsule 100 mg PO BEDTIME 02/09/25 02/09/25 tramadol 50 mg tablet 50 mg PO TID PRN 02/09/25 02/09/25 trazodone 150 mg tablet 150 mg PO BEDTIME PRN 02/09/25 02/09/25 Previous Rx's ?Medication ?Instructions ?Recorded cyclobenzaprine 10 mg tablet 10 mg PO TID PRN muscle spasm #15 12/15/23 tabs albuterol sulfate 90 mcg/actuation 2 puff inhalation Q6H PRN 06/02/24 aerosol inhaler shortness of breath or wheezing or cough #8.5 grams polyethylene glycol 3350 17 17 g PO DAILY #510 grams 12/22/24 gram/dose oral powder (Miralax) gabapentin 300 mg capsule 600 mg (2 x 300 mg) PO BEDTIME #60 02/09/25 caps naproxen 500 mg tablet 500 mg PO Q12H PRN pain (scale 03/07/25 score 1-3) #20 tabs Allergies Allergy/AdvReac Type Severity Reaction Status Date / Time No Known Allergies Allergy Verified 03/07/25 11:11 Review of Systems Review of Systems: Yes all other systems are reviewed and are negative [facility] Past Medical History Attestation statement: The following information was validated with the patient. Source: old records reviewed and nursing notes reviewed Medical History Numbness and tingling of both legs Hyperreflexic Low back pain Neuropathy Mild persistent asthma without complication Other specified polyneuropathies RLS (restless legs syndrome) Anxiety and depression Venous insufficiency of left lower extremity Recurrent deep vein thrombosis of both lower extremities Depression DVT (deep venous thrombosis) Surgical History S/P gastric sleeve procedure Family History Family History Mother Guillain Spencer? syndrome Sister Guillain Spencer? syndrome Social History Social History Household Members: Spouse and Children Housing: House Do you presently have visiting nurse or other home services: No Alcohol intake: current Alcohol intake frequency: 3 or more drinks per day Alcohol type: other Patient Tobacco Use Status: Never used Tobacco Substance Use Type: Marijuana service: No Physical Exam ED Vital Signs: Vital Signs - 24 hr 03/07/25 11:02 03/07/25 12:38 Temperature 97.5 F 98.7 F Pulse Rate 76 64 Respiratory Rate 16 16 Blood Pressure 122/76 116/77 Pulse Oximetry 100 100 Oxygen Delivery Method Room Air Room Air BMI result Body Mass Index 27.0 vital signs stable General: Well appearing, in no acute distress. Skin: Warm, dry, intact. No rashes or lesions. Head: Normocephalic, atraumatic. EENT: Hearing is intact b/l. Conjunctiva clear. PERRLA. EOM intact. Moist mucous membranes.? Cardiac: Chest wall symmetric. RRR Lungs: Normal respiratory effort without accessory muscle use. CTA bilaterally Back: No midline spinous or paraspinal tenderness. No step off deformity. Ext: +left knee with minimal swelling and small well healing abrasion noted to anterior aspect of patella. no bleeding. FROM intact to L knee with minimal pain reported on active flexion. no palpable deformities or crepitus. no fluctuance/warmth. ambulating with steady gait. 2+ popliteal, DP/PT pulse intact. no calf tenderness. no pitting edema. Neuro: AOx3. Normal speech. Course Course Course Narrative: Rapid medical examination performed in triage by Fatuma Reeder PA-C. Patient is a 55 year old assigned male at presenting to the emergency department with left knee pain. Detailed physical exam and review of systems are deferred to the triage clinician. Imaging ordered. Patient placed back in the waiting room pending room availability and results. Reevaluation(s) Reevaluation #1: X-ray left knee negative for fracture. No significant joint effusion. Exam reassuring. Dr. Canales performed bedside ultrasound, no DVT demonstrated. > patient has contusion. Band-Aid applied to abrasion. Aristides wrap applied to help with compression. Educated on rice therapy. Patient has remained stable throughout ED visit today. Discussed worrisome signs and symptoms and when to return to the ED. All questions answered at this time. Patient is agreeable with disposition and stable for discharge. Medications Administered Discontinued Medications Generic Name Dose Route Start Last Admin Trade Name Freq PRN Reason Stop Dose Admin Ketorolac Tromethamine 30 mg 03/07/25 13:04 03/07/25 13:11 Ketorolac Tromethamine 30 Mg/Ml Vial IM 03/07/25 13:05 30 mg ONCE ONE Administration Procedures Procedure Narrative Procedure Narrative: EMERGENCY ULTRASOUND INTERPRETATION-Limited Point of Care Venous (DVT)? [The study reveals:? Impression: NO EVIDENCE OF DVT. I RECOMMENDED TO THE PATIENT? REPEAT ULTRASOUND IN ONE WEEK IF SYMPTOMS PERSIST.] [Indication: L knee pain Laterality: ? LEFT Common Femoral:? -Full Compressibility: YES -Clot Seen: NO Superficial Femoral:? -Full Compressibility: YES -Clot Seen: NO Popliteal:? -Full Compressibility: YES -Clot Seen: NO Performed by: Bro Canales MD Date: Time: 125403/07/25 Interpretation. CPT: 13151; Reference Codes? [email or web address]://bit.ly/[email or web address]] Medical Decision Making Medical Decision Making MDM Narrative: 55 yo M with PMH of fibromyalgia, orthostatic hypotension, and DVT no longer on AC presents to the ED today for evaluation of left knee pain status post mechanical trip fall yesterday. Vital signs stable. On exam, left knee with minimal swelling and small well healing abrasion noted to anterior aspect of patella. no bleeding. FROM intact to L knee with minimal pain reported on active flexion. no palpable deformities or crepitus. no fluctuance/warmth. ambulating with steady gait. 2+ popliteal, DP/PT pulse intact. no calf tenderness. no pitting edema. Differential diagnosis includes contusion, fracture, MSK sprain/strain, arthritis. Presentation not consistent with gout or pseudogout. Unlikely DVT, neurovascular compromise, threat to limb, compartment syndrome. Differential Diagnosis Differential Diagnoses: The differential diagnosis associated with the presentation includes As above Admission/Observation Not indicated Independent Interpretation I performed an independent interpretation of an: Plain X-Ray Interpretation: X-ray left knee without acute fracture Radiology Impression Discussion of test interpretation with radiology: I have reviewed the radiologist's reading. Radiologist Impression: Date of Service: 03/07/25 Procedure(s): XR knee LT 4V Accession Number(s): [id number] cc: Fatuma Reeder; Luis Fernando Sinha MD~ Reason for Exam: pain, injury CLINICAL HISTORY: pain, injury 4 view left knee Comparison: None provided Findings: No fractures or dislocations. No significant loss of joint space, osteophytes, or erosions. No joint effusion. No radiopaque foreign body. There is regional arterial calcification. IMPRESSION: 1. No acute findings. This document has been electronically signed by: Neri Naqvi MD on 03/07/2025 11:38:09 Independent Historian Clinical information obtained from an independent historian. History obtained from or confirmed by: Spouse External Record Review External record reviewed: Inpatient record Prescription Management I considered prescription management with: Pain Medication Social Determinants Patient?s care significantly limited by Social Determinants of Health including: Other Social Determinant of Health Critical Care Time Critical Care Time Critical Care Time: No Discharge Plan Discharge Clinical Impression: Contusion of left knee Patient Disposition: Home, Self-Care Instructions: Contusion in Adults (ED) Additional Instructions: You were evaluated in the ED today following a fall onto your left knee. The x-rays of your left knee are reassuring. There is no fracture. We performed a bedside ultrasound and do not appreciate any clot in your deep veins. You likely just have a contusion. Utilize rice therapy at home - rice, ice, compress, elevate. We have provided you with an Aristides wrap to help with compression. I am sending naproxen, an anti-inflammatory pain medication to your pharmacy. You may take this at home as needed for pain. Return with any new or worsening symptoms. In the case of an emergency call 911. Prescriptions: New naproxen 500 mg tablet 500 mg PO Q12H PRN (Reason: pain (scale score 1-3)) Qty: 20 0RF No Action cyclobenzaprine 10 mg tablet 10 mg PO TID PRN (Reason: muscle spasm) Qty: 15 0RF ropinirole 0.25 mg tablet 0.5 mg PO BEDTIME polyethylene glycol 3350 [Miralax] 17 gram/dose powder 17 g PO DAILY Qty: 510 0RF cholecalciferol (vitamin D3) 25 mcg (1,000 unit) tablet 50 mcg PO DAILY albuterol sulfate 90 mcg/actuation HFA aerosol inhaler 2 puff inhalation Q6H PRN (Reason: shortness of breath or wheezing or cough) Qty: 8.5 0RF tramadol 50 mg tablet 50 mg PO TID PRN trazodone 150 mg tablet 150 mg PO BEDTIME PRN gabapentin 100 mg capsule 100 mg PO BEDTIME gabapentin 300 mg capsule 600 mg PO BEDTIME Qty: 60 6RF Referrals: Luis Fernando Sinha MD [Primary Care Provider, Internal Medicine] Discharge Date/Time: 03/07/25 13:17 Print Language: British
--- OUTSIDE RECORDS SUMMARY | 2025-03-07 12:16 | XMS_ITS | Clinical Summary ---
Author Organization [facility] [address] [place] [address] [place] [address] Phone Care Team Providers Care System Administration Manager Name Role Phone Luis Fernando Sinha MD Primary Care Provider [phone] Allergies No known active allergies Medications albuterol HFA (Proventil HFA) 90 mcg/actuation inhaler Inhale 2 puffs by mouth every 4 (four) hours if needed for wheezing or shortness of breath. 6.7 g 1 5 01/20/20 26 Active budesonide (PULMICORT) 180 mcg/actuation inhaler Inhale 1 puff by mouth 2 (two) times a day. Rinse mouth with water after use to reduce aftertaste and incidence of candidiasis. Do not swallow. 1 each 5 01/20/20 26 Active cholecalcifero l (VITAMIN D-3) 25 mcg (1,000 unit) tablet Take 1 tablet (1,000 Units total) by mouth 1 (one) time each day. 90 tablet 5 Active DULoxetine (Cymbalta) [address] capsule Take 1 capsule (60 mg total) by mouth 1 (one) time each day. Do not crush or chew. 90 each 5 Active rOPINIRole (REQUIP) 1 mg tablet Take 1 tablet (1 mg total) by mouth at bedtime. at bedtime. 90 tablet 5 Active cyanocobalamin (VITAMIN B-12) 1,000 mcg tablet Take 1 tablet (1,000 mcg total) by mouth 1 (one) time each day. 90 tablet 3 5 02/22/20 26 Active gabapentin (NEURONTIN) 300 mg capsule Take 1 capsule (300 mg total) by mouth at bedtime. Take 1-2 tablets at bedtime 5 Active QUEtiapine (SeroqueL) 50 mg tablet Take 1 tablet (50 mg total) by mouth at bedtime. 30 each 5 03/28/20 25 Active traZODone (DESYREL) 150 mg tablet Take 1 tablet (150 mg total) by mouth at bedtime as needed for sleep. 90 tablet 1 5 02/27/20 Discontinu ed(Alterna te therapy) gabapentin (NEURONTIN) 100 mg capsule Take 2 capsules (200 mg total) by mouth at bedtime. 60 each 3 5 02/27/20 Discontinu ed(Alterna te therapy) Active Problems Problem Noted Date Diagnosed Date [...] vein th rombosis (DVT) of lower extremity ([facility] V24, [facility] V28) 12/08/2014 Overview (03/30/2024): Recurrent DVT, follows with vascular service, will need life long anticoagulation Obstructive sleep apnea 11/25/2014 Hand pain 04/29/2012 Hyperlipidemia 12/18/2011 RLS (restless legs syndrome) 12/15/2011 Encounters Date Type Department Care Team Description 02/26/2025 3:00 PM EDT Office Visit Adult Medicine [address] [phone] Dennis Morin, PLATFORM LOADER Schizoaffective disorder, bipolar type (CMS/HCC V24, CMS/HCC V28) (Primary Dx); Irritability and anger; Marijuana use 01/27/2025 Anticoagulation - Warfarin Visit Coumadin [address] [phone] Marion Pedroza LPN Personal history of DVT (deep vein thrombosis) (Primary Dx) [facility] [address] [place] [address] Eloise Aggarwal LPN 01/21/[address] [phone] Luis Fernando Sinha MD 01/19/2025 2:30 PM EDT Office Visit [address] [phone] Luis Fernando Sinha MD Recurrent acute deep vein thrombosis (DVT) of lower extremity, unspecified laterality ([facility]/HCC V24, CMS/HCC V28) (Primary Dx); Venous insufficiency of both lower extremities; Constipation, unspecified constipation type; Anxiety and depression; RLS (restless legs syndrome); Other polyneuropathy; Chronic pain of left knee; Mild persistent asthma without complication; S/P gastric sleeve procedure 12/09/[address] [phone] Marion Pedroza LPN from Last 3 Months Immunizations Name Administration Dates Next Due Influenza Quadravalent, MDCK , 0.5ml, with preservative (Flucelvax) 6mo and older 03/29/2022 Pfizer (ages 12 & older) Bivalent, COVID-19 11/2021 Pneumococcal polysaccharide 23 valent (Pneumovax 23) 2yo [...] COMMENT: Spinal stimulator placement GASTRIC BYPASS PROCEDURE: VT GASTRIC RSTCV W/BYP W/SM INT RCNSTJ LIMIT ABSRPJ Medical History Medical History Date Comments RLS (restless legs syndrome) DX: RLS (restless legs syndrome) DVT (deep venous thrombosis) ([facility] V24, [facility] V28) DX:DVT (deep venous thrombo sis) ([facility]); COMMENT: left lef 2011 Hypothyroid DX:Hypothyroid Hand pain 04/29/2012 DX:Hand pain DVT (deep venous thrombosis) ([facility] V24, [facility] V28) 12/08/2014 DX:DVT (deep venous thrombo sis) ([facility]); COMMENT: Recurrent DVT, follows with vascular service, [...] Record ed Within the last 3 months, roosevelt millan many times did you visit the emergency [...] care for your loved ones. For example, children counselor or elderly care for an older adult? [...] Sign Reading Time Taken Comments Blood Pressure 141/73 02/26/2025 2:48 PM EDT Pulse 72 01/19/2025 2:22 PM EDT Temperature 36.1 C (97 F) 01/19/2025 2:22 PM EDT Respiratory Rate 18 02/26/2025 2:48 PM EDT Oxygen Saturation 98% 09/17/2024 9:50 AM EDT Inhaled Oxygen Concentration - - Weight 96.7 kg (213 lb 1.6 oz) 02/26/2025 2:48 P M EDT Height 188 cm (6' 2 ) 01/19/2025 2:22 PM EDT Body Mass Index 27.36 01/19/2025 2:22 PM EDT Plan of Treatment Upcoming Encounters Date Type Department Care Team (Late st Contact Info) Description 03/19/2025 10:30 AM EDT Office Visit [address] [phone] Dennis Morin NP [address] [place], [place] 03/26/2025 9:45 AM EDT Office Visit Pulmonolgy - [place] [address] [phone] Singh Ortega MD [address] [address] 06/23/2025 10:30 AM EST Office Visit [address] [phone] Luis Fernando Sinha MD [address] [place] [address] Health Maintenance Due Date Last Done Comments Hepatitis B Vaccines (1 of 3 - 19+ 3-dose series) 02/13/1988 Pneumococcal Vaccine: 50+ Years (2 of 2 - PCV) 12/09/2015 12/08/2014 Zoster Vaccines (1 of 2) 2019 Depression Screening 06/24/2024 05/06/2024, 03/25/20 24 COVID-19 Vaccine ( season) 2025 03/29/2022, 05/16/2021, 10/08/2020, Additional history exists Influenza Vaccine (#1) 2025 , 03/29/2022, 03/30/2010 [...] Procedure Name Priority Date/Time Associated Diagnosis Comments EXTERNAL CLINICAL LAB 02/15/2025 EXTERNAL CLINICAL LAB 02/15/2025 EXTERNAL CLINICAL LAB 02/15/2025 EXTERNAL CLINICAL LAB 02/15/2025 CBC WITH AUTO DIFFERENTIAL Routine 01/20/2025 7:56 [...] CT REPORT 12/22/[address] REPORT 12/22/2024 HM DEPRESSION SCREENING Routine 03/25/2024 HM COLONOSCOPY Routine 02/22/2022 from Last 3 Months or Most Recently Relevant to Health Maintenance Results * External clinical lab (02/15/2025) Only the most recent of4 resultswithin the time period is included. us Provider [facility] LAB BLOOD ORDERABLES Fin al Result * Prostate specific antigen screen (01/20/2025 7:56 AM EDT) PSA 0.89 0.00 - 4.00 ng/mL LAB CHEMISTRY METHOD 01/20/2025 11:04 AM EDT [facility]) [facility] Blood Venous blood specimen / Unknown Venipuncture / Unknown 01/20/2025 7:56 AM EDT 01/20/2025 7:56 AM EDT Narrative [facility] - 01/20/2025 11:04 AM EDT The Siemens Advia Centaur Chemiluminescent Immunoassay is used. Results obtained with different assay methods or kits cannot be used interchangeably. Results cannot be interpreted as absolute evidence of the presence or absence of malignant disease. Celina GUILLEN LAB BLOOD ORDERABLES Fin al Result Performing Organization Address [facility] Co de Phone Number [facility] [address] [place] [address], [place] [phone] * Hepatitis C antibody (01/20/2025 7:56 AM EDT) Pathologist [facility] Hepatitis C Antibody Negative Negative LAB CHEMISTRY METHOD 01/20/2025 11:44 AM EDT [facility] Blood Venous blood specimen / Unknown Venipuncture / Unknown 01/20/2025 7:56 AM EDT 01/20/2025 7:56 AM EDT Cel[facility] GUILL[facility] LAB BLOOD ORDERABLES Fin al Result Performing Organization Address [facility] Co de Phone Number [facility] [address] [place] [address], [place] [phone] * Thyroid stimulating hormone with reflex to free t4 and free t3 (01/20/2025 7:56 AM EDT) Pathologist [facility] TSH 1.61 0.40 - 4.00 mcIU/mL LAB CHEMISTRY METHOD 01/20/2025 11:37 AM EDT [facility] Blood Venous blood specimen / Unknown Venipuncture / Unknown 01/20/2025 7:56 AM EDT 01/20/2025 7:56 AM EDT Celina GUILLEN LAB BLOOD ORDERABLES Fin al Result Performing Organization Address City/[facility]/ZIP Co de Phone Number [facility] [address] [place] [address], [place] [phone] * (ABNORMAL) Lipid panel with reflex to direct LDL (01/20/2025 7:56 AM EDT) Cholesterol 183 0 - 200 mg/dL LAB CHEMISTRY METHOD 01/20/2025 10:24 AM EDT [facility] Triglycerides 81 0 - 150 mg/dL LAB CHEMISTRY METHOD 01/20/2025 10:24 AM EDT [facility] HDL 55 >=40 mg/dL LAB CHEMISTRY METHOD 01/20/2025 10:24 AM EDT [facility] LDL Calculated 112(H) 0 - 100 mg/dL LAB CHEMISTRY METHOD 01/20/2025 10:24 AM EDT [facility] VLDL Cholesterol Montez 16.2 mg/dL LAB CHEMISTRY METHOD 01/20/2025 10:24 AM EDT [facility] Non HDL Chol. (LDL+VLDL) 128 <145 mg/dL LAB CHEMISTRY METHOD 01/20/2025 10:24 AM EDT [facility] Chol/HDL Ratio 3.3 0.0 - 4.4 LAB CHEMISTRY METHOD 01/20/2025 10:24 AM EDT [facility] Blood Venous blood specimen / Unknown Venipuncture / Unknown 01/20/2025 7:56 AM EDT 01/20/2025 7:56 AM EDT Cel[facility] GUILL[facility] LAB BLOOD ORDERABLES Fin al Result [facility] [address] [place] [address], [place] [phone] * (ABNORMAL) CBC auto differential (01/20/2025 7:56 AM EDT) WBC 7.4 4.8 - 10.8 K/mcL LAB HEMETOLOGY METHOD 01/20/2025 10:49 AM [facility] RBC 4.60 4.50 - 5.50 M/mcL LAB HEMETOLOGY METHOD 01/20/2025 10:49 AM [facility] Hemoglobin 14.5 13.5 - 17.5 g/dL LAB HEMETOLOGY METHOD 01/20/2025 10:49 AM [facility] Hematocrit 43.9 42.0 - 54.0 % LAB HEMETOLOGY METHOD 01/20/2025 10:49 AM [facility] MCV 94.6 79.0 - 98.0 FL LAB HEMETOLOGY METHOD 01/20/2025 10:49 AM [facility] MCH 31.3 27.0 - 32.0 pcg LAB HEMETOLOGY METHOD 01/20/2025 10:49 AM [facility] MCHC 33.0 32.0 - 37.0 g/dL LAB HEMETOLOGY METHOD 01/20/2025 10:49 AM [facility] RDW 14.3 11.0 - 15.0 % LAB HEMETOLOGY METHOD 01/20/2025 10:49 AM [facility] Platelets 194 130 - 400 K/mcL LAB HEMETOLOGY METHOD 01/20/2025 10:49 AM [facility] MPV 10.7 7.0 - 11.0 FL LAB HEMETOLOGY METHOD 01/20/2025 10:49 AM [facility] NRBC 0.0 <1.0 % LAB HEMETOLOGY METHOD 01/20/2025 10:49 AM [facility] NRBC Absolute 0.00 <0.10 K/mcL LAB HEMETOLOGY METHOD 01/20/2025 10:49 AM [facility] Neutrophils Relative 50.1 % LAB HEMETOLOGY METHOD 01/20/2025 10:49 AM [facility] Lymphocytes Relative 25.4 % LAB HEMETOLOGY METHOD 01/20/2025 10:49 AM [facility] Monocytes Relative 6.6 % LAB HEMETOLOGY METHOD 01/20/2025 10:49 AM [facility] Eosinophils Relative 16.6 % LAB HEMETOLOGY METHOD 01/20/2025 10:49 AM [facility] Basophils Relative 0.9 % LAB HEMETOLOGY METHOD 01/20/2025 10:49 AM [facility] Immature Granulocytes Relative 0.4 % LAB HEMETOLOGY METHOD 01/20/2025 10:49 AM [facility] Neutrophils Absolute 3.72 1.50 - 7.00 K/mcL LAB HEMETOLOGY METHOD 01/20/2025 10:49 AM [facility] Lymphocytes Absolute 1.89 1.00 - 5.00 K/mcL LAB HEMETOLOGY METHOD 01/20/2025 10:49 AM [facility] Monocytes Absolute 0.49 0.20 - 1.00 K/mcL LAB HEMETOLOGY METHOD 01/20/2025 10:49 AM [facility] Eosinophils Absolute 1.23(H) 0.00 - 0.50 K/mcL LAB HEMETOLOGY METHOD 01/20/2025 10:49 AM [facility] Basophils Absolute 0.07 0.00 - 0.20 K/mcL LAB HEMETOLOGY METHOD 01/20/2025 10:49 AM [facility] Immature Granulocytes Absolute 0.03 0.00 - 0.03 K/mcL LAB HEMETOLOGY METHOD 01/20/2025 10:49 AM [facility] Blood Venous blood specimen / Unknown Venipuncture / Unknown 01/20/2025 7:56 AM EDT 01/20/2025 7:56 AM EDT [facility] LAB BLOOD ORDERABLES Fin al Result [facility] [address] [place] [address], [place] [phone] * Hemoglobin A1c (01/20/2025 7:56 AM EDT) Pathologist [facility] Hemoglobin A1C 5.1 <6.5 % LAB CHEMISTRY METHOD 01/20/2025 1:40 PM EDT [facility] Mean Bld Glu Estim. 100 mg/dL LAB CHEMISTRY METHOD 01/20/2025 1:40 PM EDT [facility] Blood Venous blood specimen / Unknown Venipuncture / Unknown 01/20/2025 7:56 AM EDT 01/20/2025 7:56 AM EDT Cel[facility] GUILLEN LAB BLOOD ORDERABLES Fin al Result Performing Organization Address City/[facility]/ZIP Co de Phone Number [facility] [address] [place] [address], [place] [phone] * Comprehensive metabolic panel (01/20/2025 7:56 AM EDT) [facility] Sodium 139 133 - 145 mmol/L LAB CHEMISTRY METHOD 01/20/2025 10:22 AM EDT [facility] Potassium 4.2 3.5 - 5.5 mmol/L LAB CHEMISTRY METHOD 01/20/2025 10:22 AM EDT [facility] Chloride 105 96 - 110 mmol/L LAB CHEMISTRY METHOD 01/20/2025 10:22 AM EDT [facility] CO2 31 21 - 32 mmol/L LAB CHEMISTRY METHOD 01/20/2025 10:22 AM EDT [facility] Anion Gap 3 3 - 11 LAB CHEMISTRY METHOD 01/20/2025 10:22 AM [facility] Glucose 81 70 - 100 mg/dL LAB CHEMISTRY METHOD 01/20/2025 10:22 AM [facility] BUN 8 5 - 25 mg/dL LAB CHEMISTRY METHOD 01/20/2025 10:22 AM [facility] Creatinine 1.02 0.70 - 1.30 mg/dL LAB CHEMISTRY METHOD 01/20/2025 10:22 AM [facility] eGFR 87 >=60 mL/min/1. 73m2 LAB CHEMISTRY METHOD 01/20/2025 10:22 AM [facility] Comment:Calculation based on the Chronic Kidney Disease Epidemiology Collaboration (CKD-EPI) equation refit without adjustment for race. BUN/Creatinine Ratio 7.8 LAB CHEMISTRY METHOD 01/20/2025 10:22 AM [facility] Calcium 9.1 8.5 - 10.5 mg/dL LAB CHEMISTRY METHOD 01/20/2025 10:22 AM [facility] AST (SGOT) 11 10 - 42 unit/L LAB CHEMISTRY METHOD 01/20/2025 10:22 AM [facility] ALT (SGPT) 17 10 - 60 unit/L LAB CHEMISTRY METHOD 01/20/2025 10:22 AM [facility] Alkaline Phosphatase 71 42 - 121 unit/L LAB CHEMISTRY METHOD 01/20/2025 10:22 AM [facility] Total Protein 6.5 6.0 - 8.0 g/dL LAB CHEMISTRY METHOD 01/20/2025 10:22 AM [facility] Albumin 4.1 3.2 - 5.0 g/dL LAB CHEMISTRY METHOD 01/20/2025 10:22 AM [facility] Total Bilirubin 0.8 0.0 - 1.4 mg/dL LAB CHEMISTRY METHOD 01/20/2025 10:22 AM [facility] Blood Venous blood specimen / Unknown Venipuncture / Unknown 01/20/2025 7:56 AM EDT 01/20/2025 7:56 AM EDT Cel[facility] GUILLEN LAB BLOOD ORDERABLES Fin al Result [facility] ([email or web address] [address] [place] [address], [place] [phone] * External Vascular Ultrasound (12/22/2024) Only the most recent of2 resultswithin the time period is included. Anatomical Region Laterality Modality Ultrasound Provider [facility] CV VASCULAR PROCEDURES F inal Result * External CT Report (12/22/2024) Only the most recent of2 resultswithin the time period is included. Anatomical Region Laterality Modality Computed Tomogra phy Provider [facility] IMG CT PROCEDURES Final Result * Depression Screening (03/25/2024) Depression Screening abstracted Historical Provider HEALTH MAINTENANCE Final Result * Colonoscopy (02/22/2022) Colonoscopy abnormal, abstracted Anatomical Region Laterality Modality Other Historical Provider HEALTH MAINTENANCE Final Result from Last 3 Months or Most Recently Relevant to Health Maintenance Insurance [facility] [facility] Care Teams System Administration Manager Relationship Specialty Start Date End Date Luis Fernando Sinha MD [address] [place] [address] PCP - General Internal Medicine 10/09/21
[2025-03-07 12:38] VITALS: BP 116/77; PULSE 64; RESP 16; TEMP 37.1; O2SAT 100
== END 2025-03-07 13:17 | disposition home or self-care (01) ==
PROVIDERS: Emergency Provider Emergency Medicine; PCP Internal Medicine
DX: S80.02XA Contusion of left knee, initial encounter (principal); M25.562 Pain in left knee; R60.0 Localized edema; X58.XXXA Exposure to other specified factors, initial encounter; Y93.9 Activity, unspecified; Y92.9 Unspecified place or not applicable; Y99.8 Other external cause status
CPT/HCPCS: 73564; 93971; 96372; 99283; J1885

== ENCOUNTER → 2025-03-07 11:15 | Outpatient (BNV) | payer OTHER, SELFPAY | PROVIDERS: PCP Internal Medicine; Visit Provider Specialist | DX: S80.02XA Contusion of left knee, initial encounter (principal); W19.XXXA Unspecified fall, initial encounter | CPT/HCPCS: 73564 ==

== ENCOUNTER → 2025-03-09 07:08 | Outpatient (BNV) | payer OTHER, SELFPAY | PROVIDERS: PCP Internal Medicine; Visit Provider Radiology Diagnostic Radiology | DX: M51.360 Other intervertebral disc degeneration, lumbar region with discogenic back pain only (principal); M51.A4 Intervertebral annulus fibrosus defect, small, lumbosacral region | CPT/HCPCS: 72148 ==

== ENCOUNTER 2025-03-09 07:09 | Outpatient (REF) | payer OTHER, SELFPAY ==
--- NOTE | ~2025-03-09 | MR_ITS ---
CLINICAL HISTORY: M54.50 - Low back pain, unspecified MRI lumbar spine without contrast Comparison: None provided Findings: L5-S1 facet hypertrophy and central disc bulge. Small midline posterior annular tear. No significant canal stenosis is identified. Moderate right neural foraminal narrowing. L4-5 facet hypertrophy and generalized disc bulge. Left paramidline posterior annular tear. No significant canal stenosis is identified. Moderate left neural foraminal narrowing. L3-4 facet hypertrophy and generalized disc bulge. Mild spinal stenosis with left neural foraminal narrowing. L2-3 facet hypertrophy and generalized disc bulge. Moderate spinal stenosis without neural foraminal narrowing. L1-2 facet hypertrophy and minimal disc bulge. Minimal canal stenosis without neural foraminal narrowing. No acute bony signal abnormality identified. Small lipid rests or hemangiomas noted. Posterior bony alignment is normal. Impression: Multilevel degenerative change as outlined above Small posterior annular tears L4-5 and L5-S1 This document has been electronically signed by: Thierno Reagan MD on 03/09/2025 19:57:47
--- OUTSIDE RECORDS SUMMARY | 2025-03-09 07:12 | XMS_ITS | Clinical Summary ---
Author Organization [facility] [address] [place] [address] [place] [address] Phone Care Team Providers Care Airplane Patroller Name Role Phone Luis Fernando Sinha MD Primary Care Provider [phone] Allergies No known active allergies Medications albuterol [...] vein th rombosis (DVT) of lower extremity ([facility] V24, [facility] V28) 12/08/2014 Overview (03/30/2024): Recurrent DVT, follows with vascular service, will need life long anticoagulation Obstructive sleep apnea 11/25/2014 Hand pain 04/29/2012 Hyperlipidemia 12/18/2011 RLS (restless legs syndrome) 12/15/2011 Encounters Date Type Department Care Team Description 02/26/2025 3:00 PM EDT Office Visit Adult Medicine [address] [phone] Dennis Morin, ROUTE DELIVERY MANAGER Schizoaffective disorder, bipolar type (CMS/HCC V24, CMS/HCC V28) (Primary Dx); Irritability and anger; Marijuana use 01/27/2025 Anticoagulation - Warfarin Visit Coumadin [address] [phone] Marion Pedroza LPN Personal history of DVT (deep vein thrombosis) (Primary Dx) [facility] [address] [place] [address] Eloise Aggarwal LPN 01/21/[address] [phone] Luis Fernando Sinha MD 01/19/2025 2:30 PM EDT Office Visit [address] [phone] Luis Fernando Sinha MD Recurrent acute deep vein thrombosis (DVT) of lower extremity, unspecified laterality ([facility]/HCC V24, CMS/HCC V28) (Primary Dx); Venous insufficiency of both lower extremities; Constipation, unspecified constipation type; Anxiety and depression; RLS (restless legs syndrome); Other polyneuropathy; Chronic pain of left knee; Mild persistent asthma without complication; S/P gastric sleeve procedure 12/09/[address] [phone] Marion Pedroza LPN from Last 3 Months [...] COMMENT: Spinal stimulator placement GASTRIC BYPASS PROCEDURE: [place] GASTRIC RSTCV W/BYP W/SM INT RCNSTJ LIMIT ABSRPJ Medical History Medical History Date Comments RLS (restless legs syndrome) DX: RLS (restless legs syndrome) DVT (deep venous thrombosis) ([facility] V24, [facility] V28) DX:DVT (deep venous thrombo sis) ([facility]); COMMENT: left lef 2011 Hypothyroid DX:Hypothyroid Hand pain 04/29/2012 DX:Hand pain DVT (deep venous thrombosis) ([facility] V24, [facility] V28) 12/08/2014 DX:DVT (deep venous thrombo sis) ([facility]); COMMENT: Recurrent DVT, follows with [...] care for your loved ones. For example, exceptional children's teacher or elderly care for an older adult? [...] Description 03/19/2025 10:30 AM EDT Office Visit [address] [phone] Dennis Morin NP [address] [place], [place] 03/26/2025 9:45 AM EDT Office Visit Pulmonolgy - [place] [address] [phone] Singh Ortega MD [address] [address] 06/23/2025 10:30 AM EST Office Visit [address] [phone] Luis Fernando Sinha MD [address] [place] [address] Health Maintenance Due Date Last Done Comments [...] LAB CHEMISTRY METHOD 01/20/2025 11:04 AM EDT [facility] Blood Venous blood specimen / Unknown Venipuncture / Unknown 01/20/2025 7:56 AM EDT 01/20/2025 7:56 AM EDT Narrative [facility] - 01/20/2025 11:04 AM EDT The Siemens Advia Centaur Chemiluminescent Immunoassay is used. Results obtained with different assay methods or kits cannot be used interchangeably. Results cannot be interpreted as absolute evidence of the presence or absence of malignant disease. Celina GUILLEN LAB BLOOD ORDERABLES Fin al Result Performing Organization Address [facility] Co de Phone Number [facility] [address] [place] [address], [place] [phone] * Hepatitis C antibody (01/20/2025 7:56 AM EDT) Pathologist [facility] Hepatitis C Antibody Negative Negative LAB CHEMISTRY METHOD 01/20/2025 11:44 AM EDT [facility] Blood Venous blood specimen / Unknown Venipuncture / Unknown 01/20/2025 7:56 AM EDT 01/20/2025 7:56 AM EDT Celina GUILLEN LAB BLOOD ORDERABLES Fin al Result Performing Organization Address [facility] Co de Phone Number [facility] [address] [place] [address], [place] [phone] * Thyroid stimulating hormone with reflex to free t4 and free t3 (01/20/2025 7:56 AM EDT) Pathologist [facility] TSH 1.61 0.40 - 4.00 mcIU/mL LAB CHEMISTRY METHOD 01/20/2025 11:37 AM EDT [facility] Blood Venous blood specimen / Unknown Venipuncture / Unknown 01/20/2025 7:56 AM EDT 01/20/2025 7:56 AM EDT Celina GUILLEN LAB BLOOD ORDERABLES Fin al Result Performing Organization Address City/[facility]/ZIP Co de Phone Number [facility] [address] [place] [address], [place] [phone] * (ABNORMAL) Lipid panel with reflex to direct LDL (01/20/2025 7:56 AM EDT) Cholesterol 183 0 - 200 mg/dL LAB CHEMISTRY METHOD 01/20/2025 10:24 AM EDT [facility] Triglycerides 81 0 - 150 mg/dL LAB CHEMISTRY METHOD 01/20/2025 10:24 AM EDT [facility] HDL 55 >=40 mg/dL LAB CHEMISTRY METHOD 01/20/2025 10:24 AM EDT [facility] LDL Calculated 112(H) 0 - 100 mg/dL LAB CHEMISTRY METHOD 01/20/2025 10:24 AM EDT [facility] VLDL Cholesterol [place] 16.2 mg/dL LAB CHEMISTRY METHOD 01/20/2025 10:24 AM EDT [facility] Non HDL Chol. (LDL+VLDL) 128 <145 mg/dL LAB CHEMISTRY METHOD 01/20/2025 10:24 AM EDT [facility] Chol/HDL Ratio 3.3 0.0 - 4.4 LAB CHEMISTRY METHOD 01/20/2025 10:24 AM EDT [facility] Blood Venous blood specimen / Unknown Venipuncture / Unknown 01/20/2025 7:56 AM EDT 01/20/2025 7:56 AM EDT Celina GUILLEN LAB BLOOD ORDERABLES Fin al Result [facility] [address] [place] [address], [place] [phone] * (ABNORMAL) CBC auto differential (01/20/2025 7:56 AM EDT) WBC 7.4 4.8 - 10.8 K/mcL LAB HEMETOLOGY METHOD 01/20/2025 10:[address] [facility] RBC 4.60 4.50 - 5.50 M/mcL LAB HEMETOLOGY METHOD 01/20/2025 10:[address] [facility] Hemoglobin 14.5 13.5 - 17.5 g/dL LAB HEMETOLOGY METHOD 01/20/2025 10:[address] [facility] Hematocrit 43.9 42.0 - 54.0 % LAB HEMETOLOGY METHOD 01/20/2025 10:[address] [facility] MCV 94.6 79.0 - 98.0 FL LAB HEMETOLOGY METHOD 01/20/2025 10:[address] [facility] MCH 31.3 27.0 - 32.0 pcg LAB HEMETOLOGY METHOD 01/20/2025 10:[address] [facility] MCHC 33.0 32.0 - 37.0 g/dL LAB HEMETOLOGY METHOD 01/20/2025 10:[address] [facility] RDW 14.3 11.0 - 15.0 % LAB HEMETOLOGY METHOD 01/20/2025 10:[address] [facility] Platelets 194 130 - 400 K/mcL LAB HEMETOLOGY METHOD 01/20/2025 10:[address] [facility] MPV 10.7 7.0 - 11.0 FL LAB HEMETOLOGY METHOD 01/20/2025 10:[address] [facility] NRBC 0.0 <1.0 % LAB HEMETOLOGY METHOD 01/20/2025 10:[address] [facility] NRBC Absolute 0.00 <0.10 K/mcL LAB HEMETOLOGY METHOD 01/20/2025 10:[address] [facility] Neutrophils Relative 50.1 % LAB HEMETOLOGY METHOD 01/20/2025 10:[address] [facility] Lymphocytes Relative 25.4 % LAB HEMETOLOGY METHOD 01/20/2025 10:[address] [facility] Monocytes Relative 6.6 % LAB HEMETOLOGY METHOD 01/20/2025 10:[address] [facility] Eosinophils Relative 16.6 % LAB HEMETOLOGY METHOD 01/20/2025 10:[address] [facility] Basophils Relative 0.9 % LAB HEMETOLOGY METHOD 01/20/2025 10:[address] [facility] Immature Granulocytes Relative 0.4 % LAB HEMETOLOGY METHOD 01/20/2025 10:[address] [facility] Neutrophils Absolute 3.72 1.50 - 7.00 K/mcL LAB HEMETOLOGY METHOD 01/20/2025 10:[address] [facility] Lymphocytes Absolute 1.89 1.00 - 5.00 K/mcL LAB HEMETOLOGY METHOD 01/20/2025 10:[address] [facility] Monocytes Absolute 0.49 0.20 - 1.00 K/mcL LAB HEMETOLOGY METHOD 01/20/2025 10:[address] [facility] Eosinophils Absolute 1.23(H) 0.00 - 0.50 K/mcL LAB HEMETOLOGY METHOD 01/20/2025 10:[address] [facility] Basophils Absolute 0.07 0.00 - 0.20 K/mcL LAB HEMETOLOGY METHOD 01/20/2025 10:[address] [facility] Immature Granulocytes Absolute 0.03 0.00 - 0.03 K/mcL LAB HEMETOLOGY METHOD 01/20/2025 10:[address] [facility] Blood Venous blood specimen / Unknown Venipuncture / Unknown 01/20/2025 7:56 AM EDT 01/20/2025 7:56 AM EDT Celina GUILLEN LAB BLOOD ORDERABLES Fin al Result [facility] [address] [place] [address], [place] [phone] * Hemoglobin A1c (01/20/2025 7:56 AM EDT) Pathologist [facility] Hemoglobin A1C 5.1 <6.5 % LAB CHEMISTRY METHOD 01/20/2025 1:40 PM EDT [facility] Mean Bld Glu Estim. 100 mg/dL LAB CHEMISTRY METHOD 01/20/2025 1:40 PM EDT [facility] Blood Venous blood specimen / Unknown Venipuncture / Unknown 01/20/2025 7:56 AM EDT 01/20/2025 7:56 AM EDT Celina GUILLEN LAB BLOOD ORDERABLES Fin al Result Performing Organization Address City/[facility]/ZIP Co de Phone Number [facility] [address] [place] [address], [place] [phone] * Comprehensive metabolic panel (01/20/2025 7:56 AM EDT) [facility] Sodium 139 133 - 145 mmol/L LAB CHEMISTRY METHOD 01/20/2025 10:22 AM EDT [facility] Potassium 4.2 3.5 - 5.5 mmol/L LAB CHEMISTRY METHOD 01/20/2025 10:22 AM EDT [facility] Chloride 105 96 - 110 mmol/L LAB CHEMISTRY METHOD 01/20/2025 10:22 AM EDT [facility] CO2 31 21 - 32 mmol/L LAB CHEMISTRY METHOD 01/20/2025 10:22 AM EDT [facility] Anion Gap 3 3 - 11 LAB CHEMISTRY METHOD 01/20/2025 10:[address] [facility] Glucose 81 70 - 100 mg/dL LAB CHEMISTRY METHOD 01/20/2025 10:[address] [facility] BUN 8 5 - 25 mg/dL LAB CHEMISTRY METHOD 01/20/2025 10:[address] [facility] Creatinine 1.02 0.70 - 1.30 mg/dL LAB CHEMISTRY METHOD 01/20/2025 10:[address] [facility] eGFR 87 >=60 mL/min/1. 73m2 LAB CHEMISTRY METHOD 01/20/2025 10:[address] [facility] Comment:Calculation based on the Chronic Kidney Disease Epidemiology Collaboration (CKD-EPI) equation refit without adjustment for race. BUN/Creatinine Ratio 7.8 LAB CHEMISTRY METHOD 01/20/2025 10:[address] [facility] Calcium 9.1 8.5 - 10.5 mg/dL LAB CHEMISTRY METHOD 01/20/2025 10:[address] [facility] AST (SGOT) 11 10 - 42 unit/L LAB CHEMISTRY METHOD 01/20/2025 10:[address] [facility] ALT (SGPT) 17 10 - 60 unit/L LAB CHEMISTRY METHOD 01/20/2025 10:[address] [facility] Alkaline Phosphatase 71 42 - 121 unit/L LAB CHEMISTRY METHOD 01/20/2025 10:[address] [facility] Total Protein 6.5 6.0 - 8.0 g/dL LAB CHEMISTRY METHOD 01/20/2025 10:[address] [facility] Albumin 4.1 3.2 - 5.0 g/dL LAB CHEMISTRY METHOD 01/20/2025 10:[address] [facility] Total Bilirubin 0.8 0.0 - 1.4 mg/dL LAB CHEMISTRY METHOD 01/20/2025 10:[address] [facility] Blood Venous blood specimen / Unknown Venipuncture / Unknown 01/20/2025 7:56 AM EDT 01/20/2025 7:56 AM EDT Celina GUILLEN LAB BLOOD ORDERABLES Fin al Result [facility]) [facility] [address] [place] [address], [place] [phone] * External Vascular Ultrasound (12/22/2024) Only the [...] Most Recently Relevant to Health Maintenance Insurance [facility] [place] [address] Care Teams Airplane Patroller Relationship Specialty Start Date End Date Luis Fernando Sinha MD [address] [place] [address] PCP - General Internal Medicine 10/09/21
== END 2025-03-09 07:10 | disposition home or self-care (01) ==
LOC: HO.MRI 07:09
PROVIDERS: PCP Internal Medicine; Visit Provider Psychiatry & Neurology Neurology
DX: M54.50 Low back pain, unspecified (principal); R29.2 Abnormal reflex; R20.0 Anesthesia of skin; R20.2 Paresthesia of skin
CPT/HCPCS: 72148

== ENCOUNTER 2025-03-23 07:48 | Outpatient (REF) | payer OTHER, SELFPAY ==
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
--- OUTSIDE RECORDS SUMMARY | 2025-03-23 07:57 | XMS_ITS | Clinical Summary ---
Author Organization [facility] [address] [place] [address] [place] [address] Phone Care Team Providers Care Contract Accountant Name Role Phone Luis Fernando Sinha MD Primary Care Provider [phone] Allergies No known active allergies Medications albuterol [...] each day. 90 tablet 3 5 02/22/20 Active gabapentin (NEURONTIN) 300 mg capsule Take 1 capsule (300 mg total) by mouth at bedtime. Take 1-2 tablets at bedtime Active QUEtiapine (SeroqueL) 100 mg tablet Take 1 tablet (100 mg total) by mouth at bedtime. 30 each 5 04/18/20 Active traZODone (DESYREL) 150 mg tablet Take 1 tablet (150 mg total) by mouth at bedtime as needed for sleep. 90 tablet 1 5 02/27/20 Discontinu ed(Alterna te therapy) gabapentin (NEURONTIN) 100 mg capsule Take 2 capsules (200 mg total) by mouth at bedtime. 60 each 3 5 02/27/20 Discontinu ed(Alterna te therapy) QUEtiapine (SeroqueL) 50 mg tablet Take 1 tablet (50 mg total) by mouth at bedtime. 30 each 5 03/19/20 Discontinu ed(Alterna te therapy) Active Problems Problem [...] vein th rombosis (DVT) of lower extremity (CMS/HCC V24, CMS/HCC V28) 12/08/2014 Overview (03/30/2024): Recurrent DVT, follows with vascular service, will need life long anticoagulation Obstructive sleep apnea 11/25/2014 Hand pain 04/29/2012 Hyperlipidemia 12/18/2011 RLS (restless legs syndrome) 12/15/2011 Encounters Date Type Department Care Team Description 03/19/2025 10:30 AM EDT Office Visit [address] [phone] Dennis Morin NP Schizoaffective disorder, bipolar type ([facility] V24, [facility] V28) (Primary Dx) 02/26/2025 3:00 PM EDT Office Visit [address] [phone] Dennis Morin NP Schizoaffective disorder, bipolar type ([facility] V24, [facility] V28) (Primary Dx); Irritability and anger; Marijuana use 01/27/2025 Anticoagulation - Warfarin Visit Coumadin [address] [phone] Marion Pedroza, ANNELIESE Personal history of DVT (deep vein thrombosis) (Primary Dx) 01/26/2025 Telephone Coumadin [facility] [address] [place] [address] Eloise Aggarwal LPN 01/21/[address] [phone] Luis Fernando Sinha MD 01/19/2025 2:30 PM EDT Office Visit [address] [phone] Luis Frenando Sinha MD Recurrent acute deep vein thrombosis (DVT) of lower extremity, unspecified laterality ([facility] V24, [facility] [place] V28) (Primary Dx); Venous insufficiency of both lower extremities; Constipation, unspecified constipation type; Anxiety and depression; RLS (restless legs syndrome); Other polyneuropathy; Chronic pain of left knee; Mild persistent asthma without complication; S/P gastric sleeve procedure from Last 3 Months Immunizations Immunization Administration Dates Next Due Influenza Quadravalent, MDCK , 0.5ml, with preservative (Flucelvax) 6mo and older 03/29/2022 Pfizer (ages 12 & older) Bivalent, COVID-19 10/11/2021 Pneumococcal polysaccharide 23 valent (Pneumovax 23) 2yo [...] COMMENT: Spinal stimulator placement GASTRIC BYPASS PROCEDURE: OR GASTRIC RSTCV W/BYP W/SM INT RCNSTJ LIMIT ABSRPJ Medical History Medical History Date Comments RLS (restless legs syndrome) DX: RLS (restless legs syndrome) DVT (deep venous thrombosis) ([facility] V24, CMS/[facility] V28) DX:DVT (deep venous thrombo sis) ([facility]); COMMENT: left lef 2011 Hypothyroid DX:Hypothyroid Hand pain 04/29/2012 DX:Hand pain DVT (deep venous thrombosis) (CMS/HCC V24, CMS/[facility] V28) 12/08/2014 DX:DVT (deep venous thrombo sis) ([facility]); COMMENT: Recurrent DVT, follows with vascular service, [...] for your loved ones. For example, child care specialist or elderly care for an older adult? [...] Pulse 68 03/19/2025 10:14 AM EDT Temperature 36.1 C (97 F) 01/19/2025 [...] 9:45 AM EDT Office Visit Pulmonology - [place] 175 [facility] [address] [place] [phone] Singh Ortega MD 175 [facility] 200 [place] [address] 04/09/2025 11:30 AM EDT Office Visit Adult [address] [phone] Dennis Morin NP [address] [place] [address] 06/23/2025 10:30 AM EST Office Visit [address] [phone] Luis Fernando Sinha MD [address] [place] [address] Health Maintenance Due Date Last Done Comments Hepatitis B Vaccines (1 of 3 - 19+ 3-dose series) 02/13/1988 Pneumococcal Vaccine: 50+ Years (2 of 2 - PCV) 12/09/2015 12/08/2014 Zoster Vaccines (1 of 2) 2019 Depression Screening 06/24/2024 05/06/2024, 03/25/20 24 COVID-19 Vaccine ( - 2024- season) 2025 03/29/2022, 05/16/2021, 10/08/2020, Additional history exists Influenza Vaccine (#1) 2025 , 03/29/2022, 03/30/2010 Social Influencers of Health Screening 05/06/2025 05/06/2024 Cholesterol Screening (Lipid Panel) 01/20/2030 01/20/2025, 12/25/2023, 12/25/2023 DTaP,Tdap,and Td Vaccines (3 - Td or Tdap) 09/20/2031 09/19/2021, 12/10/2011 Colorectal Cancer Screening: Colonoscopy 02/23/2032 02/22/2022 RSV Immunization Adult Patients (1 - 1-dose 75+ series) 02/13/2044 Hepatitis C Screening Completed 01/20/2025 HIB Vaccines [...] 11:11 AM EDT Schizoaffective disorder, bipolar type ([facility] V24, [facility]/HCC V28) EXTERNAL MRI REPORT 03/09/2025 EXTERNAL MRI REPORT 03/09/2025 EXTERNAL CLINICAL LAB 02/15/2025 EXTERNAL CLINICAL LAB [...] Recently Relevant to Health Maintenance Results * ECG 12 lead (03/19/2025 11:11 AM EDT) Impressions Dennis Morin NP - 03/19/2025 11:11 AM EDT SB at 57, QT/QTc of 432/420ms, no ST elevation - Reviewed by Dr. Sinha and myself Dennis Morin NP ECG ORDERABLES Final Result * External MRI Report (03/09/2025) Only the most recent of2 resultswithin the time period is included. Anatomical Region Laterality Modality Magnetic Resonan ce Provider [facility] IMG MRI PROCEDURES Final Result * External clinical lab (02/15/2025) Only the most recent of4 resultswithin the time period is included. Provider [facility] LAB BLOOD ORDERABLES Fin al Result * Prostate specific antigen screen (01/20/2025 7:56 AM EDT) PSA 0.89 0.00 - 4.00 ng/mL LAB CHEMISTRY METHOD 01/20/2025 11:04 AM EDT [facility] Blood Venous [...] Fin al Result [facility] [address] [place] [address], * Hepatitis C antibody (01/20/2025 7:56 AM EDT) [facility] Hepatitis C Antibody Negative Negative LAB CHEMISTRY METHOD 01/20/2025 11:44 AM EDT [facility] Blood Venous blood specimen / Unknown Venipuncture / Unknown 01/20/2025 7:56 AM EDT 01/20/2025 7:56 AM EDT [facility] Zaira Lindo [place] LAB BLOOD ORDERABLES Fin al Result Performing Organization Address [facility] de Phone Number [facility] [address] [place] [address], [place] [phone] * Thyroid stimulating hormone with reflex to free t4 and free t3 (01/20/2025 7:56 AM EDT) [facility] TSH 1.61 0.40 - 4.00 mcIU/mL LAB CHEMISTRY METHOD 01/20/2025 11:37 AM EDT [facility] Blood Venous blood specimen / Unknown Venipuncture / Unknown 01/20/2025 7:56 AM EDT 01/20/2025 7:56 AM EDT Celina GUILLEN LAB BLOOD ORDERABLES Fin al Result Performing Organization Address [facility]/ZIP Co de Phone Number [facility] [address] [place] [address], [place] [phone] * (ABNORMAL) Lipid panel with reflex to direct LDL (01/20/2025 7:56 AM EDT) [facility] Cholesterol 183 0 - 200 mg/dL LAB [...] mg/dL LAB CHEMISTRY METHOD 01/20/2025 10:24 AM [facility] Non HDL Chol. (LDL+VLDL) 128 <145 mg/dL LAB CHEMISTRY METHOD 01/20/2025 10:24 AM EDT [facility] Chol/HDL Ratio 3.3 0.0 - 4.4 LAB CHEMISTRY METHOD [facility]20[facility]25 [facility] Blood Venous blood specimen / Unknown Venipuncture / Unknown 01/20/2025 7:56 AM EDT 01/20/2025 7:56 AM EDT Celina GUILLEN LAB BLOOD ORDERABLES Fin al Result [facility] [address] [place] [address], [place] [phone] * (ABNORMAL) CBC auto differential (01/20/2025 7:56 AM EDT) WBC 7.4 4.8 - 10.8 K/mcL LAB HEMETOLOGY METHOD 01/20/2025 10:49 AM EDT [facility] RBC 4.60 4.50 - 5.50 M/mcL LAB HEMETOLOGY METHOD 01/20/2025 10:49 AM EDT [facility] Hemoglobin 14.5 13.5 - 17.5 g/dL LAB HEMETOLOGY METHOD 01/20/2025 10:49 AM T [facility] Hematocrit 43.9 42.0 - 54.0 % LAB HEMETOLOGY METHOD 01/20/2025 10:49 AM EDT [facility] MCV 94.6 79.0 - 98.0 FL LAB HEMETOLOGY METHOD 01/20/2025 10:49 AM [facility] MCH 31.3 27.0 - 32.0 pcg LAB HEMETOLOGY METHOD 01/20/2025 10:49 AM [facility] MCHC 33.0 32.0 - 37.0 g/dL LAB HEMETOLOGY METHOD 01/20/2025 10:49 AM [facility] RDW 14.3 11.0 - 15.0 % LAB HEMETOLOGY METHOD 01/20/2025 10:49 AM [facility] Platelets 194 130 - 400 K/mcL LAB HEMETOLOGY METHOD 01/20/2025 10:49 AM [facility] MPV 10.7 7.0 - 11.0 FL LAB HEMETOLOGY METHOD 01/20/2025 10:49 AM [facility] NRBC 0.0 <1.0 % LAB HEMETOLOGY METHOD 01/20/2025 10:49 AM [facility] NRBC Absolute 0.00 <0.10 K/mcL LAB HEMETOLOGY METHOD 01/20/2025 10:49 AM [facility] Neutrophils Relative 50.1 % LAB HEMETOLOGY METHOD 01/20/2025 10:49 AM [facility] Lymphocytes Relative 25.4 % LAB HEMETOLOGY METHOD 01/20/2025 10:49 AM [facility] Monocytes Relative 6.6 % LAB HEMETOLOGY METHOD 01/20/2025 10:49 AM [facility] Eosinophils Relative 16.6 % LAB HEMETOLOGY METHOD 01/20/2025 10:49 AM [facility] Basophils Relative 0.9 % LAB HEMETOLOGY METHOD 01/20/2025 10:49 AM [facility] Immature Granulocytes Relative 0.4 % LAB HEMETOLOGY METHOD 01/20/2025 10:49 AM EDT [facility] Neutrophils Absolute 3.72 1.50 - 7.00 K/mcL LAB HEMETOLOGY METHOD 01/20/2025 10:49 AM EDT [facility] Lymphocytes Absolute 1.89 1.00 - 5.00 K/mcL LAB HEMETOLOGY METHOD 01/20/2025 10:49 AM EDT [facility] Monocytes Absolute 0.49 0.20 - 1.00 K/mcL LAB HEMETOLOGY METHOD 01/20/2025 10:49 AM EDT [facility] Eosinophils Absolute 1.23(H) 0.00 - 0.50 K/mcL LAB HEMETOLOGY METHOD 01/20/2025 10:49 AM EDT [facility] Basophils Absolute 0.07 0.00 - 0.20 K/mcL LAB HEMETOLOGY METHOD 01/20/2025 10:49 AM EDT [facility] Immature Granulocytes Absolute 0.03 0.00 - 0.03 K/[facility] LAB HEMETOLOGY METHOD 01/20/2025 10:49 AM EDT [facility] Blood Venous blood specimen / Unknown Venipuncture / Unknown 01/20/2025 7:56 AM EDT 01/20/2025 7:56 AM EDT Celina GUILLEN LAB BLOOD ORDERABLES Fin al Result [facility] [address] [place] [address], * Hemoglobin A1c (01/20/2025 7:56 AM EDT) Hemoglobin A1C 5.1 <6.5 % LAB CHEMISTRY METHOD 01/20/2025 1:40 PM EDT [facility] Mean Bld Glu Estim. 100 mg/dL LAB CHEMISTRY METHOD 01/20/2025 1:40 PM EDT [facility] Blood Venous blood specimen / Unknown Venipuncture / Unknown 01/20/2025 7:56 AM EDT 01/20/2025 7:56 AM EDT us Celina Zairadrake GUILLEN LAB BLOOD ORDERABLES Fin al Result [facility] [address] [place] [address], * Comprehensive metabolic panel (01/20/2025 7:56 AM EDT) Sodium 139 133 - 145 mmol/L LAB CHEMISTRY METHOD 01/20/2025 10:22 AM [facility] Potassium 4.2 3.5 - 5.5 mmol/L LAB CHEMISTRY METHOD 01/20/2025 10:22 AM [facility] Chloride 105 96 - 110 mmol/L LAB CHEMISTRY METHOD 01/20/2025 10:22 AM [facility] CO2 31 21 - 32 mmol/L LAB CHEMISTRY METHOD 01/20/2025 10:22 AM [facility] Anion Gap 3 3 - 11 LAB CHEMISTRY METHOD 01/20/2025 10:22 AM [facility] Glucose 81 70 - 100 mg/dL LAB CHEMISTRY METHOD 01/20/2025 10:22 AM [facility] BUN 8 5 - 25 mg/dL LAB CHEMISTRY METHOD 01/20/2025 10:22 AM [facility] Creatinine 1.02 0.70 - 1.30 mg/dL LAB CHEMISTRY METHOD 01/20/2025 10:22 AM [facility] eGFR 87 >=60 mL/min/1. 73m2 LAB CHEMISTRY METHOD 01/20/2025 10:22 AM [facility] Comment:Calculation based on the Chronic Kidney Disease Epidemiology Collaboration (CKD-EPI) equation refit without adjustment for race. BUN/Creatinine Ratio 7.8 LAB CHEMISTRY METHOD 01/20/2025 10:22 AM [facility] Calcium 9.1 8.5 - 10.5 mg/dL LAB CHEMISTRY METHOD 01/20/2025 10:22 AM [facility] AST (SGOT) 11 10 - 42 unit/L LAB CHEMISTRY METHOD 01/20/2025 10:22 AM [facility] ALT (SGPT) 17 10 - 60 unit/L LAB CHEMISTRY METHOD 01/20/2025 10:22 AM [facility] Alkaline Phosphatase 71 42 - 121 unit/L LAB CHEMISTRY METHOD 01/20/2025 10:22 AM [facility] Total Protein 6.5 6.0 - 8.0 g/dL LAB CHEMISTRY METHOD 01/20/2025 10:22 AM [facility] Albumin 4.1 3.2 - 5.0 g/dL LAB CHEMISTRY METHOD 01/20/2025 10:22 AM [facility] Total Bilirubin 0.8 0.0 - 1.4 mg/dL LAB CHEMISTRY METHOD 01/20/2025 10:22 AM [facility] Blood Venous blood specimen / Unknown Venipuncture / Unknown 01/20/2025 7:56 AM EDT 01/20/2025 7:56 AM EDT Celina GUILLEN LAB BLOOD ORDERABLES Fin al Result [facility] [address] [place] [address], [place] [phone] * External Vascular Ultrasound (12/22/2024) Only the most recent of2 resultswithin the time period is included. Anatomical Region Laterality Modality Ultrasound us Provider [facility] CV VASCULAR PROCEDURES F inal Result * External CT Report (12/22/2024) Only the most recent of2 resultswithin the time period is included. Anatomical Region Laterality Modality Computed Tomogra phy Provider [facility] IMG CT PROCEDURES Final Result * Depression Screening (03/25/2024) Depression Screening abstracted Historical Provider HEALTH MAINTENANCE Final Result * Colonoscopy (02/22/2022) Colonoscopy abnormal, abstracted Anatomical Region Laterality Modality Other Historical Provider HEALTH MAINTENANCE Final Result from Last 3 Months or Most Recently Relevant to Health Maintenance Insurance [facility] Care Teams Contract Accountant Relationship Specialty Start Date End Date Luis Fernando Sinha MD [address] [place] [address] PCP - General Internal Medicine 10/09/21
--- NOTE | 2025-03-23 08:11 | EMG_ITS ---
Chief complaint: Numbness and tingling in both legs Reason for referral: Evaluate for peripheral neuropathy, radiculopathy Referred by: Alfredo Batres MD Procedure done: Bilateral NCS and EMG was performed on the lower extremities Description: Bilateral tibial and peroneal motor studies were performed with F responses. Bilateral tibial H responses were obtained. Bilateral superficial peroneal and sural sensory studies were performed bilateral median and lateral mixed plantars sensory studies were performed an EMG needle examination was performed. Left peroneal study revealed mild slowing across fibular head. Left superficial peroneal sensory studies revealed mild slowing. Sural amplitudes were low with mildly slow conduction velocities. Distal tibial studies in feet revealed significantly reduced amplitude. Needle examination revealed 1+ fibs and positive sharp waves in right tibialis anterior with long duration motor unit potential with decreased recruitment in right tibialis anterior, ED be, and left ED B. 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
== END 2025-03-23 07:49 | disposition home or self-care (01) ==
LOC: HO.NEURO 07:48
PROVIDERS: PCP Internal Medicine; Visit Provider Psychiatry & Neurology Neurology
DX: R20.0 Anesthesia of skin (principal); R20.2 Paresthesia of skin; G62.9 Polyneuropathy, unspecified
CPT/HCPCS: 95886; 95913

== ENCOUNTER → 2025-03-23 08:11 | Outpatient (BNV) | payer OTHER, SELFPAY | PROVIDERS: PCP Internal Medicine; Visit Provider Psychiatry & Neurology Neurology | DX: R20.0 Anesthesia of skin (principal) | CPT/HCPCS: 95886; 95913 ==

== ENCOUNTER 2025-05-13 12:13 | Outpatient (AMB) | payer OTHER, SELFPAY ==
--- NOTE | 2025-05-13 12:32 | A.OFFVIS_ITS ---
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 Accompanied by: Self / Same As Patient Allergies No Known Allergies Allergy (Verified 05/13/25 12:33) Medication List - Last Reconciled 05/13/25 by Kalee Batres MD albuterol sulfate 90 mcg/actuation 2 puffs inhalation Q6H PRN cholecalciferol (vitamin D3) 50 mcg PO DAILY cyanocobalamin (vitamin B-12) (Vitamin B-12) 1,000 mcg PO DAILY duloxetine 60 mg PO ONCE gabapentin 300 mg orally 1 cap at 6pm and 2 caps at 9 pm; polyethylene glycol 3350 (Miralax) 17 grams PO DAILY quetiapine 50 mg PO BEDTIME ropinirole 1 mg PO BEDTIME HPI Comments Details: 55y/o male comes for follow up of numbness and tingling in yinka distal LE which he started noticing about 4 month ago. His emg showed mild neuropathy . His RLS is better with increase in gabapentin He started having right hand pain and weakness for past 2 weeks .It is worse when he wakes up in the morning History form his initial visit- 12/2024 He reports it started as a sharp pain in his toes and progressed to lower 1/3 of his legs. He reports feeling like walking on cotton , has poor balance and has had falls. He has h/o restless leg syndrome and is on medications - but says this is different. He reports fh/o neuropathy in his 2 siblings and his mother . He had a gastric sleeve surgery in 2016 and lost 160 lbs . 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 [facility] Medical History (Updated 05/13/25 @ 12:56 by Kalee Batres MD) Pain and numbness of right upper extremity Restless legs syndrome (RLS) Numbness and tingling of both legs Hyperreflexic Low back pain Neuropathy Mild persistent asthma without complication Other specified polyneuropathies RLS (restless legs syndrome) Anxiety and depression Venous insufficiency of left lower extremity Recurrent deep vein thrombosis of both lower extremities Depression DVT (deep venous thrombosis) Surgical History S/P gastric sleeve procedure Family History Mother Guillain Spencer? syndrome Sister Guillain Spencer? syndrome Social History Household Members: Spouse and Children Housing: House Do you presently have visiting nurse or other home services: No Alcohol intake: current Alcohol intake frequency: 3 or more drinks per day Alcohol type: other Patient Tobacco Use Status: Never used Tobacco Substance Use Type: Marijuana service: No Review of Systems Neuro Reports Sensory deficit (Neuro) Physical Exam Vital Signs: Last Vital Signs Pulse 70 05/13/25 12:33 BP 128/84 05/13/25 12:33 Pulse Ox 99 05/13/25 12:33 Oxygen Delivery Method Room Air 05/13/25 12:33 BMI result Body Mass Index 28.7 Const General: cooperative, comfortable and no acute distress Nutritional Appearance: average body habitus Orientation/consciousness: patient oriented x3 Eyes Pupils: Equal, round and reactive pupils present Neuro General: patient oriented x3, moves all extremities and no focal motor deficits Cranial nerves: Yes Facial sensation intact/muscles of mastication intact, Yes Equal, round and reactive pupils present, Yes Bilaterally intact EOM present, Yes Nystagmus not present, Yes Normal facial strength present, Yes Midline tongue present, Yes Symmetric palate elevation present and Yes Ability to bilaterally elevate shoulders present Cognition (Neuro): normal cognition Gait exam (Neuro): Antalgic gait present Motor exam (neuro): 5/5 motor strength present throughout and Normal motor muscle tone present throughout Sensory Exam: Sensory deficit (Neuro) and Abnormal lower extremity sensory exam (decreased PP and light touch vibration in yinka LE upto lower 1/3 leg .) Deep tendon reflexes (DTR's): Right triceps reflex intensity grade: 2+, Left triceps reflex intensity grade: 2+, Rt Biceps (C5, C6): 2+, Left biceps reflex intensity grade: 2+, Right brachioradialis reflex intensity grade: 2+, Left brachioradialis reflex intensity grade: 2+, Right patellar reflex intensity grade: 4+, Left patellar reflex intensity grade: 4+, Right ankle reflex intensity grade: 0 and Left ankle reflex intensity grade: 0 Coordination: [id number] test normal Results Reviewed Results Reviewed: MRI LS spine 2024 Multilevel degenerative change as outlined above Small posterior annular tears L4-5 and L5-S1 Assessment & Plan Assessment & Plan (1) Neuropathy: Code(s): G62.9 - Polyneuropathy, unspecified Category: Medical (2) Low back pain: Code(s): M54.50 - Low back pain, unspecified Category: Medical (3) Restless legs syndrome (RLS): Code(s): G25.81 - Restless legs syndrome Category: Medical Plan MRI LS spine reviewed - multilevel deg changes EMG NCS Right UE - wrist splint Increase gabapentin 300 mg 1-2 tabs qhs Orders: Orders NE nerve conduction velocity Today M79.601 - Pain in right arm, R20.0 - Anesthesia of skin NE electromyogram (EMG) Today M79.601 - Pain in right arm, R20.0 - Anesthesia of skin Medications: New arm brace As directed [wrist splint] As directed 1 ea 0RF numbness M79.601 - Pain in right arm, R20.0 - Anesthesia of skin Coding Level of Care Code Est Pt Level 4 (59721) Diagnoses Neuropathy G62.9 Low back pain M54.50 Restless legs syndrome (RLS) G25.81
[2025-05-13 12:33] VITALS: BP 128/84; PULSE 70; O2SAT 99; BMI 28.7
== END 2025-05-13 13:03 | disposition home or self-care (01) ==
LOC: HO.HSMS 12:14
PROVIDERS: PCP Internal Medicine; Visit Provider Psychiatry & Neurology Neurology
DX: G62.9 Polyneuropathy, unspecified (principal); M54.50 Low back pain, unspecified; G25.81 Restless legs syndrome
CPT/HCPCS: 99214

== ENCOUNTER → 2025-05-13 12:13 | Outpatient (BNVA) | payer OTHER, SELFPAY | PROVIDERS: PCP Internal Medicine; Visit Provider Psychiatry & Neurology Neurology | DX: M79.601 Pain in right arm (principal); R20.0 Anesthesia of skin; G25.81 Restless legs syndrome; G62.9 Polyneuropathy, unspecified | CPT/HCPCS: 99212 ==

== ENCOUNTER 2025-06-15 07:43 | Outpatient (REF) | payer OTHER, SELFPAY ==
--- OUTSIDE RECORDS SUMMARY | 2025-06-15 07:45 | XMS_ITS | Clinical Summary ---
Author Organization [facility] [address] [place] [address] [place] [address] Phone Care Team Providers Care Slip Maker Name Role Phone Luis Fernando Sinha MD Primary Care Provider [phone] Allergies No known active allergies Medications albuterol [...] swallow. 1 each 5 01/20/20 26 Active cholecalciferol (VITAMIN D-3) 25 mcg (1,000 unit) tablet [...] bedtime. Take 1-2 tablets at bedtime Active albuterol HFA (PROAIR HFA ; PROVENTIL HFA ; VENTOLIN HFA) 90 mcg/actuation inhaler Inhale 2 puffs by mouth every 6 (six) hours if needed for wheezing. 6.7 g 2 5 03/26/20 Active QUEtiapine (SeroqueL) 100 mg tablet Take 2 tablets (200 mg total) by mouth at bedtime. 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 anticoagulation Obstructive sleep apnea 11/25/2014 Hand pain 04/29/2012 Hyperlipidemia 12/18/2011 RLS (restless legs syndrome) 12/15/2011 Encounters Date Type Department Care Team Description 05/07/2025 10:00 AM EST Office Visit Adult Medicine [address] [phone] Dennis Morin, LALI Schizoaffective disorder, bipolar type (CMS/HCC V24, CMS/HCC V28) (Primary Dx) 04/09/2025 11:30 AM EDT Office Visit Adult Medicine [address] [place], [place] [phone] Dennis Morin NP Schizoaffective disorder, bipolar type ([facility] V24, [facility] V28) (Primary Dx) 03/26/2025 9:45 AM EDT Office Visit Pulmonology - [place] [address] [place] [phone] Singh Ortega MD Mild persistent asthma without complication (Primary Dx) 03/19/2025 10:30 AM EDT Office Visit Adult Medicine [facility] [address] [place] [address] Dennis Morin NP Schizoaffective disorder, bipolar type ([facility] V24, [facility] V28) (Primary Dx) from Last 3 Months Immunizations Immunization Administration [...] COMMENT: Spinal stimulator placement GASTRIC BYPASS PROCEDURE: DE GASTRIC RSTCV W/BYP W/SM INT RCNSTJ LIMIT ABSRPJ Medical History Medical History Date Comments RLS (restless legs syndrome) DX: RLS (restless legs syndrome) DVT (deep venous thrombosis) ([facility] V24, [facility] V28) DX:DVT (deep venous thrombo sis) ([facility]); COMMENT: left lef 2011 Hypothyroid DX:Hypothyroid Hand pain 04/29/2012 DX:Hand pain DVT (deep venous thrombosis) ([facility] V24, [facility] V28) 12/08/2014 DX:DVT (deep venous thrombo sis) ([facility]); COMMENT: Recurrent DVT, follows with vascular service, [...] care for your loved ones. For example, infant childcare provider or elderly care for an older adult? [...] on file Sexual Orientation Not on file Last Filed Vital Signs Vital Sign Reading Time Taken Comments Blood Pressure 131/70 05/07/2025 9:56 AM EST Pulse 65 05/07/2025 9:56 AM EST Temperature 36.4 C (97.6 F) 03/26/2025 10:03 AM EDT Respiratory Rate 20 03/26/2025 10:0 3 AM EDT Oxygen Saturation 98% 03/26/2025 10: 03 AM EDT Inhaled Oxygen Concentration - - Weight 99.7 kg (219 lb 12.8 oz) 025 10:03 AM EDT Height 190.5 cm (6' 3 ) 03/26/2025 10:0 3 AM EDT Body Mass Index 27.47 03/26/2025 10:03 AM EDT Plan of Treatment Upcoming Encounters Date Type Department Care Team (Late st Contact Info) Description 06/23/2025 10:30 AM EST Office Visit Adult Medicine [address] [phone] Luis Fernando Sinha MD [address] [place] [address] 08/09/2025 10:00 AM EST Office Visit Adult Medicine [address] [phone] Dennis Morin NP [address] [place] [address] 03/28/2026 9:30 AM EDT Office Visit Pulmonology - [address] [place] [phone] Singh Ortega MD [facility] [place] [phone] Health Maintenance Due Date Last Done Comments Hepatitis B Vaccines (1 of 3 - 19+ 3-dose series) 02/13/1988 Pneumococcal Vaccine: 50+ Years (2 of 2 - PCV) 12/09/2015 12/08/2014 RSV Immunization Adult Patients (1 - Risk 50-74 years 1-dose series) 2019 Zoster Vaccines (1 of 2) 2019 Depression [...] disorder, bipolar type (CMS/HCC V24, CMS/HCC V28) HEPATITIS C ANTIBODY Routine 01/20/2025 7:56 AM EDT Need for hepatitis C screening test LIPID PANEL WITH REFLEX TO DIRECT LDL Routine 01/20/2025 7:56 AM EDT Anxiety and depression Primary insomnia Hyperlipidemia, unspecified hyperlipidemia type RLS (restless legs syndrome) Fibromyalgia Personal history of DVT (deep vein thrombosis) Marijuana smoker Shortness of breath Screening for prostate cancer Need for hepatitis C screening test DEPRESSION SCREENING Routine 03/25/2024 COLONOSCOPY Routine 02/22/2022 from Last 3 Months or Most Recently Relevant to Health Maintenance Results * ECG 12 lead (03/19/2025 11:11 AM EDT) Impressions Dennis Morin NP - 03/19/2025 11:11 AM EDT SB at 57, QT/QTc of 432/420ms, no ST elevation - Reviewed by Dr. Sinha and myself Dennis Morin NP ECG ORDERABLES Final Result * Hepatitis C antibody (01/20/2025 7:56 AM EDT) Hepatitis C Antibody Negative Negative LAB CHEMISTRY METHOD 01/20/2025 11:44 AM EDT [facility] Blood Venous blood specimen / Unknown Venipuncture / Unknown 01/20/2025 7:56 AM EDT 01/20/2025 7:56 AM EDT Celina GUILLEN LAB BLOOD ORDERABLES Fin al Result [facility] [address] [place] [address], [place] [phone] * (ABNORMAL) Lipid panel with reflex to direct LDL (01/20/2025 7:56 AM EDT) Cholesterol 183 0 - 200 mg/dL LAB CHEMISTRY METHOD 01/20/2025 10:24 AM EDT [facility] Triglycerides 81 0 - 150 mg/dL LAB CHEMISTRY METHOD 01/20/2025 10:24 AM EDT [facility] HDL 55 >=40 mg/dL LAB CHEMISTRY METHOD 01/20/2025 10:24 AM EDT [facility] LDL Calculated 112(H) 0 - 100 mg/dL LAB CHEMISTRY METHOD 01/20/2025 10:24 AM EDT [facility] VLDL Cholesterol Montez 16.2 mg/dL LAB CHEMISTRY METHOD 01/20/2025 10:24 AM EDT [facility] Non HDL Chol. (LDL+VLDL) 128 <145 mg/dL LAB CHEMISTRY METHOD 01/20/2025 10:24 AM EDT [facility] Chol/HDL Ratio 3.3 0.0 - 4.4 LAB CHEMISTRY METHOD 01/20/2025 10:24 AM EDT [facility] Blood Venous blood specimen / Unknown Venipuncture / Unknown 01/20/2025 7:56 AM EDT 01/20/2025 7:56 AM EDT Celina GUILLEN LAB BLOOD ORDERABLES Fin al Result [facility] [address] [place] [address], [place] [phone] * Depression Screening (03/25/2024) Depression Screening abstracted Historical Provider HEALTH MAINTENANCE Final Result * Colonoscopy (02/22/2022) Colonoscopy abnormal, abstracted Anatomical Region Laterality Modality Other Historical Provider HEALTH MAINTENANCE Final Result from Last 3 Months or Most Recently Relevant to Health Maintenance Insurance [facility] [employer] PLAN [facility] Member Subscriber Plan / Payer (Ef fective 2024-Present) Name:Polo Escobar Relation to Subscriber:Self Name:Polo Escobar Payer ID:[id number] Group ID:Not on file Type:Not on file Address: [address] [place] [id number] Care Teams Slip Maker Relationship Specialty Start Date End Date Luis Fernando Sinha MD [address] [place] [address] PCP - General Internal Medicine 10/09/21
--- NOTE | 2025-06-15 07:46 | EMG_ITS ---
Chief complaint: Pain in right arm Referred by: Alfredo Batres MD Procedure done: NCS and EMG of right upper extremity Right median and ulnar motor studies were performed. Right median and ulnar mixed sensory studies were performed. Right radial sensory and median and lateral antecubital brachial sensory studies were performed and needle examination was performed. Findings: Right median motor distal latencies was mildly prolonged. Right median mixed distal latencies was moderately prolonged with moderate slowing of conduction velocity. Tall polyphasic motor unit potentials were noted in right lower cervical paraspinal. Impression: 1. [id number] right median neuropathy across carpal tunnel 2. Mild right lower cervical radiculopathy [place] [id number] [facility]
== END 2025-06-15 07:44 ==
LOC: HO.NEURO 07:43
PROVIDERS: PCP Internal Medicine; Visit Provider Psychiatry & Neurology Neurology
DX: M79.601 Pain in right arm (principal); R20.0 Anesthesia of skin
CPT/HCPCS: 95886; 95910

== ENCOUNTER → 2025-06-15 07:46 | Outpatient (BNV) | payer OTHER, SELFPAY | PROVIDERS: PCP Internal Medicine; Visit Provider Psychiatry & Neurology Neurology | DX: G56.01 Carpal tunnel syndrome, right upper limb (principal) | CPT/HCPCS: 95886; 95910 ==